=== PATIENT | female | born 2000 | race Caucasian/White ===

== ENCOUNTER 2024-03-07 13:37 | Emergency (ER) | payer OTHER, SELFPAY ==
[2024-03-07 13:39] VITALS: BP 152/86
--- NOTE | 2024-03-07 14:16 | ED.GENMED ---
History of Present Illness
General
Chief Complaint: Abdominal Pain
Source: patient
Exam Limitations: none
Time Seen by Provider: 03/07/24 14:03
Nursing documentation reviewed up to this point in time: agreed with
History of Present Illness
History of Present Illness:
23 yo female here for nausea that came on suddenly 1 a.m., then vomited and diarrhea that has been persistent since then.
Abdominal pain is upper, crampy, comes in waves.
Denies f/c/d/c. She had a normal BM this morning
Pt has not smoked pot in 2-3 weeks due to losing her medical card and not being able to afford it.
Past History
Past History
ED Past Medical History: Psychiatric (anxiety )
ED Past Surgical History: Other (wisdom teeth)
Social History
Tobacco: Non-smoker
Alcohol: Occasional
Personal: Single
Living: with family
Employment: Student
Review of Systems
Review of Systems
Allergies reviewed?: Yes
All Other Systems: ROS reviewed and negative except as documented in HPI and ROS
Constitutional: Denies fever
Respiratory: Denies trouble breathing
Cardiac: Denies chest pain
ABD/GI: Reports abdominal pain and vomiting; Denies diarrhea or constipated
: Denies dysuria, frequency, difficulty voiding or urgency
Musculoskeletal: Reports no symptoms
Skin: Reports no symptoms
Neurological: Reports no symptoms
Phy Exam
Physical Exam
Physical Exam:
GENERAL: No acute distress. A&Ox3.
CONSTITUTIONAL: Afebrile.
EYES: clear, conjunctivae normal
ENMT: moist mucus membranes, Pharynx nl
RESPIRATORY: Regular respirations, nonlabored, lungs clear.
CARDIOVASCULAR: Regular rate and rhythm, no murmurs, no rubs.
GI: Soft, tender generally about the abdomen, frequent episodes abd spasms, normal BS
MUSCULOSKELETAL: Moves with ease. Well perfused.
SKIN: Warm, dry, pink
PSYCH: Normal mood and affect. Well kept, interactive and appropriate
NEUROLOGIC: Awake, alert and oriented. No focal neurological deficits
Course
Orders/Labs/Results
Orders:
Orders
03/07/24 14:13
Dicyclomine HCl [Bentyl] 20 mg IM NOW STA
Ketorolac [Toradol] 15 mg IV NOW STA
03/07/24 14:14
Ondansetron Injectable [Zofran] 4 mg IV NOW STA
Test Result ONCE
03/07/24 14:15
0.9% Sodium Chloride 1000 ml [Nss] 1,000 ml IV BOLUS
03/07/24 14:18
Complete Blood Count/With Diff Urgent
03/07/24 14:53
HYDROmorphone [Dilaudid] 1 mg IV NOW STA
03/07/24 14:56
Comprehensive Metabolic Panel Urgent
HCG, Serum Qualitative Screen Urgent
Lipase Urgent
Abnormal Lab Results
03/07/24 03/07/24
14:18 14:56
WBC 16.1 H 10^3/uL
(4.8-10.8)
Abs Immat Gran (auto) 0.1 H 10^3/uL
(0-0.05)
Absolute Neuts (auto) 15.1 H 10^3/uL
(1.4-6.5)
Absolute Lymphs (auto) 0.7 L 10^3/uL
(1.2-3.4)
Neutrophils % 94.0 H %
(42.2-75.2)
Lymphocytes % 4.0 L %
(20.5-51.1)
Monocytes % 1.4 L %
(1.7-9.3)
Carbon Dioxide 20 L mmol/L
(22-30)
Creatinine 0.5 L mg/dL
(0.6-1.0)
Glucose 115 H mg/dl
(70-99)
AST 42 H U/L
(14-36)
Total Protein 8.7 H g/dl
(6.3-8.2)
Albumin 5.3 H g/dl
(3.5-5.0)
03/07/24 14:18
03/07/24 14:56
Vital Signs
Initial and Last Documented VS:
Initial Vital Signs
Temp Pulse Resp BP Pulse Ox
98.3 F 59 16 152/86 98
03/07/24 13:39 03/07/24 13:39 03/07/24 13:39 03/07/24 13:39 03/07/24 13:39
Last Documented Vital Signs
Temp Pulse Resp BP Pulse Ox
98.3 F 59 22 121/62 100
03/07/24 13:39 03/07/24 13:39 03/07/24 14:00 03/07/24 16:00 03/07/24 16:49
MDM/Problems Addressed
Differential Diagnosis Includes:
gastroenteritis, colitis, diverticulitis
MDM/Problems Addressed:
23 yo female here for nausea that came on suddenly 1 a.m., then vomited and diarrhea that has been persistent since then.
Abdominal pain is upper, crampy, comes in waves.
Denies f/c/d/c. She had a normal BM this morning
Pt has not smoked pot in 2-3 weeks due to losing her medical card and not being able to afford it.
Afebrile, intermittent crampy pains w nausea during exam.
2:55 PM:
After medications and IV fluids patient is extremely anxious writhing around on the stretcher saying nothing has helped her pain. Dilaudid ordered
3:40 p.m.
CBC: WBC 16 (most likely reactive to vomiting)
CMP: No clinically significant abnormality
After IV Dilaudid pt sleeping
Tender, no guarding or wincing, whispers 'yeah' when asked, with every area of he abdomen palpated
Will obtain CT scan
4:40 p.m.
In to re evaluate pt
Pt is 100% pain free, smiling
Abdomen benign. Pt and mom are comfortable foregoing the abd CT as she is asymptomatic, states they live 5 minutes away, return instructions reviewed.
Rx for Bentyl, Zofran sent to her pharmacy
*Critical Care Note
Total Time (30-74mins, 75-104mins- exclusive of procedures): Not Applicable
ED Attending Note
-
Portions of this chart may have been created with voice recognition software.� Occasional wrong word or��sound alike� substitutions may have occurred due to the inherent limitations of voice recognition software.
Discharge Plan
Departure
Patient Disposition: Home (Routine Discharge)
Date of Disposition: 03/07/24
Time of Disposition: 16:43
Patient with high blood pressure during this ER visit?: No
Condition: Good
Discharge Problem:
Gastritis, Abdominal pain
Instructions: Gastritis (DC), Abdominal Pain
Prescriptions:
New
dicyclomine 10 mg capsule
10 mg PO QID PRN (Reason: abd cramps/pain) Qty: 20 0RF
ondansetron 4 mg tablet,disintegrating
4 mg PO Q8H PRN (Reason: nausea and vomiting) 4 Days Qty: 12 0RF
Referrals:
Christina Marinelli MD [Family Provider] - As needed
Activity Restrictions/Additional Instructions:
As we discussed, I sent a prescription to your pharmacy for Bentyl (dicyclomine) for abdominal cramps and also for Zofran to use as needed for nausea
See your doctor in 3-5 days if not 100% better
Return here for fever, repeated vomiting despite the Zofran, worsening pain despite the Bentyl, or feeling sicker in any way.
Interventions
Interventions:
*Risk Screen - Suicide Last Done: 03/07/24 13:39
*General Assessment Last Done: 03/07/24 13:47
*Neglect/Abuse Screening Last Done: 03/07/24 13:39
*ED COVID-19 Vaccine History Last Done: 03/07/24 13:47
*Nursing Disposition Last Done: 03/07/24 17:06
UP-Gzbzvg-Gjteqcnuwu Assessment Last Done: 03/07/24 13:47
Discharge Date and Time
Discharge Date/Time: 03/07/24 17:06
Print Language: GEORGIAN
[2024-03-07] MEDS: NSS 1000 IV (14:18)
[2024-03-07] MEDS: ZOFRAN 4 MG IV (14:19)
[2024-03-07] MEDS: BENTYL 20 MG IM (14:19)
[2024-03-07] MEDS: TORADOL 15 MG IV (14:19)
[2024-03-07 14:38] LABS: % Basophils 0.2 % (0-2); % Immature Granulocytes 0.4 % (0-0.5); % Monocytes 1.4 % (1.7-9.3); Absolute Immature Granulocytes 0.1 10^3/uL (0-0.05); Absolute Lymphocytes 0.7 10^3/uL (1.2-3.4); Absolute Monocytes 0.2 10^3/uL (0.1-0.6); Absolute Neutrophils 15.1 10^3/uL (1.4-6.5); Hematocrit 43.6 % (37.0-47.0); Hemoglobin 14.9 g/dL (12.0-16.0); Mean Corp Hgb Conc. 34.2 g/dL (33.0-37.0); Mean Corpuscular Hgb 29.8 pg (27.0-31.0); Mean Corpuscular Volume 87.2 fL (81.0-99.0); Mean Platelet Volume 9.6 fL (7.4-10.4); Nucleated Red Blood Cells % 0 %; Platelet Count 307 10^3/uL (130-400); Red Cell Dist. Width 12.8 % (11.5-14.5); White Blood Cell Count 16.1 10^3/uL (4.8-10.8)
[2024-03-07] MEDS: DILAUDID 1 MG IV (15:03)
[2024-03-07 15:13] VITALS: BP 140/80
[2024-03-07 15:16] LABS: HCG, Serum Qualitative Screen Negative
[2024-03-07 15:19] LABS: ALT (SGPT) 28 U/L (0-35); AST (SGOT) 42 U/L (14-36); Albumin 5.3 g/dl (3.5-5.0); Alkaline Phosphatase 80 U/L (38-126); Blood Urea Nitrogen 10 mg/dl (7-17); Calcium 9.7 mg/dl (8.4-10.2); Carbon Dioxide 20 mmol/L (22-30); Chloride 104 mmol/L (98-107); Glucose 115 mg/dl (70-99); Lipase 57 U/L (23-300); Sodium 143 mmol/L (135-145); Total Bilirubin 0.6 mg/dl (0.2-1.3); Total Protein 8.7 g/dl (6.3-8.2); eGFR > 60.00
[2024-03-07 16:00] VITALS: BP 121/62
== END 2024-03-07 17:06 | disposition home or self-care (01) ==
LOC: EMR 13:37
PROVIDERS: Student in an Organized Health Care Education/Training Program; EMERGENCY PHYSICIAN Registered Nurse; FAMILY PHYSICIAN Family Medicine
DX: R10.10 Upper abdominal pain, unspecified (principal); K29.70 Gastritis, unspecified, without bleeding
CPT/HCPCS: 99284; 96374; 96375 ×2; 96361; 96372; 80053; 83690; 84703; 85025

== ENCOUNTER 2024-03-09 07:23 | Emergency (ER) | payer OTHER, SELFPAY ==
--- NOTE | 2024-03-09 07:35 | ED.GENMED ---
History of Present Illness
General
Chief Complaint: Abdominal Symptoms
Time Seen by Provider: 03/09/24 07:35
History of Present Illness
History of Present Illness:
TIME OF INITIAL ENCOUNTER: 7:40 AM
HPI: Patient presents due to intermittent abdominal pain over the last couple of days. Upon arrival, she was a rather limited historian as she was intermittently writhing in discomfort and could not give appropriate responses to questioning. The
patient came in due to abdominal pain. She was seen here 2 days ago with vomiting and diarrhea.
EXAM:
GENERAL: The patient appeared in severe distress upon arrival rocking back and forth on the stretcher
HEENT: Moist oral mucosa
CARDIOVASCULAR: No murmurs, normal heart rate, regular rhythm, No chest wall tenderness
PULMONARY: No respiratory distress, breath sounds are clear and equal
ABDOMEN: Soft with no peritoneal signs but exam limited, no definite tenderness
NEUROLOGIC: Excellent strength all extremities, no coordination deficits
PSYCHIATRIC: Somewhat of a bizarre affect at times
EXTREMITIES: Nontender, no edema, moves all extremities equally
SKIN: No rash, no lesions
NUMBER AND COMPLEXITY OF PROBLEMS ADDRESSED AT THE ENCOUNTER
� Chronic conditions affecting care: No significant past medical history but does have a history of anxiety
� Acute Exacerbation and/or Progression of Chronic Illness: This is an acute problem
� Differential Diagnosis includes: Inflammatory bowel disease, irritable bowel syndrome, anxiety
AMOUNT AND/OR COMPLEXITY OF DATA TO BE REVIEWED AND ANALYZED
� I performed an independent evaluation of and my interpretation is:
EKG:
CT: CT imaging personally reviewed and agree with radiologist interpretation that there is a small amount of free fluid and suggestion for a recently ruptured right ovarian cyst
X-rays:
Laboratory Studies: White count 15.6, hemoglobin 14.3, hCG negative, bicarb 21
Other:
� Review of other/old records: I reviewed records, the patient had a white count of 16.1 2 days ago and hCG was negative at that time. No imaging was obtained at that time.
� Clinical information was obtained by an independent historian: I spoke to family at bedside
� Prescriptions/Medications Considered but not given: Lives at home
� Further testing considered but not performed: Considered ultrasound however the size of the ovarian cyst is relatively small and symptoms are more related to nausea/vomiting as opposed to pelvic pain.
RISK OF COMPLICATIONS AND/OR MORBIDITY OR MORTALITY OF PATIENT MANAGEMENT
� Social determinants of health affecting care: Lives at home, has intermittently been using marijuana
� Discussion with other providers:
� Escalation of care including admission/observation vs risk of discharge considered:
ANY OTHER UPDATES:
8:15 AM: Patient now admits to using marijuana last night however had not been using it regularly as she had in the past. Arrives with rather significant discomfort and leukocytosis persist�will obtain CT imaging.
9:30 AM: Patient went over to CT, she could not lay flat and refused to try further for CT imaging
10 AM: On reassessment, the patient appears more comfortable and was resting comfortably however when I awaken her, she says that she wants to feel better immediately�will try Reglan with Benadryl.
1 PM: Added Dilaudid for additional pain control.
2:10 PM: Appears comfortable on reassessment. Based on CT, I did inform patient regarding ovarian cyst with possible rupture.
Past History
Past History
ED Past Medical History: Psychiatric (anxiety )
ED Past Surgical History: Other (wisdom teeth)
Social History
Tobacco: Non-smoker
Alcohol: Occasional
Personal: Single
Living: with family
Employment: Student
Phy Exam
Physical Exam
Physical Exam:
See HPI
Course
Orders/Labs/Results
Orders:
Orders
03/09/24 07:42
0.9% Sodium Chloride 1000 ml [Nss] 1,000 ml IV BOLUS
Lorazepam [Ativan] 1 mg IV NOW STA
03/09/24 07:43
Ondansetron Injectable [Zofran] 4 mg IV NOW STA
03/09/24 07:44
CT Abd/pelvis W Iv Cont Urgent
Comment:
Reason For Exam: periumbilical pain
Test Result ONCE
03/09/24 07:45
Ketorolac [Toradol] 15 mg IV NOW STA
03/09/24 08:01
Complete Blood Count/With Diff Urgent
Comprehensive Metabolic Panel Urgent
HCG, Serum Qualitative Screen Urgent
Lipase Urgent
03/09/24 10:00
Diphenhydramine [Benadryl] 25 mg IV NOW STA
Metoclopramide [Reglan] 10 mg IV NOW STA
03/09/24 12:36
HYDROmorphone [Dilaudid] 1 mg IV NOW STA
Abnormal Lab Results
03/09/24
08:01
WBC 15.6 H 10^3/uL
(4.8-10.8)
Abs Immat Gran (auto) 0.1 H 10^3/uL
(0-0.05)
Absolute Neuts (auto) 13.6 H 10^3/uL
(1.4-6.5)
Neutrophils % 87.6 H %
(42.2-75.2)
Lymphocytes % 8.0 L %
(20.5-51.1)
Potassium 3.4 L mmol/L
(3.5-5.1)
Carbon Dioxide 21 L mmol/L
(22-30)
BUN 20 H mg/dl
(7-17)
Glucose 113 H mg/dl
(70-99)
AST 54 H U/L
(14-36)
03/09/24 08:01
03/09/24 08:01
Vital Signs
Initial and Last Documented VS:
Initial Vital Signs
Temp
36.7 C
03/09/24 07:25
Last Documented Vital Signs
Temp Pulse Resp BP Pulse Ox
36.7 C 84 18 167/75 100
03/09/24 07:25 03/09/24 12:50 03/09/24 12:50 03/09/24 12:50 03/09/24 12:50
*Critical Care Note
Total Time (30-74mins, 75-104mins- exclusive of procedures): Not Applicable
ED Attending Note
-
Portions of this chart may have been created with voice recognition software.� Occasional wrong word or��sound alike� substitutions may have occurred due to the inherent limitations of voice recognition software.
Discharge Plan
Departure
Patient Disposition: Home (Routine Discharge)
Date of Disposition: 03/09/24
Time of Disposition: 14:16
Patient with high blood pressure during this ER visit?: Yes
Discharge Problem:
Abdominal pain
Instructions: Diarrhea in teens and adults, Nausea and Vomiting, Adult (DC), Ovarian Cyst ED, Abdominal Pain, BLOOD PRESSURE
Prescriptions:
No Action
dicyclomine 10 mg capsule
10 mg PO QID PRN (Reason: abd cramps/pain) Qty: 20 0RF
ondansetron 4 mg tablet,disintegrating
4 mg PO Q8H PRN (Reason: nausea and vomiting) 4 Days Qty: 12 0RF
Referrals:
Mukund Phipps MD [Family Provider] -
Maryellen Burgos MD [Active] - Follow up in 2-3 days
Activity Restrictions/Additional Instructions:
White count remains elevated however lower today than it was the other day. Other basic blood work is unremarkable. We gave a liter of fluid. We also gave Toradol along with fluids, Zofran, Reglan with Benadryl and then a dose of Dilaudid.
CAT scan shows '1. Limited evaluation of the bowel given paucity of intra-abdominal fat and absence of oral contrast. The appendix is not visualized, though likely located somewhere within the pelvis. No abscess or organized fluid collection
identified. 2. Small amount of complex/hemorrhagic free fluid within the pelvis with prominent right adnexal cyst measuring up to 2.4 cm. Findings and patient pain may be related to ruptured cyst. 3. 2.8 mm nodule within the left lower lobe,
of doubtful clinical significance in a patient of this age.'
Regarding the note of ovarian cyst, I have given you the contact information of a local receptionist telephone operator. Please follow-up with your primary care doctor. I recommend 3-4 tcil-tku-uwgvzin ibuprofen (Motrin) every 8 hours with food for a few days.
Return here if worse or other concerns.
I strongly recommend stopping marijuana use completely given the possibly of cannabinoid hyperemesis syndrome.
Interventions
Interventions:
*Risk Screen - Suicide Last Done: 03/09/24 07:25
*General Assessment Last Done: 03/09/24 07:57
*Neglect/Abuse Screening Last Done: 03/09/24 07:25
ED- Fall Risk Assessment Last Done: 03/09/24 07:57
*ED COVID-19 Vaccine History Last Done: 03/09/24 07:57
QJ-Rtsgdr-Qavaesieow Assessment Last Done: 03/09/24 08:21
Discharge Date and Time
Print Language: BOTSWANAN
[2024-03-09] MEDS: ATIVAN 1 MG IV (08:05)
[2024-03-09] MEDS: NSS 1000 IV (08:07)
[2024-03-09] MEDS: ZOFRAN 4 MG IV (08:08)
[2024-03-09] MEDS: TORADOL 15 MG IV (08:19)
[2024-03-09 08:22] LABS: % Basophils 0.3 % (0-2); % Eosinophils 0.1 % (0-6); % Immature Granulocytes 0.3 % (0-0.5); % Monocytes 3.7 % (1.7-9.3); % Neutrophils 87.6 % (42.2-75.2); Absolute Immature Granulocytes 0.1 10^3/uL (0-0.05); Absolute Lymphocytes 1.2 10^3/uL (1.2-3.4); Absolute Monocytes 0.6 10^3/uL (0.1-0.6); Absolute Neutrophils 13.6 10^3/uL (1.4-6.5); Hematocrit 39.6 % (37.0-47.0); Hemoglobin 14.3 g/dL (12.0-16.0); Mean Corp Hgb Conc. 36.1 g/dL (33.0-37.0); Mean Corpuscular Volume 85.9 fL (81.0-99.0); Mean Platelet Volume 9.8 fL (7.4-10.4); Nucleated Red Blood Cells % 0 %; Platelet Count 299 10^3/uL (130-400); Red Blood Cell Count 4.61 10^6/uL (4.20-5.40); Red Cell Dist. Width 12.5 % (11.5-14.5); White Blood Cell Count 15.6 10^3/uL (4.8-10.8)
[2024-03-09 08:32] LABS: HCG, Serum Qualitative Screen Negative
[2024-03-09 08:39] LABS: ALT (SGPT) 32 U/L (0-35); AST (SGOT) 54 U/L (14-36); Albumin 4.6 g/dl (3.5-5.0); Alkaline Phosphatase 69 U/L (38-126); Blood Urea Nitrogen 20 mg/dl (7-17); Calcium 8.8 mg/dl (8.4-10.2); Carbon Dioxide 21 mmol/L (22-30); Chloride 105 mmol/L (98-107); Estimated Creatinine Clearance > 125 ml/min; Glucose 113 mg/dl (70-99); Lipase 121 U/L (23-300); Potassium 3.4 mmol/L (3.5-5.1); Sodium 141 mmol/L (135-145); Total Bilirubin 0.4 mg/dl (0.2-1.3); Total Protein 7.4 g/dl (6.3-8.2); eGFR > 60.00
[2024-03-09] MEDS: BENADRYL 25 MG IV (10:55)
[2024-03-09] MEDS: REGLAN 10 MG IV (10:55)
[2024-03-09] MEDS: DILAUDID 1 MG IV (12:41)
[2024-03-09 12:50] VITALS: BP 167/75
[2024-03-09 14:28] VITALS: BP 123/79
== END 2024-03-09 14:30 | disposition home or self-care (01) ==
LOC: EMR 07:23
PROVIDERS: EMERGENCY PHYSICIAN Emergency Medicine; FAMILY PHYSICIAN Internal Medicine
DX: R10.9 Unspecified abdominal pain (principal); F12.90 Cannabis use, unspecified, uncomplicated; N83.201 Unspecified ovarian cyst, right side
CPT/HCPCS: 96374; 96375; 96361; 99284; 74177; 80053; 83690; 84703; 85025; Q9967

== ENCOUNTER 2024-03-12 11:42 | Inpatient (IN) | payer OTHER, SELFPAY ==
--- NOTE | 2024-03-12 08:31 | ED.GENMED ---
History of Present Illness
General
Chief Complaint: Abdominal Symptoms
Source: patient and records
Exam Limitations: none
Time Seen by Provider: 03/12/24 08:20
Nursing documentation reviewed up to this point in time: agreed with
History of Present Illness
History of Present Illness:
23-year-old female presents emergency department complaining of abdominal pain, nausea and vomiting. She was seen in the ED 5 days ago and 3 days ago for similar. Mother picked her up from college last week. She last used marijuana prior to her
last hospital visit. Unclear if she has used recently.
Past History
Past History
ED Past Medical History: Psychiatric (anxiety )
ED Past Surgical History: Other (wisdom teeth)
Social History
Tobacco: Non-smoker
Alcohol: Occasional
Drug: Marijuana
Personal: Single
Living: with family
Employment: Student
Review of Systems
Review of Systems
Allergies reviewed?: Yes
All Other Systems: Not applicable
Constitutional: Reports no symptoms
EENT: Reports no symptoms
Respiratory: Reports no symptoms
Cardiac: Reports no symptoms
ABD/GI: Reports abdominal pain, nausea and vomiting
: Reports no symptoms
Musculoskeletal: Reports no symptoms
Skin: Reports no symptoms
Neurological: Reports no symptoms
Endocrine: Reports no symptoms
Hematologic/Lymphatic: Reports no symptoms
Psychiatric: Reports no symptoms
Phy Exam
Physical Exam
Physical Exam:
Physical Exam
General: Writhing, crying, afebrile
Neck: supple. no meningeal signs. normal posterior pharynx
Heart: s1/s2 regular rate and rhythm, no murmur. equal radial
pulses.
HEENT: Pupils equal round reactive to light, EOMI
Lungs: no acute respiratory distress. clear bilaterally
Abdomen: normal bowel sounds. Soft, not tender. no CVAT
Neuro: alert and oriented. no focal neurological deficits cranial nerves II through XII intact
Skin: no rash
Psychiatric: well kept. interactive and cooperative
Extremities: no edema. no calf tenderness. negative homans. good distal pulses
Course
Orders/Labs/Results
Orders:
Orders
03/12/24 Breakfast
NPO
Allow oral meds: Yes
Allow clear liquids: No
NPO with Ice Chips: Yes
03/12/24 08:22
Electrocardiogram (*1) Urgent
Reason for Study: QTc Monitoring
EKG- Treatment ONCE
03/12/24 08:29
IV Insert/Care/Rem.- Treatment PRN
Haloperidol Lactate [Haldol] 1 mg IV NOW STA
Lactated Ringers [Lr] 1,000 ml IV BOLUS
03/12/24 08:30
Test Result ONCE
03/12/24 08:39
Capsaicin [Zostrix-Hp 0.075% Cream] See Dose Instructions TOPICAL STAT STA
03/12/24 08:48
Cardiovascular Evaluation Urgent
Comment: ADD ON
Complete Blood Count/With Diff Urgent
Comprehensive Metabolic Panel Urgent
Glycohemoglobin (HgbA1c) Urgent
HCG, Serum Qualitative Screen Urgent
Hepatitis B Core Ab, Total Urgent
Comment: ADD ON
Hepatitis B Surface Antibody Urgent
Comment: ADD ON
Hepatitis B Surface Antigen Urgent
Comment: ADD ON
Hepatitis C Antibody Urgent
Comment: ADD ON
Lipase Urgent
TSH Urgent
Comment: ADD ON
03/12/24 09:59
Haloperidol Lactate [Haldol] 1 mg IV NOW STA
03/12/24 10:45
0.9% Sodium Chloride 1000 ml [Nss] 1,000 ml IV BOLUS
Pantoprazole [Protonix IV] 40 mg IV NOW STA
03/12/24 11:07
HYDROmorphone [Dilaudid] 1 mg IV Q4HPRN PRN
03/12/24 11:17
Consult SENIOR ENERGY TRADER [SENIOR ENERGY TRADER CONSULT] Routine
Consulting Provider: Mariah Judge
Was physician already notified: Yes
Reason for consult: abd pain with ruptured cyst and pelvic congestion
03/12/24 11:18
SURGICAL CONSULT Routine
Consulting Provider: Eduin Jin
Was physician already notified: Yes
Reason for consult: abdominal pain
Pelvis & Transvaginal US [US Pelvis W Transvag Combined] Urgent
Comment:
Reason For Exam: pelvic pain
03/12/24 11:20
Admit/Transfer Patient As Directed
Co-Sign Provider:
Level of Care: Inpatient admission
Assign to:: Medical/Surgical
Physician / Group: Hospitalist
Diagnosis: abdominal pain
Reason for Hospitalization: abdominal pain
Expected length of stay greater than two midnights?: Yes
ELOS- Estimated Length of Stay in days: 3
I certify the patient meets the requirements for IP care: Yes
Lactated Ringers [Lr] 1,000 ml IV BOLUS
PRN Pain Medication Management As Directed
May give lesser potent ordered pain med per pt: Yes
preference::
Protocol:: Medication orders for pain may be administered in a
manner that supports deferring to patient preference
when the pt is:
- Requesting an ordered lesser potent pain medication.
Least to most potent pain medications are defined
as: acetaminophen < NSAID < tramadol < opioids
(morphine, oxycodone, hydromorphone).
- Requesting a lesser dose of the same medication IF
ORDERED.
- Requesting a less intrusive route of administration
if both routes are prescribed by the provider (PO <
IV).
03/12/24 11:21
Code Status As Directed
Resuscitation Status: Full Code
Chlamydia/GC by PCR Urgent
AIDAN Source: Urine
Specimen Description:
Source:: URINE
03/12/24 11:24
UA Reflex to Culture [Urinalysis Reflex To Culture] Urgent
03/12/24 11:32
CT Abd/pel W Iv And Oral Contr Urgent
Comment:
Reason For Exam: abdominal pain
Iohexol [Omnipaque] See Protocol PO NOW STA
Metoclopramide [Reglan] 10 mg IV NOW STA
03/12/24 11:37
Add On- LAB Routine
Tests Added?: HepC ab, HepB surf Ab and Ag, HepB total core Ab
Add On- LAB Routine
Tests Added?: TSH, HgbA1c, Lipids
03/12/24 11:41
Drug Screen, Urine [Urine Drug Abuse Screen] Routine
03/12/24 12:00
Piperacillin/Tazo 3.375 Gram [Zosyn] 3.375 gram in 50 ml IV Q6H
03/12/24 13:05
0.9% Sodium Chloride 1000 ml [Nss] 1,000 ml IV 125 mls/hr
Acetaminophen [Tylenol] 650 mg PO Q4HPRN PRN
Bisacodyl [Dulcolax] 10 mg RECTAL [id number] PRN
Docusate W/Senna [Senokot-S] 1 tablet PO BIDPRN PRN
Ketorolac [Toradol] 10 mg IV Q6HPRN PRN
Ondansetron Injectable [Zofran] 4 mg IV Q8HPRN PRN
Polyethylene Glycol Powder [Miralax] 17 grams PO DAILYPRN PRN
03/12/24 13:05
Activity As Directed
Activity Level: Out of Bed-Early Mobility
Pneumatic Compression Sleeves As Directed
Type: Knee high
Vital Signs As Directed
Frequency: Per unit guidelines
DX Deep Vein Thrombosis Video Routine
03/13/24 06:00
Complete Blood Count/With Diff IN AM
Comprehensive Metabolic Panel IN AM
Abnormal Lab Results
03/12/24
08:48
WBC 16.8 H 10^3/uL
(4.8-10.8)
RBC 5.67 H 10^6/uL
(4.20-5.40)
Hgb 16.9 H g/dL
(12.0-16.0)
Hct 47.2 H %
(37.0-47.0)
Abs Immat Gran (auto) 0.1 H 10^3/uL
(0-0.05)
Absolute Neuts (auto) 13.8 H 10^3/uL
(1.4-6.5)
Absolute Monos (auto) 1.0 H 10^3/uL
(0.1-0.6)
Neutrophils % 82.1 H %
(42.2-75.2)
Lymphocytes % 11.1 L %
(20.5-51.1)
BUN 18 H mg/dl
(7-17)
Glucose 128 H mg/dl
(70-99)
AST 37 H U/L
(14-36)
Total Protein 8.5 H g/dl
(6.3-8.2)
Albumin 5.1 H g/dl
(3.5-5.0)
03/12/24 08:48
03/12/24 08:48
Vital Signs
Initial and Last Documented VS:
Initial Vital Signs
Temp Pulse Resp Pulse Ox
97.9 F 92 16 95
03/12/24 08:14 03/12/24 08:14 03/12/24 08:14 03/12/24 08:14
Last Documented Vital Signs
Temp Pulse Resp BP Pulse Ox
97.8 F 77 18 148/112 99
03/12/24 13:12 03/12/24 13:12 03/12/24 13:12 03/12/24 13:12 03/12/24 13:12
MDM/Problems Addressed
Differential Diagnosis Includes:
Bowel obstruction, viral syndrome, cannabis hyperemesis
MDM/Problems Addressed:
23-year-old female with nausea and vomiting, intractable pain and vomiting. Suspect due to cannabis. Negative CT in the past.
*Radiology
Radiology exam reviewed: radiology read reviewed (CT abdomen pelvis no acute, except likely ruptured cyst on CT on 03/09/2024)
*Pulse Oximetry
Patient hypoxic: no
*EKG
Interpreted by ED Provider?: Yes
EKG Intrepretation Date: 03/12/24
EKG Intrepretation Time: 08:24
Interpretation: normal
Comparison EKG: no comparison EKG present
Heart Rate: 74
Rate: normal
Rhythm: sinus
[place]: normal axis
Interval: normal interval
QRS Pattern: normal QRS
Ischemia: no ischemia
*Auto Body Builder Apprentice Interpretation
Rate: normal
Interpretation: normal
Heart Rate: 75
Rhythm: sinus
*Critical Care Note
Total Time (30-74mins, 75-104mins- exclusive of procedures): Not Applicable
Patient Management
Social determinants of health affecting care: Living situation, Substance abuse (marijuana) and Strong social support
Discussion with other providers: Hospitalist
Escalation/DeEscalation of care consider admission/obs:
Admit indicated
ED Attending Note
-
Portions of this chart may have been created with voice recognition software.� Occasional wrong word or��sound alike� substitutions may have occurred due to the inherent limitations of voice recognition software.
Discharge Plan
Departure
Patient Disposition: Admit
Date of Disposition: 03/12/24
Time of Disposition: 10:33
Admit to: Med/Surg
Presentation/result/management discussed w/ accepting MD/DO: Hospitalist
Patient with high blood pressure during this ER visit?: Yes
Condition: Fair
Discharge Problem:
Intractable cyclical vomiting
Interventions
Interventions:
*Risk Screen - Suicide Last Done: 03/12/24 08:14
*General Assessment Last Done: 03/12/24 13:00
*Neglect/Abuse Screening Last Done: 03/12/24 08:14
ED- Fall Risk Assessment Last Done: 03/12/24 10:20
*ED COVID-19 Vaccine History Last Done: 03/12/24 10:18
*Nursing Disposition Last Done: 03/12/24 13:00
FI-Tzpjmg-Ekasqeucos Assessment Last Done: 03/12/24 10:20
Discharge Date and Time
Discharge Date/Time: 03/12/24 13:01
[2024-03-12] MEDS: LR 1000 IV ×2 (08:43→15:32)
[2024-03-12] MEDS: HALDOL 1 MG IV ×2 (08:44→10:06)
[2024-03-12 09:00] LABS: % Basophils 0.3 % (0-2); % Eosinophils 0.2 % (0-6); % Immature Granulocytes 0.5 % (0-0.5); % Lymphocytes 11.1 % (20.5-51.1); % Monocytes 5.8 % (1.7-9.3); % Neutrophils 82.1 % (42.2-75.2); Absolute Basophils 0.1 10^3/uL (0-0.2); Absolute Immature Granulocytes 0.1 10^3/uL (0-0.05); Absolute Lymphocytes 1.9 10^3/uL (1.2-3.4); Absolute Neutrophils 13.8 10^3/uL (1.4-6.5); Hematocrit 47.2 % (37.0-47.0); Hemoglobin 16.9 g/dL (12.0-16.0); Mean Corp Hgb Conc. 35.8 g/dL (33.0-37.0); Mean Corpuscular Hgb 29.8 pg (27.0-31.0); Mean Corpuscular Volume 83.2 fL (81.0-99.0); Mean Platelet Volume 9.2 fL (7.4-10.4); Nucleated Red Blood Cells % 0 %; Platelet Count 398 10^3/uL (130-400); Red Blood Cell Count 5.67 10^6/uL (4.20-5.40); Red Cell Dist. Width 12.3 % (11.5-14.5); White Blood Cell Count 16.8 10^3/uL (4.8-10.8)
[2024-03-12 09:16] LABS: ALT (SGPT) 29 U/L (0-35); AST (SGOT) 37 U/L (14-36); Albumin 5.1 g/dl (3.5-5.0); Alkaline Phosphatase 76 U/L (38-126); Blood Urea Nitrogen 18 mg/dl (7-17); Carbon Dioxide 23 mmol/L (22-30); Chloride 100 mmol/L (98-107); Glucose 128 mg/dl (70-99); Lipase 160 U/L (23-300); Potassium 3.6 mmol/L (3.5-5.1); Sodium 141 mmol/L (135-145); Total Bilirubin 1.2 mg/dl (0.2-1.3); Total Protein 8.5 g/dl (6.3-8.2); eGFR > 60.00
[2024-03-12] MEDS: ZOSTRIX-HP 0.075% CREAM 1 APPLIC TOPICAL (09:25)
[2024-03-12 09:41] LABS: HCG, Serum Qualitative Screen Negative
[2024-03-12 10:16] VITALS: BP 136/89
[2024-03-12] MEDS: PROTONIX IV 40 MG IV (11:16)
[2024-03-12] MEDS: DILAUDID 1 MG IV ×3 (11:16→19:57)
[2024-03-12] MEDS: NSS 1000 IV ×3 (11:16→23:04)
--- NOTE | 2024-03-12 11:40 | HPS.HSE ---
Addendum entered and electronically signed by Segundo Cooper MD 03/12/24 11:55:
#2.8 mm nodule in the left lower lobe
Advised dedicated chest CT as outpatient - patient and family verbalized understanding
Original Note:
Family Physician
-
Family Physician: Mukund Phipps
Chief Complaint
-
abdominal pain
History of Present Illness
23yo F with PMHx of abdominal pain last summer with admission to [facility] came with same episode of abd pain with vomiting started 5 days ago. She was in ED 3 days prior to this admisison and CT abd was done. At that time it showed 2.8mm pulmonary
nodule, small amount of peritoneal free fluid with possible ruptured adnexal cyst and prominent periuterine varicosities. Mild persistent leukocytosis since 03/07/24 but withouit fevers. Appendix was not visualized.
Patient is sexually active with 1 partner and not consistent with barrier protection. No Hx of . Currently has her periods started on the day of admisison 03/12/24
Last marijuana use 1 moth ago. test neg
Medical History
Past Medical History
Past Medical History: Reports None
Past Surgical History: Reports None
Social History
Tobacco: Non-smoker
Alcohol: Occasional
Drug: Marijuana
Family History
Family History: Adopted
Allergies / Home Medications
Allergies reflects when Allergies were last updated in [employer].
Home Medications with original date entered in [employer]
Allergy/Medication List:
Allergies
Allergy/AdvReac Type Severity Reaction Status Date / Time
No Known Allergies Allergy Verified 03/12/24 08:19
Home Medications
dicyclomine 10 mg capsule 10 mg PO QID PRN abd cramps/pain #20 caps 03/07/24
ondansetron 4 mg disintegrating tablet 4 mg PO Q8H PRN nausea and vomiting 4 days #12 tabs 03/07/24
Review of Systems
-
History Source: Patient
A 12 point ROS was completed and negative except as noted: Yes
Abdomen/GI: Reports See HPI
Physical Exam
Vital Signs
Vital Signs
Temp Pulse Resp BP Pulse Ox
97.9 F 89 16 136/89 98
03/12/24 08:14 03/12/24 10:16 03/12/24 10:16 03/12/24 10:16 03/12/24 10:16
Physical Exam
General: Appears in Distress and Pain; No Fever or Chills
HEENT: Anicteric; No Moist mucous membranes or Thrush
Respiratory: Clear; No Wheezes, Rales or Rhonchi
GI: Non Distended and Tender (periumbilical)
Musculoskeletal: No Clubbing, No Cyanosis and No Edema
Skin: Warm and Dry; No Jaundice
Neuro: Awake, Alert, Oriented and AO x 3
Psych: Calm
Laboratory Results
-
03/12/24 08:48
03/12/24 08:48
Laboratory Results
Total Bilirubin 1.2 mg/dl (0.2-1.3) 03/12/24 08:48
AST 37 U/L (14-36) H 03/12/24 08:48
ALT 29 U/L (0-35) 03/12/24 08:48
Alkaline Phosphatase 76 U/L (38-126) 03/12/24 08:48
Lipase 160 U/L (23-300) 03/12/24 08:48
Data Reviewed
-
CT Scan: Report Reviewed by me
Lab Data: Labs Reviewed by me
Impression/Plan
-
A/P:
#Abdominal pain with leukocytosis
multiple differential: ruptured ovarian cyst, PID, pelvic congestion, with non-visualized appendix - still cannot exclude appendicitis
Repeat CT abd/pelvis with IV and oral contrast
Zosyn while awaiting for results of the test
UA and urine for GC and Chlamydia
US pelvic
STATE AUDITOR consult
Gen Sx consult
NPO
Zofran/Regaln PRN
Pain mgmt
#marijuana use
unlikely cannabis induced vomiting
Check Urine drug screen
#Dehydration
IVF
#Mild AST elevation
hepatitis panel and follow LFT
DVT ppx on SCDs until further results
Full code
I have spent at least 79min reviewing the chart, test results, communication with consultants and direct patient care
--- NOTE | 2024-03-12 12:02 | W.PN.UPDATE ---
Update Note
Progress Note Update
Pt verbalized agreement to have HIV test
Will request records from [facility] about previous hospitalization
[2024-03-12 12:08] VITALS: BMI 20.2
[2024-03-12 12:09] VITALS: BP 128/74
[2024-03-12 12:59] LABS: HDL Cholesterol 42 mg/dl; LDL Cholesterol, Calculated 121 mg/dl; Total Cholesterol 190 mg/dl (50-199); Triglyceride 136 mg/dl (10-149); Very Low Density Lipoprotein 27 mg/dl (0-30)
[2024-03-12 13:12] VITALS: BP 148/112
--- NOTE | 2024-03-12 13:25 | CON.GS ---
Consultation
-
Reason for Consultation: Abdominal pain
Medical History
-
Chief Complaint: Abdominal pain
History of Present Illness:
Patient is a 23-year-old female admitted by the hospitalist through emergency department evaluation today for persistent abdominal pain and nausea/vomiting.
Patient's boyfriend's parents at bedside. Obtaining detailed history is difficult. Patient and boyfriend's family at bedside report 5-day history of persistent abdominal pain. Generalized and not localizing to pelvis or right lower quadrant.
Intermittent nausea and vomiting. Anorexia and minimal p.o. intake. She has been seen and discharged after evaluation in the emergency department on 03/07/2024 as well as 03/09/2024.
In further discussions with boyfriend's mother she states that Nora had a similar evaluation at [facility] in September for acute onset of abdominal pain. She provided a copy of CT imaging report which was unremarkable from a GI and visceral
standpoint. General surgery consultation was requested due to abdominal pain and inability to see appendix on CT imaging.
Past Medical History
Past Medical History: Other ( Anxiety, history of marijuana use reported in medical records, prior history of abdominal pain)
Past Surgical History: Other ([place] teeth)
Social History
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
Family History
Family History: Unable to Obtain ( patient providing little history)
Allergies / Home Medications
Allergy/AdvReac Type Severity Reaction Status Date / Time
No Known Allergies Allergy Verified 03/12/24 08:19
�Medication �Instructions �Recorded �Confirmed �Type
dicyclomine 10 mg capsule 10 mg PO QID PRN abd cramps/pain 03/07/24 Rx
#20 caps
ondansetron 4 mg disintegrating 4 mg PO Q8H PRN nausea and 03/07/24 Rx
tablet vomiting 4 days #12 tabs
Review of Systems
-
Unable to obtain full review of systems at this time due to: Acuity
History Source: Patient and Family
All other systems: Negative unless noted
A 10 point review of systems was completed, and was negative except as per HPI.
Physical Exam
Vital Signs
Temp Pulse Resp BP Pulse Ox
97.8 F 77 18 148/112 99
03/12/24 13:12 03/12/24 13:12 03/12/24 13:12 03/12/24 13:12 03/12/24 13:12
03/11/24 03/12/24 03/13/24
06:59 06:59 06:59
Actual Weight 55 kg
Body Mass Index (BMI) 20.2
Lab Results
03/12/24 08:48
03/12/24 08:48
WBC 16.8 10^3/uL (4.8-10.8) H 03/12/24 08:48
Hgb 16.9 g/dL (12.0-16.0) H 03/12/24 08:48
Hct 47.2 % (37.0-47.0) H 03/12/24 08:48
Plt Count 398 10^3/uL (130-400) D 03/12/24 08:48
Abs Immat Gran (auto) 0.1 10^3/uL (0-0.05) H 03/12/24 08:48
Neutrophils % 82.1 % (42.2-75.2) H 03/12/24 08:48
Physical Exam
General: Well Developed, Well Nourished and Other (Crying at times and limited in providing detailed history)
HEENT: Normocephalic, Anicteric and Moist Mucous Membranes
Respiratory: Non Labored Respirations
GI: Soft, Non Distended and Tender ( mild tenderness palpation, greatest in the epigastrium. Some suprapubic tenderness. No rebound, rigidity or guarding.)
Skin: Warm
Neuro: AO x 3
Data Reviewed
-
CT Scan: Image Personally Visualized and interpreted, Report Reviewed by me, Discussed with Physician, Discussed with Patient and Discussed with Family
Assessment / Plan
-
Assessment: 23-year-old female with acute abdominal pain, nausea/vomiting/anorexia and leukocytosis
Recent CT imaging with prominent right adnexal cyst measuring up to 2.5 cm and small amount of complex/hemorrhagic free fluid in the pelvis suggestive of cyst rupture. Follow-up pelvic ultrasound today with likely small involuting right ovarian
cyst. No free fluid within the cul-de-sac. Bilateral ovarian blood flow normal.
Recent CT imaging unable to visualize appendix. No obvious GI visceral pathology within limits of nonoral contrast CT imaging.
Plan: Given persistent symptoms, leukocytosis and limits of initial noncontrast CT imaging would recommend repeat CT abdomen/pelvis with oral/IV contrast imaging for more thorough GI evaluation although clinical index of suspicion for acute
appendicitis is lower given nonlocalizing pain without rebound or guarding as well as no fever nor tachycardia despite 5 days of symptoms.
Will follow awaiting results of CT imaging study
Reviewed with admitting hospitalist and DEVELOPMENT TECHNOLOGIST service. Discussed with patient and boyfriend's parents at bedside.
[2024-03-12 13:53] LABS: TSH 2.32 uIU/ml (0.47-4.68)
[2024-03-12] MEDS: TORADOL 10 MG IV (14:37)
[2024-03-12] MEDS: ZOFRAN 4 MG IV (14:44)
--- NOTE | 2024-03-12 14:45 | CON.MD ---
Addendum entered and electronically signed by Mariah Judge DO 03/13/24 12:24:
Time spent in total face to face, independent review/interpretation of pelvic US, review other specialists notes/ reports, documentation 45 min
Original Note:
Consultation - Medical
-
23 yo G0 female with LMP now was admitted with acute abdominal pain over last few days. Pain started 03/09 and was seen in ED. CT showed a 2.4 cm right adnexal cyst and there was suspicion for ruptured cyst. She was sent home but has not improved.
Describes pain as localized central abdomen, nonradiating with some associated nausea/vomiting. No nausea/vomiting. She is sexually active with total of 2 lifetime partners. Currently has boyfriend. Denies abnormal vaginal discharge. Was seen in
September at [place] [facility] for similar pains. Says was sent home with dx of abdominal pain but no definitive source was found. Showed me portal and negative hepatitis panel and negative GC/CT cultures at that time.
PMH: negative; hx of cutting/self mutiliation 'years ago' (scars on abd).
PSH: negative
Gynhx: does not routinely see Radiology Technologist; denies prior hx GC/CT or STI, +hx menstrual cramps/dysmenorrhea
NKDA
Meds: none
Sochx: +tobacco (last 1 month ago); + marijuana (last approx 1 month ago), occasional etoh-infrequent
Famhx: unknown -she is adopted.
ROS: denies fever but reports episodes of feeling hot, denies chills, +abd pain, +nausea +vomiting earlier..
Negative vaginal discharge
PE: VSS afeb T97.8
appearance: general malaise, appears unwell/uncomfortable
Heart: regular rate
Lungs: reg resp rate, breathes comfortably
Abd: soft, + tenderness with palpation below umbilicus diffusely, no guarding, rebound or rigidity
Spec exam: + menstrual blood, no cervical motion tenderness, uterus normal size nontender
no adnexal fullness or tenderness
Imaging: pelvic US: reviewed images myself plus report: uterus 8.4 x 2.79 x 4.36cm with endometrium .35cm, normal adnexal,, no cysts or masses.
CT 03/09 showed 2.4cm right ovarian cyst otherwise unremarkable pelvic organs.
WBC 16.8 hgb 16.9 plt 398
Impression:
Abdominal pain with leukocytosis, nausea, vomiting.
-Does not examine to have cervical motion tenderness or impressive uterine tenderness for PID.
-GC/CT sent from urine
-UA C&S ordered
-pelvic US today normal. Ruptured cyst would have associated improvement in pain once rupture occurs which is not this clinical picture.
-Agree with general surg recommendation for CT. If appendix normal, would consider treating empirically with broad spectrum abx x24-48 hrs afeb and improving WBC.
D/W Segundo Ismalov.
[2024-03-12] MEDS: OMNIPAQUE 50 ML PO (14:47)
[2024-03-12 15:10] VITALS: BP 139/105
[2024-03-12] MEDS: ZOSYN 50 IV ×3 (15:16→23:04)
[2024-03-12] MEDS: REGLAN 10 MG IV (15:17)
[2024-03-12 15:51] LABS: Urine Albumin Negative (Neg - Trace); Urine Bilirubin Negative (Negative); Urine Character Clear (Clear); Urine Color Yellow; Urine Glucose Negative (Negative); Urine Ketone 2+ (Negative); Urine Leukocyte Negative (Negative); Urine Nitrite Negative (Negative); Urine Occult Blood 4+ (Negative); Urine Urobilinogen Negative (Neg - 1+)
[2024-03-12 15:59] LABS: Urine Mucus Few
[2024-03-12 16:00] LABS: Urine Squamous Cell >30 /LPF (Few)
[2024-03-12 16:01] LABS: Amphetamines Negative (Negative); Barbiturates Negative (Negative); Benzodiazepines Negative (Negative); Buprenorphine Negative (Negative); Cocaine Negative (Negative); Marijuana Positive (Negative); Methadone Negative (Negative); Methamphetamines Negative (Negative); Opiates Positive (Negative); Phencyclidine Negative (Negative); Tricyclic Antidepressants Negative (Negative)
[2024-03-12 16:02] LABS: Urine Amorphous Seen; Urine Bacteria Few (Negative)
[2024-03-12 16:17] LABS: Fentanyl, Urine Negative (Negative)
[2024-03-12 23:15] VITALS: BP 154/90
[2024-03-13] MEDS: DILAUDID 1 MG IV ×3 (00:16→08:15)
[2024-03-13] MEDS: ZOSYN 50 IV (05:12)
[2024-03-13] MEDS: ZOFRAN 4 MG IV ×2 (07:02→15:25)
[2024-03-13 07:55] VITALS: BP 140/86
[2024-03-13] MEDS: VIBRAMYCIN 260 MG IV ×2 (07:55→21:12)
[2024-03-13] MEDS: ROCEPHIN 1000 MG IV (07:56)
[2024-03-13] MEDS: STERILE WATER FOR INJECTION 10 ML IV (07:56)
--- NOTE | 2024-03-13 09:00 | W.PN.HOSP.TC ---
Today's Communication/Plan
-
se PN
Assessment / Plan
Assessment / Plan
23yo F with PMHx of abdominal pain last summer with admission to [facility] came with same episode of abd pain with vomiting started 5 days ago. She was in ED 3 days prior to this admisison and CT abd was done. At that time it showed 2.8mm pulmonary
nodule, small amount of peritoneal free fluid with possible ruptured adnexal cyst and prominent periuterine varicosities. Mild persistent leukocytosis since 03/07/24 but withouit fevers. Appendix was not visualized.
Patient is sexually active with 1 partner and not consistent with barrier protection. No Hx of . Currently has her periods started on the day of admisison 03/12/24
Last marijuana use 1 moth ago. test neg
Marijuana urine drug screen positive, questioning recent use - patient confirmed use during past 5 days before admission
A/P:
#Abdominal pain with leukocytosis
multiple differential: ruptured ovarian cyst, PID, pelvic congestion syndrome, with non-visualized appendix - still cannot exclude appendicitis
Repeat CT abd/pelvis with IV and oral contrast
UA neg
urine for GC and Chlamydia pending
US pelvic
ROUNDING AND BACKING MACHINE OPERATOR consult: treat for PID empirically: cefriaxone/flagyl/doxy
Gen Sx consult: unlikely appendicitis, monotor clinically
Zofran/Regaln PRN
Pain mgmt
#marijuana use 2/2 anxiety
Possibly cannabis-induced vomiting syndrome
#Dehydration
IVF
#Mild AST elevation
hepatitis panel and follow LFT
#2.8 mm nodule in the left lower lobe
Advised dedicated chest CT as outpatient - patient and family verbalized understanding
DVT ppx on SCDs until further results
Full code
I have spent at least 56 min reviewing the chart, test results, communication with consultants and direct patient care
Anticipated Discharge: 24 - 48 hours
Subjective/Interval History
-
Date of Service: March 13, 2024
Objective Data
-
Labs:
Laboratory Results
03/13/24
06:00
WBC Pending
Hgb Pending
Hct Pending
Plt Count Pending
Sodium Pending
Potassium Pending
Chloride Pending
Carbon Dioxide Pending
BUN Pending
Creatinine Pending
Glucose Pending
Calcium Pending
Total Bilirubin Pending
AST Pending
ALT Pending
Alkaline Phosphatase Pending
Vital Signs:
Vital Signs
Temp Pulse Resp BP Pulse Ox
97.8 F 88 16 140/86 99
03/13/24 07:55 03/13/24 07:55 03/13/24 07:55 03/13/24 07:55 03/13/24 07:55
Review of Systems
-
History Source: Patient
All other systems: Reviewed and negative
Abdomen/GI: Reports Abdominal Pain, Nausea and Vomiting
Physical Exam
-
General: Pain
HEENT: Normocephalic and Atraumatic
Respiratory: Clear to Auscultation
GI: Soft, Nondistended, Normal Bowel Sounds and Tender (diffusely)
Musculoskeletal: No Clubbing, No Cyanosis and No Edema
Neuro: Awake, Alert, Oriented and AO x 3
Psych: Calm
[2024-03-13] MEDS: FLAGYL 500 MG 100 IV ×3 (09:18→23:20)
[2024-03-13 10:59] LABS: Blood Urea Nitrogen 7 mg/dl (7-17); Estimated Creatinine Clearance > 125 ml/min; Glucose 97 mg/dl (70-99); Sodium 138 mmol/L (135-145); eGFR > 60.00
[2024-03-13 11:00] LABS: ALT (SGPT) 22 U/L (0-35); AST (SGOT) 25 U/L (14-36); Alkaline Phosphatase 58 U/L (38-126); Calcium 8.2 mg/dl (8.4-10.2); Carbon Dioxide 22 mmol/L (22-30); Chloride 101 mmol/L (98-107); Potassium 3.4 mmol/L (3.5-5.1); Total Bilirubin 0.7 mg/dl (0.2-1.3); Total Protein 6.6 g/dl (6.3-8.2)
[2024-03-13 11:21] LABS: % Basophils 0.4 % (0-2); % Eosinophils 0.1 % (0-6); % Immature Granulocytes 0.4 % (0-0.5); % Lymphocytes 16.9 % (20.5-51.1); % Neutrophils 75.2 % (42.2-75.2); Absolute Lymphocytes 1.2 10^3/uL (1.2-3.4); Absolute Monocytes 0.5 10^3/uL (0.1-0.6); Absolute Neutrophils 5.3 10^3/uL (1.4-6.5); Hematocrit 37.3 % (37.0-47.0); Hemoglobin 13.2 g/dL (12.0-16.0); Mean Corp Hgb Conc. 35.4 g/dL (33.0-37.0); Mean Corpuscular Volume 84.8 fL (81.0-99.0); Mean Platelet Volume 9.3 fL (7.4-10.4); Nucleated Red Blood Cells % 0 %; Platelet Count 299 10^3/uL (130-400); Red Cell Dist. Width 12.3 % (11.5-14.5); White Blood Cell Count 7.1 10^3/uL (4.8-10.8)
[2024-03-13 11:22] LABS: Hepatitis B Surface Antigen Negative (Negative)
[2024-03-13 11:40] LABS: Hepatitis B Core Ab, Total Negative (Negative); Hepatitis B Surface Antibody Negative; Hepatitis C Antibody Negative (Negative)
--- NOTE | 2024-03-13 12:50 | CM ---
Met with patient at bedside with boyfriend's mother; initial assessment completed
Pharmacy verified: [email or web address] [email or web address] [place] [address]
Gena Grubbs/Primary Contact (boyfriend's mother who she lives with when not at University)
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
PLOF: reported she is independent with ambulation, stairs, and ADLs
NO SNF or Home Health history
Primary Contact will provide transport home
Plan: anticipate that patient will go to home when stable; CM will monitor for DC needs pending hospital course
[2024-03-13] MEDS: NSS 1000 IV ×2 (12:52→13:35)
[2024-03-13] MEDS: KCL 270 MEQ IV (12:52)
[2024-03-13 12:59] LABS: Hepatitis A Antibody, Total Positive (Negative)
--- NOTE | 2024-03-13 13:09 | W.PN.GYN ---
Today's Communication / Plan
-
A/P: 23yo G0 w/ leukocytosis, abdominal pain and nausea/vomiting
- Pelvic exam by Dr. Judge with no uterine tenderness and no cervical motion tenderness. Urine GCCT resulted today and negative. Low suspicion for PID- patient being empirically treated since no other source of infection is identified
- Pelvic US was normal, pain not consistent with ruptured ovarian cyst, as pain would have resolved
- Appendix still not visualized on repeat CT
- Leukocytosis improved, WBC today 7.1
Physician Note
-
S: Patient seen and examined. Reports abdominal pain is improved. She now feels just feels 'queezy.' She had an episode of vomiting this morning, but has not had one since. She gets hot when she has vomiting, but denies fevers or chills. Denies
diarrhea.
O:
VSS BP 140/86, HR 88, RR 16, Temp 97.8
General: resting comfortably in bed
Cardio: regular
Pulm: no increased work of breathing
Abd: soft, nontender to palpation, non distended
A/P: 23yo G0 w/ leukocytosis, abdominal pain and nausea/vomiting
- Pelvic exam by Dr. Judge with no uterine tenderness and no cervical motion tenderness. Urine GCCT resulted today and negative. Low suspicion for PID- patient being empirically treated since no other source of infection is identified
- Pelvic US was normal, pain not consistent with ruptured ovarian cyst, as pain would have resolved
- Appendix still not visualized on repeat CT
- Leukocytosis improved, WBC today 7.1
[2024-03-13 14:03] LABS: HIV Combo Negative (Negative)
[2024-03-13 15:12] VITALS: BP 126/76
[2024-03-13] MEDS: VISBIOME 2 CAP PO (15:24)
[2024-03-13 16:22] LABS: Hepatitis A IgM Antibody Negative (Negative)
--- NOTE | 2024-03-13 16:26 | W.PN.GS2 ---
Addendum entered and electronically signed by Eduin Jin MD 03/13/24 16:47:
Patient seen in follow-up with nurse practitioner earlier this afternoon.
Patient's boyfriend's parents are at bedside as well.
Patient is much more interactive today and appears comfortable
She states she still has abdominal pain but it is much improved, nausea intermittently but tolerating clears without exacerbation of pain
Denies any localizing pain in the lower abdomen or right lower quadrant
AFVSS
NAD, AAOx3
ABD: Soft, nondistended, minimal tenderness. No rebound rigidity or guarding, no localizing tenderness to the suprapubic or right lower quadrant.
WBC improved to 7.1 and without shift or bandemia
Assessment/plan: 23-year-old female with acute abdominal pain, nausea vomiting anorexia and leukocytosis
CT imaging without acute intra-abdominal inflammatory/infectious process identified. Appendix again unable to be visualized but there are no secondary changes suggestive infectious process in the region of where the appendix would typically be
located. No clinical signs suggestive of acute abdomen
Dietary advancement as tolerated
Signing off
Original Note:
Today's Communication / Plan
-
Advance diet as tolerated
No plans for surgery
Assessment / Plan
-
Assessment: 23-year-old female with acute abdominal pain, nausea/vomiting/anorexia and leukocytosis
Recent CT imaging with prominent right adnexal cyst measuring up to 2.5 cm and small amount of complex/hemorrhagic free fluid in the pelvis suggestive of cyst rupture. Follow-up pelvic ultrasound with likely small involuting right ovarian cyst. No
free fluid within the cul-de-sac. Bilateral ovarian blood flow normal.
Unable to visualize appendix on initial CT. No obvious GI visceral pathology within limits. Repeat CT imaging again unable to visualize the appendix but no identified inflammatory changes. No obstruction.
Improving clinically. No focal abdominal tenderness. Tolerating clears now.
AFVSS
No further leukocytosis
Plan:
Advance diet as tolerated
No operative intervention warranted at this time, continue medical management
Discussed with patient and boyfriend's parents at bedside
Surgery to follow peripherally, please call with questions or concerns
Subjective Data
-
Date of Service: March 13, 2024
Patient seen and examined at bedside with Dr. Jin. Still feels a bit 'sick' but much improved from previous. Tolerating clears. Less nausea today. No abdominal pain but feels a little uncomfortable.
Objective Data
-
Intake and Output
03/12/24 03/13/24 03/14/24
06:59 06:59 06:59
Other:
Number of approximated MODERATE 2
amounts of urine
How many times incontinent 1
MODERATE amount urine
Vital Signs
Temp Pulse Resp BP Pulse Ox
98.1 F 81 16 126/76 99
03/13/24 15:12 03/13/24 15:12 03/13/24 15:12 03/13/24 15:12 03/13/24 15:12
Lab Results
03/13/24 09:54
03/13/24 09:53
Calcium 8.2 mg/dl (8.4-10.2) L D 03/13/24 09:53
Total Bilirubin 0.7 mg/dl (0.2-1.3) 03/13/24 09:53
AST 25 U/L (14-36) 03/13/24 09:53
ALT 22 U/L (0-35) 03/13/24 09:53
Alkaline Phosphatase 58 U/L (38-126) 03/13/24 09:53
Total Protein 6.6 g/dl (6.3-8.2) D 03/13/24 09:53
Albumin 4.0 g/dl (3.5-5.0) 03/13/24 09:53
Physical Exam
-
NAD
ABD soft, nt, nd
[2024-03-13 23:00] VITALS: BP 129/73
[2024-03-14 07:00] VITALS: BP 117/75
[2024-03-14 07:51] LABS: % Basophils 0.7 % (0-2); % Eosinophils 0.5 % (0-6); % Immature Granulocytes 0.2 % (0-0.5); % Lymphocytes 28.6 % (20.5-51.1); % Monocytes 7.5 % (1.7-9.3); % Neutrophils 62.5 % (42.2-75.2); Absolute Lymphocytes 1.7 10^3/uL (1.2-3.4); Absolute Monocytes 0.4 10^3/uL (0.1-0.6); Absolute Neutrophils 3.7 10^3/uL (1.4-6.5); Hematocrit 36.6 % (37.0-47.0); Hemoglobin 13.6 g/dL (12.0-16.0); Mean Corp Hgb Conc. 37.2 g/dL (33.0-37.0); Mean Corpuscular Hgb 30.6 pg (27.0-31.0); Mean Corpuscular Volume 82.4 fL (81.0-99.0); Mean Platelet Volume 9.4 fL (7.4-10.4); Nucleated Red Blood Cells % 0 %; Platelet Count 302 10^3/uL (130-400); Red Blood Cell Count 4.44 10^6/uL (4.20-5.40); Red Cell Dist. Width 12.2 % (11.5-14.5); White Blood Cell Count 5.9 10^3/uL (4.8-10.8)
[2024-03-14 08:20] LABS: ALT (SGPT) 20 U/L (0-35); AST (SGOT) 24 U/L (14-36); Albumin 3.9 g/dl (3.5-5.0); Alkaline Phosphatase 52 U/L (38-126); Blood Urea Nitrogen 6 mg/dl (7-17); Calcium 8.8 mg/dl (8.4-10.2); Carbon Dioxide 22 mmol/L (22-30); Chloride 105 mmol/L (98-107); Estimated Creatinine Clearance > 125 ml/min; Glucose 74 mg/dl (70-99); Magnesium 1.9 mg/dl (1.6-2.3); Potassium 4.2 mmol/L (3.5-5.1); Sodium 138 mmol/L (135-145); Total Bilirubin 0.8 mg/dl (0.2-1.3); Total Protein 6.4 g/dl (6.3-8.2); eGFR > 60.00
[2024-03-14] MEDS: FLAGYL 500 MG 100 IV (09:12)
[2024-03-14] MEDS: ROCEPHIN 1000 MG IV (09:14)
[2024-03-14] MEDS: STERILE WATER FOR INJECTION 10 ML IV (09:15)
[2024-03-14] MEDS: VISBIOME 2 CAP PO (09:15)
[2024-03-14] MEDS: VIBRAMYCIN 260 MG IV (09:18)
--- NOTE | 2024-03-14 11:46 | W.PN.HOSP.TC ---
Today's Communication/Plan
-
advance diet, if tolerated - DC
Assessment / Plan
Assessment / Plan
23yo F with PMHx of self-mutilation, abdominal pain last summer with admission to [facility] came with same episode of abd pain with vomiting started 5 days ago. She was in ED 3 days prior to this admisison and CT abd was done. At that time it showed
2.8mm pulmonary nodule, small amount of peritoneal free fluid with possible ruptured adnexal cyst and prominent periuterine varicosities. Mild persistent leukocytosis since 03/07/24 but withouit fevers. Appendix was not visualized, but no clinical
signs of appendicitis as per GenSx. MODEL DRESSER recommended to complete empiric treatment for PID
Patient is sexually active with 1 partner and not consistent with barrier protection. No Hx of . Currently has her periods started on the day of admission 03/12/24
Last marijuana use 1 moth ago. test neg
Marijuana urine drug screen positive, questioning recent use - patient confirmed use during past 5 days before admission
A/P:
#Abdominal pain with leukocytosis
multiple differential: ruptured ovarian cyst, PID, pelvic congestion syndrome, with non-visualized appendix - still cannot exclude appendicitis
Repeat CT abd/pelvis with IV and oral contrast
UA neg
urine for GC and Chlamydia neg
US pelvic: without acute findings
MODEL DRESSER consult: treat for PID empirically: ceftriaxone/flagyl/doxy
Gen Sx consult: unlikely appendicitis, monitor clinically signed off
Zofran/Regaln PRN
Pain mgmt
#marijuana use 2/2 anxiety
Possibly cannabis-induced vomiting syndrome
#Dehydration
IVF
#Mild AST elevation
With PMHx of HepA
hepatitis panel neg
#2.8 mm nodule in the left lower lobe
Advised dedicated chest CT as outpatient with PCP - patient and family verbalized understanding
DVT ppx on SCDs until further results
Full code
I have spent at least 36 min reviewing the chart, test results, communication with consultants and direct patient care
Anticipated Discharge: Within 24 hours
Subjective/Interval History
-
Date of Service: March 14, 2024
Objective Data
-
Labs:
Laboratory Results
03/14/24
07:06
WBC 5.9
Hgb 13.6
Hct 36.6 L
Plt Count 302
Sodium 138
Potassium 4.2
Chloride 105
Carbon Dioxide 22
BUN 6 L
Creatinine 0.5 L
Glucose 74
Calcium 8.8
Total Bilirubin 0.8
AST 24
ALT 20
Alkaline Phosphatase 52
Vital Signs:
Vital Signs
Temp Pulse Resp BP Pulse Ox
98.0 F 87 16 117/75 100
03/14/24 07:00 03/14/24 07:00 03/14/24 07:00 03/14/24 07:00 03/14/24 07:00
I&O
03/13/24 03/14/24 03/15/24
06:59 06:59 06:59
Intake Total 590 / 590
Balance 590 / 590
Review of Systems
-
History Source: Patient
All other systems: Reviewed and negative
Physical Exam
-
General: Comfortable
HEENT: Normocephalic
GI: Soft, Nontender and Nondistended
Neuro: Awake, Alert, Oriented and AO x 3
Psych: Calm
--- NOTE | 2024-03-14 12:54 | W.DCSUMMARY ---
Discharge Summary
Discharge Data
Date of Admission: 03/12/24
Date of Discharge: 03/14/24
-
Pending Results: No
Hospital Course
23yo F with PMHx of self-mutilation, abdominal pain last summer with admission to [facility] came with same episode of abd pain with vomiting started 5 days ago. She was in ED 3 days prior to this admisison and CT abd was done. At that time it showed
2.8mm pulmonary nodule, small amount of peritoneal free fluid with possible ruptured adnexal cyst and prominent periuterine varicosities. Mild persistent leukocytosis since 03/07/24 but withouit fevers. Appendix was not visualized, but no clinical
signs of appendicitis as per [facility]. [facility] [employer] recommended to complete empiric treatment for PID
Patient is sexually active with 1 partner and not consistent with barrier protection. No Hx of . Currently has her periods started on the day of admission 03/12/24
Last marijuana use 1 moth ago. test neg
Marijuana urine drug screen positive, questioning recent use - patient confirmed use during past 5 days before admission
Pain resolved, no nausea and vomiting and tolerated diet on the day of d/c
Medically stable for d/c
I have spent at least 36 min reviewing the chart, test results, communication with consultants and direct patient care
Patient was managed for:
#Abdominal pain with leukocytosis
#marijuana use 2/2 anxiety
#Dehydration
#Mild AST elevation
#2.8 mm nodule in the left lower lobe
Discharge Plan
-
Patient Disposition: Home (Routine Discharge)
Discharge Diagnosis/Procedures: Abdominal pain
Diet: Regular
Activity: No restrictions
Activity Restrictions/Additional Instructions:
Please follow up with your BACON STRINGER for possible pelvic congestion syndrome
Stop using marijuana
Follow up with PCP for small pulmonary nodule seen on abdominal CT. Recommend dedicated chest CT
Avoid direct sunlight, calcium supplements and alcohol while on antibiotics
Referrals:
Mukund Phipps MD [Family Provider] - in two to four weeks (Chest CT for pulmonary nodule)
Prescriptions:
New
doxycycline hyclate 100 mg capsule
100 mg PO BID Qty: 26 0RF
metronidazole 500 mg tablet
500 mg PO Q8H Qty: 39 0RF
Discontinued
dicyclomine 10 mg capsule
10 mg PO QID PRN (Reason: abd cramps/pain) Qty: 20 0RF
ondansetron 4 mg tablet,disintegrating
4 mg PO Q8H PRN (Reason: nausea and vomiting) 4 Days Qty: 12 0RF
Discharge Orders:
Discharge Patient (As Directed); Ordered 03/14/24
Ordered By: Segundo Cooper
Discharge Date and Time
Print Language: JAPANESE
--- NOTE | 2024-03-14 14:10 | CM ---
CM following re: discharge planning.
Reviewed pt's chart, met with pt. pt's boyfriend parents at bedside.
Discharge order noted. Pt is aware and she stated she has no after care VN needs. Pt's boyfriend parents to transport.
D/C plan: home no needs.
[2024-03-14 15:30] VITALS: BP 115/81
== END 2024-03-14 15:39 | disposition home or self-care (01) | DRG 392 ==
LOC: 3 WEST ACU 11:42
PROVIDERS: ADMITTING PHYSICIAN Internal Medicine; CONSULT PHYSICIAN Obstetrics & Gynecology; CONSULT PHYSICIAN Surgery; EMERGENCY PHYSICIAN Emergency Medicine; FAMILY PHYSICIAN Internal Medicine
DX: R10.9 Unspecified abdominal pain (principal); F41.9 Anxiety disorder, unspecified; F12.988 Cannabis use, unspecified with other cannabis-induced disorder; E86.0 Dehydration
CPT/HCPCS: 74177; 76830; 76856; 80053; 80061; 80306; 80307; 81003; 81015; 83036; 83690; 83735; 84443; 84703; 85025; 86704; 86706; 86708; 86709; 86803; 87340; 87389; 87491; 87591; 93005; 96361; 96374; 96375; 96376; 99285; Q9967

== ENCOUNTER 2024-03-31 15:19 | Emergency (ER) | payer OTHER, SELFPAY ==
[2024-03-31 15:22] VITALS: BP 145/96
--- NOTE | 2024-03-31 15:25 | ED.GENMED ---
ED Provider Triage
<MAJOR Epperson - Last Filed: 03/31/24 15:33>
-
Patient seen by provider in Triage?: Seen in Triage
Attestation: A medical screening examination has been initiated by a qualified medical provider. Based on the assessment performed at this time, it has been determined that an emergent medical condition may exist and the patient has been informed
that further medical evaluation and possible additional diagnostic testing may be needed.
HPI: 24 yr old female presents to the ED with lower abdominal pain that started this am. Pt has had this several times in the past. Pt c/o of persistent vomiting not able to tolerate water and vomited PO zofran. Pt started with menses yesterday.
Pt was admitted in February for this.
Pt has appt with [employer] this Saturday with Dr Judge's group.
GENERAL: Alert , in no apparent distress
EYE: No visual abnormalities.
NECK: Trachea midline
ENT: No visible abnormalities.
LUNGS: No acute respiratory distress
NEUROLOGICAL: Alert and oriented
SKIN: Skin intact. No visible changes.
MUSCULOSKELETAL: Moving extremities normally
PSYCH: Normal and appropriate interaction.
This is a medical evaluation conducted in person to initiate diagnostic evaluation and provide initial therapeutics. Please see further documentation by the treating clinician.
History of Present Illness
<MAJOR Epperson - Last Filed: 03/31/24 15:33>
General
Chief Complaint: Abdominal Pain
Time Seen by Provider: 03/31/24 18:56
<Amado De Oliveira DO, Resident - Last Filed: 03/31/24 22:48>
History of Present Illness
History of Present Illness:
24-year-old female with recent admission for suspected ruptured ovarian cyst and pelvic inflammatory disease, treated with empiric antibiotics. Presents for acute onset sharp midline abdominal pain. She describes the pain as the same character as
in her previous admission. She also endorses persistent vomiting, unable to tolerate p.o. water or Zofran. She admits that the symptoms started while she was pooping, and she had just started her menstrual cycle yesterday. Patient is visibly
uncomfortable, in excruciating pain and nauseous. In emergency department patient noticed to have leukocytosis 17.0, afebrile and vitals are within normal limits.
Past History
<MAJOR Epperson - Last Filed: 03/31/24 15:33>
Past History
ED Past Medical History: Psychiatric (anxiety )
ED Past Surgical History: Other (wisdom teeth)
Social History
Tobacco: Non-smoker
Alcohol: Occasional
Drug: Marijuana
Personal: Single
Living: with family
Employment: Student
<Amado De Oliveira DO, Resident - Last Filed: 03/31/24 22:48>
Past History
ED Past Medical History: Other (PID, ruptured ovarian cyst)
Review of Systems
<Amado De Oliveira DO, Resident - Last Filed: 03/31/24 22:48>
Review of Systems
Constitutional: Reports other (Extreme intolerable pain)
Respiratory: Reports no symptoms
Cardiac: Reports no symptoms
ABD/GI: Reports abdominal pain (Diffuse abdominal pain, worse to palpation midline inferior to umbilicus), nausea, vomiting and pain
: Reports no symptoms
Phy Exam
<Amado De Oliveira DO, Resident - Last Filed: 03/31/24 22:48>
General Physical Exam
General Presentation: severe distress
General Mental: tearful
Cardiovascular Exam
Cardiovascular Exam: regular rate/rhythm, no edema and no murmur
Pulmonary Exam
Pulmonary Exam: lungs clear and no respiratory distress
Gastrointestinal Exam
Gastrointestinal Exam: soft and tender
Course
<MAJOR Epperson - Last Filed: 03/31/24 15:33>
Orders/Labs/Results
Orders:
Orders
03/31/24 15:37
Complete Blood Count/With Diff Urgent
Comprehensive Metabolic Panel Urgent
HCG, Serum Qualitative Screen Urgent
Comment: ADD ON
Lipase Urgent
03/31/24 19:09
Add On- LAB Urgent
Tests Added?: hcg qualitative
03/31/24 19:10
0.9% Sodium Chloride 1000 ml [Nss] 1,000 ml IV BOLUS
Ketorolac [Toradol] 30 mg IV NOW STA
Ondansetron Injectable [Zofran] 4 mg IV NOW STA
03/31/24 19:11
US Pelvis Only (non-obstetric) Urgent
Comment:
Reason For Exam: pain
03/31/24 19:36
Urinalysis Reflex To Culture Urgent
Date Specimen was Collected: 03/31/24
Time Specimen was Collected: 15:33
03/31/24 19:39
HYDROmorphone [Dilaudid] 0.5 mg IV NOW STA
03/31/24 20:42
HYDROmorphone [Dilaudid] 0.5 mg IV NOW STA
03/31/24 20:44
HYDROmorphone [Dilaudid] 0.5 mg .ROUTE .STK-MED ONE
03/31/24 22:30
Ketorolac [Toradol] 30 mg IV NOW STA
03/31/24 22:31
HYDROmorphone [Dilaudid] 0.25 mg IV NOW STA
Abnormal Lab Results
03/31/24 03/31/24
15:37 19:36
WBC 17.0 H 10^3/uL
(4.8-10.8)
Abs Immat Gran (auto) 0.1 H 10^3/uL
(0-0.05)
Absolute Neuts (auto) 14.7 H 10^3/uL
(1.4-6.5)
Absolute Monos (auto) 0.7 H 10^3/uL
(0.1-0.6)
Neutrophils % 86.8 H %
(42.2-75.2)
Lymphocytes % 8.4 L %
(20.5-51.1)
Glucose 152 H mg/dl
(70-99)
Albumin 5.2 H g/dl
(3.5-5.0)
Urine Ketones 3+ A
(Negative)
03/31/24 15:37
03/31/24 15:37
Vital Signs
Initial and Last Documented VS:
Initial Vital Signs
Pulse Resp BP Pulse Ox
86 18 145/96 100
03/31/24 15:22 03/31/24 15:22 03/31/24 15:22 03/31/24 15:22
Last Documented Vital Signs
Temp Pulse Resp BP Pulse Ox
97.4 F 86 15 118/72 98
03/31/24 15:25 03/31/24 21:45 03/31/24 21:45 03/31/24 21:19 03/31/24 21:45
<Amado De Oliveira DO, Resident - Last Filed: 03/31/24 22:48>
Orders/Labs/Results
Orders:
Orders
03/31/24 15:37
Complete Blood Count/With Diff Urgent
Comprehensive Metabolic Panel Urgent
HCG, Serum Qualitative Screen Urgent
Comment: ADD ON
Lipase Urgent
03/31/24 19:09
Add On- LAB Urgent
Tests Added?: hcg qualitative
03/31/24 19:10
0.9% Sodium Chloride 1000 ml [Nss] 1,000 ml IV BOLUS
Ketorolac [Toradol] 30 mg IV NOW STA
Ondansetron Injectable [Zofran] 4 mg IV NOW STA
03/31/24 19:11
US Pelvis Only (non-obstetric) Urgent
Comment:
Reason For Exam: pain
03/31/24 19:36
Urinalysis Reflex To Culture Urgent
Date Specimen was Collected: 03/31/24
Time Specimen was Collected: 15:33
03/31/24 19:39
HYDROmorphone [Dilaudid] 0.5 mg IV NOW STA
03/31/24 20:42
HYDROmorphone [Dilaudid] 0.5 mg IV NOW STA
03/31/24 20:44
HYDROmorphone [Dilaudid] 0.5 mg .ROUTE .STK-MED ONE
03/31/24 22:30
Ketorolac [Toradol] 30 mg IV NOW STA
03/31/24 22:31
HYDROmorphone [Dilaudid] 0.25 mg IV NOW STA
Abnormal Lab Results
03/31/24 03/31/24
15:37 19:36
WBC 17.0 H 10^3/uL
(4.8-10.8)
Abs Immat Gran (auto) 0.1 H 10^3/uL
(0-0.05)
Absolute Neuts (auto) 14.7 H 10^3/uL
(1.4-6.5)
Absolute Monos (auto) 0.7 H 10^3/uL
(0.1-0.6)
Neutrophils % 86.8 H %
(42.2-75.2)
Lymphocytes % 8.4 L %
(20.5-51.1)
Glucose 152 H mg/dl
(70-99)
Albumin 5.2 H g/dl
(3.5-5.0)
Urine Ketones 3+ A
(Negative)
03/31/24 15:37
03/31/24 15:37
Vital Signs
Initial and Last Documented VS:
Initial Vital Signs
Pulse Resp BP Pulse Ox
86 18 145/96 100
03/31/24 15:22 03/31/24 15:22 03/31/24 15:22 03/31/24 15:22
Last Documented Vital Signs
Temp Pulse Resp BP Pulse Ox
97.4 F 86 15 118/72 98
03/31/24 15:25 03/31/24 21:45 03/31/24 21:45 03/31/24 21:19 03/31/24 21:45
<Tawanda Robison, DO - Last Filed: 03/31/24 22:40>
Orders/Labs/Results
Orders:
Orders
03/31/24 15:37
Complete Blood Count/With Diff Urgent
Comprehensive Metabolic Panel Urgent
HCG, Serum Qualitative Screen Urgent
Comment: ADD ON
Lipase Urgent
03/31/24 19:09
Add On- LAB Urgent
Tests Added?: hcg qualitative
03/31/24 19:10
0.9% Sodium Chloride 1000 ml [Nss] 1,000 ml IV BOLUS
Ketorolac [Toradol] 30 mg IV NOW STA
Ondansetron Injectable [Zofran] 4 mg IV NOW STA
03/31/24 19:11
US Pelvis Only (non-obstetric) Urgent
Comment:
Reason For Exam: pain
03/31/24 19:36
Urinalysis Reflex To Culture Urgent
Date Specimen was Collected: 03/31/24
Time Specimen was Collected: 15:33
03/31/24 19:39
HYDROmorphone [Dilaudid] 0.5 mg IV NOW STA
03/31/24 20:42
HYDROmorphone [Dilaudid] 0.5 mg IV NOW STA
03/31/24 20:44
HYDROmorphone [Dilaudid] 0.5 mg .ROUTE .STK-MED ONE
03/31/24 22:30
Ketorolac [Toradol] 30 mg IV NOW STA
03/31/24 22:31
HYDROmorphone [Dilaudid] 0.25 mg IV NOW STA
Abnormal Lab Results
03/31/24 03/31/24
15:37 19:36
WBC 17.0 H 10^3/uL
(4.8-10.8)
Abs Immat Gran (auto) 0.1 H 10^3/uL
(0-0.05)
Absolute Neuts (auto) 14.7 H 10^3/uL
(1.4-6.5)
Absolute Monos (auto) 0.7 H 10^3/uL
(0.1-0.6)
Neutrophils % 86.8 H %
(42.2-75.2)
Lymphocytes % 8.4 L %
(20.5-51.1)
Glucose 152 H mg/dl
(70-99)
Albumin 5.2 H g/dl
(3.5-5.0)
Urine Ketones 3+ A
(Negative)
03/31/24 15:37
03/31/24 15:37
Vital Signs
Initial and Last Documented VS:
Initial Vital Signs
Pulse Resp BP Pulse Ox
86 18 145/96 100
03/31/24 15:22 03/31/24 15:22 03/31/24 15:22 03/31/24 15:22
Last Documented Vital Signs
Temp Pulse Resp BP Pulse Ox
97.4 F 86 15 118/72 98
03/31/24 15:25 03/31/24 21:45 03/31/24 21:45 03/31/24 21:19 03/31/24 21:45
<Amado De Oliveira DO, Resident - Last Filed: 03/31/24 22:48>
MDM/Problems Addressed
Differential Diagnosis Includes:
Ruptured tubo-ovarian cyst versus ovarian torsion versus appendicitis versus endometriosis versus painful menses
MDM/Problems Addressed:
#Ruptured tubo-ovarian cyst versus ovarian torsion versus endometriosis/painful menses
Recent admission for multiple ruptured ovarian cysts, treated empirically for PID has completed her course of antibiotics
Severe intractable vomiting and 10 out of 10 sharp acute onset abdominal pain
Suspicious for ruptured tubo-ovarian cyst or ovarian torsion
Recent CAT scans from previous admission were reviewed
Ordered ultrasound pelvis with Doppler of ovarian arteries
Check urine beta-hCG, urinalysis, CBC and CMP
Symptomatic management with fluids, IV Zofran and IV pain meds
Ultrasound pelvis was unremarkable
Will discharge patient with oral analgesics and encourage follow-up with gynecology
<Tawanda Robison DO - Last Filed: 03/31/24 22:40>
*Radiology
Radiology exam reviewed: radiology read reviewed
*Pulse Oximetry
Patient hypoxic: no
*Critical Care Note
Total Time (30-74mins, 75-104mins- exclusive of procedures): Not Applicable
ED Attending Note
<MAJOR Epperson - Last Filed: 03/31/24 15:33>
-
Portions of this chart may have been created with voice recognition software.� Occasional wrong word or��sound alike� substitutions may have occurred due to the inherent limitations of voice recognition software.
<Tawanda Robison DO - Last Filed: 03/31/24 22:40>
ED Attending Note
Patient seen and examined by attending physician: Yes
I performed a history and physical exam of patient and discussed management with resident, I reviewed resident's note and agree with documented findings and plan of care.: Yes
ED Attending Note:
Seen with the resident agree with assessment plan prior records noted, onset of midline lower pelvic pain started with her cycle, admitted previously with the same workup negative here I did briefly discuss the case with her outpatient nailing machine operator automatic
who saw her in consult previously currently is thought that she could have endometriosis, not confirmed obviously was not formally reconsulted, she does have an outpatient appointment in 48 to 72 hours which I encouraged him to keep
Discharge Plan
Departure
Patient Disposition: Home (Routine Discharge)
Date of Disposition: 03/31/24
Time of Disposition: 22:39
Patient with high blood pressure during this ER visit?: No
Covid-19: Not Applicable
Discharge Problem:
Pelvic pain
Instructions: Pelvic Pain ED, Endometriosis ED
Prescriptions:
No Action
doxycycline hyclate 100 mg capsule
100 mg PO BID Qty: 26 0RF
metronidazole 500 mg tablet
500 mg PO Q8H Qty: 39 0RF
Referrals:
Catherine Mackay DO [Family Provider] -
Interventions
Interventions:
*Risk Screen - Suicide Last Done: 03/31/24 15:22
*General Assessment Last Done: 03/31/24 15:22
*Neglect/Abuse Screening Last Done: 03/31/24 15:22
ED- Fall Risk Assessment Last Done: 03/31/24 20:30
*ED COVID-19 Vaccine History Last Done: 03/31/24 15:22
QR-Fkykdh-Xezsvzwmia Assessment Last Done: 03/31/24 20:30
Discharge Date and Time
Print Language: PRYDEINIG
[2024-03-31 15:44] LABS: % Basophils 0.2 % (0-2); % Immature Granulocytes 0.5 % (0-0.5); % Lymphocytes 8.4 % (20.5-51.1); % Monocytes 4.1 % (1.7-9.3); % Neutrophils 86.8 % (42.2-75.2); Absolute Immature Granulocytes 0.1 10^3/uL (0-0.05); Absolute Lymphocytes 1.4 10^3/uL (1.2-3.4); Absolute Monocytes 0.7 10^3/uL (0.1-0.6); Absolute Neutrophils 14.7 10^3/uL (1.4-6.5); Hematocrit 42.2 % (37.0-47.0); Hemoglobin 14.7 g/dL (12.0-16.0); Mean Corp Hgb Conc. 34.8 g/dL (33.0-37.0); Mean Corpuscular Volume 86.1 fL (81.0-99.0); Mean Platelet Volume 9.5 fL (7.4-10.4); Nucleated Red Blood Cells % 0 %; Platelet Count 283 10^3/uL (130-400); Red Cell Dist. Width 12.9 % (11.5-14.5)
[2024-03-31 15:58] LABS: ALT (SGPT) 27 U/L (0-35); AST (SGOT) 36 U/L (14-36); Albumin 5.2 g/dl (3.5-5.0); Alkaline Phosphatase 66 U/L (38-126); Blood Urea Nitrogen 15 mg/dl (7-17); Calcium 9.9 mg/dl (8.4-10.2); Carbon Dioxide 23 mmol/L (22-30); Chloride 103 mmol/L (98-107); Glucose 152 mg/dl (70-99); Lipase 95 U/L (23-300); Potassium 3.8 mmol/L (3.5-5.1); Sodium 140 mmol/L (135-145); Total Bilirubin 0.3 mg/dl (0.2-1.3); eGFR > 60.00
[2024-03-31 19:01] VITALS: BP 156/90
[2024-03-31] MEDS: ZOFRAN 4 MG IV (19:30)
[2024-03-31] MEDS: TORADOL 30 MG IV (19:30)
[2024-03-31] MEDS: NSS 1000 IV (19:35)
[2024-03-31 19:43] LABS: Urine Albumin Trace (Neg - Trace); Urine Bilirubin Negative (Negative); Urine Character Clear (Clear); Urine Color Yellow; Urine Glucose Negative (Negative); Urine Ketone 3+ (Negative); Urine Leukocyte Negative (Negative); Urine Nitrite Negative (Negative); Urine Occult Blood Negative (Negative); Urine Specific Gravity 1.025 (<1.030); Urine Urobilinogen Negative (Neg - 1+)
[2024-03-31 19:51] LABS: HCG, Serum Qualitative Screen Negative
[2024-03-31] MEDS: DILAUDID 0.5 MG IV ×2 (19:56→20:46)
[2024-03-31 21:19] VITALS: BP 118/72
[2024-03-31] MEDS: DILAUDID 0.25 MG IV (22:53)
== END 2024-03-31 23:00 | disposition home or self-care (01) ==
LOC: EMR 15:19
PROVIDERS: Nurse Practitioner; EMERGENCY PHYSICIAN Emergency Medicine; FAMILY PHYSICIAN Internal Medicine
DX: R10.2 Pelvic and perineal pain (principal); R11.10 Vomiting, unspecified
CPT/HCPCS: 96374; 96375; 96376; 96361; 99284; 76856; 80053; 81003; 83690; 84703; 85025

== ENCOUNTER 2024-05-19 15:13 | Emergency (ER) | payer OTHER, SELFPAY ==
[2024-05-19 15:17] VITALS: BP 172/125
[2024-05-19] MEDS: ZOFRAN ODT (ORALLY DISINTEGRATING) 4 MG PO (15:27)
[2024-05-19] MEDS: TORADOL 30 MG IM (15:27)
--- NOTE | 2024-05-19 15:31 | ED.GENMED ---
ED Provider Triage
<Phani Johnson PA-C - Last Filed: 05/19/24 15:32>
-
Patient seen by provider in Triage?: Seen in Triage
Attestation: A medical screening examination has been initiated by a qualified medical provider. Based on the assessment performed at this time, it has been determined that an emergent medical condition may exist and the patient has been informed
that further medical evaluation and possible additional diagnostic testing may be needed.
HPI: 24-year-old female presents the emergency department writhing in pain and screaming, complaining of lower abdominal pain. She apparently has a lengthy history with acute on chronic pain complaints. Was seen in [facility] within the
past several days, reportedly underwent a CT and ultrasound that were unremarkable and was treated with Dilaudid with rapid improvement in symptoms. Was doing well for the past 24 hours but returned with pain today. Has been presumptively
diagnosed with endometriosis however has never undergone a laparoscopy. Not currently on her menstrual cycle
GENERAL: Screaming, moaning in pain, unable to sit still
EYE: No visual abnormalities.
NECK: Trachea midline
ENT: No visible abnormalities.
LUNGS: No acute respiratory distress
NEUROLOGICAL: Alert and oriented
SKIN: Skin intact. No visible changes.
MUSCULOSKELETAL: Moving extremities normally
PSYCH: Normal and appropriate interaction.
This is a medical evaluation conducted in person to initiate diagnostic evaluation and provide initial therapeutics. Please see further documentation by the treating clinician.
History of Present Illness
<Phani Johnson PA-C - Last Filed: 05/19/24 15:32>
General
Chief Complaint: Abdominal Symptoms
Time Seen by Provider: 05/19/24 17:14
<Elliot Meraz MD - Last Filed: 05/19/24 22:33>
General
Source: patient
Exam Limitations: none
Nursing documentation reviewed up to this point in time: agreed with
History of Present Illness
History of Present Illness:
Patient recently diagnosed with endometriosis and started on control pills by her ULTRASOUND MANAGER physician, Dr. Judge, presents to ED secondary to continual abdominal pain with vomiting. Denies fever or chills. Denies diarrhea. Denies trauma.
Denies difficulty urination. Patient was recently evaluated at [facility] where she allegedly received multiple imaging studies (Pelvic US and CT abd/pel - normal). Denies recent change in diet. Patient unfortunately has been having
intermittent episodes for some time now, and requiring multiple ED visits and admissions for pain control.
Past History
<Phani Johnson PA-C - Last Filed: 05/19/24 15:32>
Past History
ED Past Medical History: Psychiatric (anxiety ) and Other (PID, ruptured ovarian cyst)
ED Past Surgical History: Other (wisdom teeth)
Social History
Tobacco: Non-smoker
Alcohol: Occasional
Drug: Marijuana
Personal: Single
Living: with family
Employment: Student
Review of Systems
<Elliot Meraz MD - Last Filed: 05/19/24 22:33>
Review of Systems
Allergies reviewed?: Yes
All Other Systems: ROS reviewed and negative except as documented in HPI and ROS
Constitutional: Reports no symptoms; Denies fever or chills
Respiratory: Reports no symptoms
Cardiac: Reports no symptoms
ABD/GI: Reports abdominal pain, nausea and vomiting; Denies diarrhea
Musculoskeletal: Reports no symptoms
Skin: Reports no symptoms
Neurological: Reports no symptoms
Phy Exam
<Elliot Meraz MD - Last Filed: 05/19/24 22:33>
Physical Exam
Physical Exam:
Physical Exam
General: mild painful distress, not acutely ill. afebrile
Head: nc/at. eomi
Neck: supple. normal range of motion.
Heart: s1/s2 regular rate and rhythm, no murmur. equal radial pulses.
Lungs: no acute respiratory distress. clear bilaterally
Abdomen: normal bowel sounds. no distention. mild diffuse tenderness to palpation
Neuro: alert and oriented x 3. no focal neurological deficits
Skin: no rash
Psychiatric: well kept. interactive and cooperative
Extremities: no edema. no calf tenderness.
Sepsis
<Phani Johnson PA-C - Last Filed: 05/19/24 15:32>
Sepsis Screen
Sepsis Screen: Possible Sepsis
Date: 05/19/24
Time: 15:31
<Elliot Meraz MD - Last Filed: 05/19/24 22:33>
Sepsis Screening
Sepsis Assessment: Sepsis Ruled Out
Sepsis Screen
Sepsis Screen: Sepsis Ruled Out
Date: 05/19/24
Time: 22:33
Course
<Phani Johnson PA-C - Last Filed: 05/19/24 15:32>
Orders/Labs/Results
Orders:
Orders
05/19/24 15:23
Ketorolac [Toradol] 30 mg IM NOW STA
Ondansetron Orally Disint [Zofran Odt (Orally Disintegrating)] 4 mg PO NOW STA
Oxycodone [Roxicodone] 5 mg PO NOW STA
Test Result ONCE
05/19/24 15:27
Complete Blood Count/With Diff Urgent
Comprehensive Metabolic Panel Urgent
HCG, Serum Qualitative Screen Urgent
05/19/24 15:57
EKG [Electrocardiogram (*1)] Urgent
Reason for Study: Chest Pain
EKG- Treatment ONCE
05/19/24 17:24
0.9% Sodium Chloride 500 ml [Nss] 500 ml IV BOLUS
Lorazepam [Ativan] 1 mg IV NOW STA
Pantoprazole [Protonix IV] 40 mg IV NOW STA
05/19/24 17:25
Electrocardiogram (*1) Urgent
Reason for Study: QTc Monitoring
EKG- Treatment ONCE
05/19/24 17:29
Prochlorperazine [Compazine] 10 mg IV NOW STA
05/19/24 18:27
Haloperidol Lactate [Haldol] 2 mg IV NOW STA
Ketorolac [Toradol] 15 mg IV NOW STA
05/19/24 19:09
Amitriptyline [Elavil] 10 mg PO NOW STA
05/19/24 19:20
HYDROmorphone [Dilaudid] 0.5 mg IV NOW STA
05/19/24 21:10
HYDROmorphone [Dilaudid] 2 mg PO NOW STA
Abnormal Lab Results
05/19/24
15:27
WBC 12.1 H 10^3/uL
(4.8-10.8)
Absolute Neuts (auto) 8.7 H 10^3/uL
(1.4-6.5)
Carbon Dioxide 21 L mmol/L
(22-30)
Glucose 122 H mg/dl
(70-99)
AST 67 H U/L
(14-36)
ALT 63 H U/L
(0-35)
Total Protein 8.7 H g/dl
(6.3-8.2)
Albumin 5.1 H g/dl
(3.5-5.0)
05/19/24 15:27
05/19/24 15:27
Vital Signs
Initial and Last Documented VS:
Initial Vital Signs
Pulse Resp BP Pulse Ox
75 22 172/125 99
05/19/24 15:17 05/19/24 15:17 05/19/24 15:17 05/19/24 15:17
Last Documented Vital Signs
Temp Pulse Resp BP Pulse Ox
98.7 F 73 18 156/100 99
05/19/24 21:22 05/19/24 18:52 05/19/24 18:52 05/19/24 18:52 05/19/24 15:17
<Elliot Meraz MD - Last Filed: 05/19/24 22:33>
Orders/Labs/Results
Orders:
Orders
05/19/24 15:23
Ketorolac [Toradol] 30 mg IM NOW STA
Ondansetron Orally Disint [Zofran Odt (Orally Disintegrating)] 4 mg PO NOW STA
Oxycodone [Roxicodone] 5 mg PO NOW STA
Test Result ONCE
05/19/24 15:27
Complete Blood Count/With Diff Urgent
Comprehensive Metabolic Panel Urgent
HCG, Serum Qualitative Screen Urgent
05/19/24 15:57
EKG [Electrocardiogram (*1)] Urgent
Reason for Study: Chest Pain
EKG- Treatment ONCE
05/19/24 17:24
0.9% Sodium Chloride 500 ml [Nss] 500 ml IV BOLUS
Lorazepam [Ativan] 1 mg IV NOW STA
Pantoprazole [Protonix IV] 40 mg IV NOW STA
05/19/24 17:25
Electrocardiogram (*1) Urgent
Reason for Study: QTc Monitoring
EKG- Treatment ONCE
05/19/24 17:29
Prochlorperazine [Compazine] 10 mg IV NOW STA
05/19/24 18:27
Haloperidol Lactate [Haldol] 2 mg IV NOW STA
Ketorolac [Toradol] 15 mg IV NOW STA
05/19/24 19:09
Amitriptyline [Elavil] 10 mg PO NOW STA
05/19/24 19:20
HYDROmorphone [Dilaudid] 0.5 mg IV NOW STA
05/19/24 21:10
HYDROmorphone [Dilaudid] 2 mg PO NOW STA
Abnormal Lab Results
05/19/24
15:27
WBC 12.1 H 10^3/uL
(4.8-10.8)
Absolute Neuts (auto) 8.7 H 10^3/uL
(1.4-6.5)
Carbon Dioxide 21 L mmol/L
(22-30)
Glucose 122 H mg/dl
(70-99)
AST 67 H U/L
(14-36)
ALT 63 H U/L
(0-35)
Total Protein 8.7 H g/dl
(6.3-8.2)
Albumin 5.1 H g/dl
(3.5-5.0)
05/19/24 15:27
05/19/24 15:27
Vital Signs
Initial and Last Documented VS:
Initial Vital Signs
Pulse Resp BP Pulse Ox
75 22 172/125 99
05/19/24 15:17 05/19/24 15:17 05/19/24 15:17 05/19/24 15:17
Last Documented Vital Signs
Temp Pulse Resp BP Pulse Ox
98.7 F 73 18 156/100 99
05/19/24 21:22 05/19/24 18:52 05/19/24 18:52 05/19/24 18:52 05/19/24 15:17
<Elliot Meraz MD - Last Filed: 05/19/24 22:33>
MDM/Problems Addressed
MDM/Problems Addressed:
Patient reports improvement in symptoms after treatment. Patient without any further vomiting episodes during observation, and remains hemodynamically stable. Discussed with patient and caregivers at bedside, regarding patient's diagnosis, which
unfortunately remains unclear at this time. As patient was seen in ED yesterday with normal pelvic ultrasound and CT scan, with similar symptoms, do not feel that repeat imaging studies are indicated at this time. As patient is currently without
primary care physician, recommended that patient follow-up with [facility] residency clinic for continual evaluation and treatment. In addition, caregivers state that they are looking into having the patient to be evaluated at another
hospital, i.e. integrative medicine, to receive different perspective regarding her condition. In the meantime, patient will be treated symptomatically pain medication short-term, via tramadol/Toradol.
<Elliot Meraz MD - Last Filed: 05/19/24 22:33>
*Critical Care Note
Total Time (30-74mins, 75-104mins- exclusive of procedures): Not Applicable
ED Attending Note
<Phani Johnson PA-C - Last Filed: 05/19/24 15:32>
-
Portions of this chart may have been created with voice recognition software.� Occasional wrong word or��sound alike� substitutions may have occurred due to the inherent limitations of voice recognition software.
Discharge Plan
Departure
Patient Disposition: Home (Routine Discharge)
Date of Disposition: 05/19/24
Time of Disposition: 20:53
Patient with high blood pressure during this ER visit?: Yes
Condition: Fair
Discharge Problem:
Abdominal pain
Instructions: Abdominal Pain
Prescriptions:
New
tramadol 50 mg tablet
50 mg PO Q8H PRN (Reason: Pain) Qty: 14 0RF
ketorolac 10 mg tablet
10 mg PO Q8H PRN (Reason: Pain) Qty: 14 0RF
Rx Instructions:
maximum total duration of 5 days from all oral, intranasal, or parenteral formulations
No Action
doxycycline hyclate 100 mg capsule
100 mg PO BID Qty: 26 0RF
metronidazole 500 mg tablet
500 mg PO Q8H Qty: 39 0RF
ibuprofen 600 mg tablet
600 mg PO Q8H PRN (Reason: Pain) Qty: 30 0RF
ondansetron 4 mg tablet,disintegrating
4 mg PO Q8H PRN (Reason: nausea and vomiting) Qty: 20 0RF
oxycodone-acetaminophen [Percocet] 5-325 mg tablet
1 tab PO Q6HPRN PRN (Reason: pain) Qty: 10 0RF
Referrals:
[facility] [Outside]
Mariah Judge, DO [Family Provider] -
Activity Restrictions/Additional Instructions:
As discussed, please follow-up with referred medical clinic for continual evaluation and treatment. Your prescriptions have been sent electronically to [facility] pharmacy in [place].
Interventions
Interventions:
*Risk Screen - Suicide Last Done: 05/19/24 18:00
*General Assessment Last Done: 05/19/24 17:59
*Neglect/Abuse Screening Last Done: 05/19/24 17:59
ED- Fall Risk Assessment Last Done: 05/19/24 18:00
*ED COVID-19 Vaccine History Last Done: 05/19/24 17:58
*Nursing Disposition Last Done: 05/19/24 21:23
AQ-Yyjudz-Skzikovwwz Assessment Last Done: 05/19/24 18:01
Discharge Date and Time
Discharge Date/Time: 05/19/24 21:23
Print Language: SYRIAC
[2024-05-19 15:37] LABS: % Basophils 0.2 % (0-2); % Immature Granulocytes 0.2 % (0-0.5); % Lymphocytes 22.5 % (20.5-51.1); % Monocytes 5.3 % (1.7-9.3); % Neutrophils 71.8 % (42.2-75.2); Absolute Lymphocytes 2.7 10^3/uL (1.2-3.4); Absolute Monocytes 0.6 10^3/uL (0.1-0.6); Absolute Neutrophils 8.7 10^3/uL (1.4-6.5); Hematocrit 42.1 % (37.0-47.0); Hemoglobin 15.4 g/dL (12.0-16.0); Mean Corp Hgb Conc. 36.6 g/dL (33.0-37.0); Mean Corpuscular Hgb 30.8 pg (27.0-31.0); Mean Corpuscular Volume 84.2 fL (81.0-99.0); Mean Platelet Volume 9.4 fL (7.4-10.4); Nucleated Red Blood Cells % 0 %; Platelet Count 305 10^3/uL (130-400); Red Cell Dist. Width 11.9 % (11.5-14.5); White Blood Cell Count 12.1 10^3/uL (4.8-10.8)
[2024-05-19 15:50] LABS: HCG, Serum Qualitative Screen Negative
[2024-05-19 15:54] LABS: ALT (SGPT) 63 U/L (0-35); AST (SGOT) 67 U/L (14-36); Albumin 5.1 g/dl (3.5-5.0); Alkaline Phosphatase 74 U/L (38-126); Blood Urea Nitrogen 16 mg/dl (7-17); Calcium 8.9 mg/dl (8.4-10.2); Carbon Dioxide 21 mmol/L (22-30); Chloride 101 mmol/L (98-107); Glucose 122 mg/dl (70-99); Potassium 3.5 mmol/L (3.5-5.1); Sodium 138 mmol/L (135-145); Total Bilirubin 0.8 mg/dl (0.2-1.3); Total Protein 8.7 g/dl (6.3-8.2); eGFR > 60.00
[2024-05-19] MEDS: ROXICODONE 5 MG PO (16:03)
--- NOTE | 2024-05-19 16:05 | EDRN ---
Patient with c/o sudden onset of sharp pain in her chest. EKG done. Octavio Johnson PA-C notified. Patient stated that she would try taking the Oxycodone ordered earlier for the pain. Patient medicated with Oxycodone 5mg PO.
--- NOTE | 2024-05-19 16:15 | EDRN ---
Patient given a warm blanket. Patient stated that she just vomited her Oxycodone.
--- NOTE | 2024-05-19 16:48 | EDRN ---
This RN heard a loud bang. Patient found lying on the floor. Father stated that the patient rolled off the chair. Patient rocking back and forth on the floor. Patient continuing to moan and scream.
[2024-05-19] MEDS: ATIVAN 1 MG IV (17:40)
[2024-05-19] MEDS: PROTONIX IV 40 MG IV (17:41)
[2024-05-19] MEDS: COMPAZINE 10 MG IV (17:41)
[2024-05-19] MEDS: NSS 500 IV (17:41)
[2024-05-19] MEDS: HALDOL 2 MG IV (18:47)
[2024-05-19] MEDS: TORADOL 15 MG IV (18:48)
[2024-05-19 18:52] VITALS: BP 156/100
[2024-05-19] MEDS: DILAUDID 0.5 MG IV (19:23)
[2024-05-19] MEDS: ELAVIL 10 MG PO (19:40)
[2024-05-19] MEDS: DILAUDID 2 MG PO (21:15)
== END 2024-05-19 21:23 | disposition home or self-care (01) ==
LOC: EMR 15:13
PROVIDERS: Physician Assistant; EMERGENCY PHYSICIAN Emergency Medicine; FAMILY PHYSICIAN Obstetrics & Gynecology
DX: R10.30 Lower abdominal pain, unspecified (principal); G89.29 Other chronic pain; F41.9 Anxiety disorder, unspecified
CPT/HCPCS: 96374; 96375; 96372; 99284; 80053; 84703; 85025; 93005

== ENCOUNTER 2024-08-21 15:04 | Emergency (ER) | payer OTHER, SELFPAY ==
[2024-08-21 15:23] VITALS: BP 162/118
== END 2024-08-21 15:47 | disposition left against medical advice (07) ==
LOC: EMR 15:04
PROVIDERS: PRIMARYCARE PHYSICIAN Family Medicine
DX: R10.2 Pelvic and perineal pain (principal); N80.9 Endometriosis, unspecified; Z53.21 Procedure and treatment not carried out due to patient leaving prior to being seen by health care provider
CPT/HCPCS: 99283

== ENCOUNTER 2024-08-22 03:25 | Emergency (ER) | payer OTHER, SELFPAY ==
[2024-08-22] VITALS (8 sets, daily range): BP systolic 130–198; BP diastolic 89–159; BMI 17.3
[2024-08-22] MEDS: TORADOL 30 MG IV (05:19)
[2024-08-22] MEDS: NSS 1000 IV (05:22)
[2024-08-22 05:25] LABS: % Basophils 0.2 % (0-2); % Immature Granulocytes 0.3 % (0-0.5); % Lymphocytes 8.4 % (20.5-51.1); % Monocytes 8.1 % (1.7-9.3); Absolute Lymphocytes 1.2 10^3/uL (1.2-3.4); Absolute Monocytes 1.2 10^3/uL (0.1-0.6); Absolute Neutrophils 11.9 10^3/uL (1.4-6.5); Hematocrit 44.4 % (37.0-47.0); Hemoglobin 16.4 g/dL (12.0-16.0); Mean Corp Hgb Conc. 36.9 g/dL (33.0-37.0); Mean Corpuscular Hgb 30.4 pg (27.0-31.0); Mean Corpuscular Volume 82.2 fL (81.0-99.0); Nucleated Red Blood Cells % 0 %; Platelet Count 362 10^3/uL (130-400); White Blood Cell Count 14.3 10^3/uL (4.8-10.8)
[2024-08-22 05:39] LABS: HCG, Serum Qualitative Screen Negative; Lactic Acid 1.2 mmol/L (0.7-2.0)
[2024-08-22 05:43] LABS: ALT (SGPT) 51 U/L (0-35); AST (SGOT) 47 U/L (14-36); Albumin 5.3 g/dl (3.5-5.0); Alkaline Phosphatase 67 U/L (38-126); Blood Urea Nitrogen 13 mg/dl (7-17); Carbon Dioxide 17 mmol/L (22-30); Chloride 105 mmol/L (98-107); Estimated Creatinine Clearance 78 ml/min; Glucose 116 mg/dl (70-99); Potassium 3.8 mmol/L (3.5-5.1); Sodium 141 mmol/L (135-145); Total Bilirubin 0.9 mg/dl (0.2-1.3); Total Protein 8.5 g/dl (6.3-8.2); eGFR > 60.00
--- NOTE | 2024-08-22 06:31 | ED.GENMED ---
History of Present Illness
General
Chief Complaint: Abdominal Pain
Source: patient and family (Mom)
Time Seen by Provider: 08/22/24 06:02
History of Present Illness
History of Present Illness:
24-year-old female presents to the emergency room complaining of abdominal pain. Patient has been suffering with episodic abdominal pain for a couple years. She has had multiple visits to other emergency room send this emergency room. She has
been admitted here February 2024. Patient has had multiple imaging studies including several CAT scans at outside institutions and 2 CTs of the abdomen and pelvis performed here. Is also had multiple pelvic ultrasounds. Most recently the patient
was at [facility] yesterday. She had ultrasounds as well as CTs of the chest abdomen and pelvis. The results of the studies were obtained through Dr. Rivera's epic everywhere account. Essentially the imaging was negative except for some
questionable gallbladder wall thickening at 3 mm. Patient's labs are consistent with previous measurements here, at [facility] as well. Mom feels the patient's pain episodes may correlate with her menstrual cycle. Patient denies current marijuana
use.
Past History
Past History
ED Past Medical History: Psychiatric (anxiety ) and Other (PID, ruptured ovarian cyst)
ED Past Surgical History: Other (wisdom teeth)
Social History
Tobacco: Non-smoker
Alcohol: Occasional
Drug: Marijuana
Personal: Single
Living: with family
Employment: Student
Phy Exam
Physical Exam
Physical Exam:
General: Awake, Alert, Oriented X3. Patient appears uncomfortable, tearful and rocking
Vitals: unremarkable
Head: Atraumatic
Eyes: Pupils equal, EOMI
Throat: Airway intact, no exudates
Neck: Trachea midline
Lungs: Clear and equal b/l
Heart: Regular rate, no murmurs
Abd: Soft, indicates pain everywhere but fortunately no rebound tenderness is noted, No pulsatile mass
Neuro: Nonfocal
Skin: Warm, dry, no rash
Extremities: pulses equal b/l, no edema
Course
Orders/Labs/Results
Orders:
Orders
08/22/24 05:11
0.9% Sodium Chloride 1000 ml [Nss] 1,000 ml IV BOLUS
Ketorolac [Toradol] 30 mg IV NOW STA
Test Result ONCE
08/22/24 05:17
Complete Blood Count/With Diff Urgent
Comprehensive Metabolic Panel Urgent
HCG, Serum Qualitative Screen Urgent
Lactic Acid Urgent
08/22/24 06:26
Diphenhydramine [Benadryl] 25 mg IV NOW STA
droPERidol [Inapsine] 0.625 mg IV NOW STA
08/22/24 06:30
HYDROmorphone [Dilaudid] 0.5 mg IV NOW STA
08/22/24 06:48
Electrocardiogram (*1) Urgent
Reason for Study: QTc Monitoring
EKG- Treatment ONCE
08/22/24 06:51
Urinalysis Reflex To Culture Urgent
Date Specimen was Collected: 08/22/24
Time Specimen was Collected: 06:35
Urine Drug Abuse Screen Urgent
Date Specimen was Collected: 08/22/24
Time Specimen was Collected: 06:35
Urine Microscopic Reflex Cult Urgent
08/22/24 08:04
droPERidol [Inapsine] 0.625 mg IV NOW STA
Abnormal Lab Results
08/22/24 08/22/24
05:17 06:51
WBC 14.3 H 10^3/uL
(4.8-10.8)
Hgb 16.4 H g/dL
(12.0-16.0)
Absolute Neuts (auto) 11.9 H 10^3/uL
(1.4-6.5)
Absolute Monos (auto) 1.2 H 10^3/uL
(0.1-0.6)
Neutrophils % 83.0 H %
(42.2-75.2)
Lymphocytes % 8.4 L %
(20.5-51.1)
Carbon Dioxide 17 L mmol/L
(22-30)
Glucose 116 H mg/dl
(70-99)
AST 47 H U/L
(14-36)
ALT 51 H U/L
(0-35)
Total Protein 8.5 H g/dl
(6.3-8.2)
Albumin 5.3 H g/dl
(3.5-5.0)
Urine Ketones 3+ A
(Negative)
Ur Occult Blood Reflex 4+ A
(Negative)
Urine RBC 30-40 A /HPF
(0-2)
Urine Bacteria (Reflex) Few A
(Negative)
Urine Albumin (Reflex) 3+ A
(Neg - Trace)
U Marijuana (THC) Screen Positive H
(Negative)
08/22/24 05:17
08/22/24 05:17
Vital Signs
Initial and Last Documented VS:
Initial Vital Signs
Pulse Resp BP Pulse Ox
81 20 171/110 100
08/22/24 03:32 08/22/24 03:32 08/22/24 03:32 08/22/24 03:32
Last Documented Vital Signs
Temp Pulse Resp BP Pulse Ox
98.5 F 74 16 130/89 100
08/22/24 07:24 08/22/24 10:45 08/22/24 10:45 08/22/24 07:24 08/22/24 10:45
MDM/Problems Addressed
Differential Diagnosis Includes:
Cyclic vomiting syndrome, endometriosis, irritable bowel syndrome, cannabis hyperemesis
MDM/Problems Addressed:
Patient presents with nausea vomiting and abdominal pain. Patient has been seen here for the symptoms a couple times and has had an admission where she was seen by EQUIPMENT INSTALLER, GI and general surgery. No clear cause of the abdominal pain was
identified. Patient has continued to have pain and has been seen at other hospitals most recently at [facility] where she had a CT of the chest abdomen pelvis as well as ultrasound. Patient was treated here with droperidol, Zofran, IV
fluid and analgesia. She ultimately felt better. She continued to feel anxious. She was anxious to be discharged because of her level of anxiety. Of note the patient denied use of marijuana however her UDS was positive for marijuana. I
discussed this with her with her father outside of the room. She did endorse using marijuana some. I stressed the need to abstain from marijuana. I certainly cannot say that her symptoms are related to marijuana use but until she eliminates a
completely it will always be part of the differential.
*Pulse Oximetry
Patient hypoxic: no
*EKG
Interpreted by ED Provider?: Yes
Rate: normal
Rhythm: sinus
[place]: normal axis
Interval: normal interval
QRS Pattern: normal QRS
Ischemia: no ischemia
*Auto Customize Painter Interpretation
Rate: normal
Interpretation: normal
Heart Rate: 88
Rhythm: sinus
*Critical Care Note
Total Time (30-74mins, 75-104mins- exclusive of procedures): Not Applicable
ED Attending Note
-
Portions of this chart may have been created with voice recognition software.� Occasional wrong word or��sound alike� substitutions may have occurred due to the inherent limitations of voice recognition software.
Discharge Plan
Departure
Patient Disposition: Home (Routine Discharge)
Date of Disposition: 08/22/24
Time of Disposition: 11:24
Patient with high blood pressure during this ER visit?: No
Condition: Good
Discharge Problem:
Abdominal pain, Vomiting
Instructions: Nausea and Vomiting, Adult (DC), Abdominal Pain
Prescriptions:
New
dicyclomine 20 mg tablet
20 mg PO QID PRN (Reason: abdominal pain) Qty: 30 0RF
pantoprazole [Protonix] 40 mg tablet,delayed release (DR/EC)
40 mg PO DAILY 28 Days Qty: 28 0RF
No Action
ibuprofen 600 mg tablet
600 mg PO Q8H PRN (Reason: Pain) Qty: 30 0RF
Referrals:
Benson Zaidi MD [Active] -
Phani Velázquez [Family Provider] -
Interventions
Interventions:
*Risk Screen - Suicide Last Done: 08/22/24 03:32
*General Assessment Last Done: 08/22/24 03:32
*Neglect/Abuse Screening Last Done: 08/22/24 07:24
*ED- Fall Risk Assessment Last Done: 08/22/24 07:24
*ED COVID-19 Vaccine History Last Done: 08/22/24 03:32
*Nursing Disposition Last Done: 08/22/24 11:43
ZY-Rrexzs-Ypwedqrubn Assessment Last Done: 08/22/24 07:24
Discharge Date and Time
Discharge Date/Time: 08/22/24 11:57
Print Language: AZERI
[2024-08-22] MEDS: INAPSINE 0.625 MG IV ×2 (06:38→08:07)
[2024-08-22] MEDS: DILAUDID 0.5 MG IV (06:40)
[2024-08-22] MEDS: BENADRYL 25 MG IV (06:40)
[2024-08-22 07:23] LABS: Urine Albumin 3+ (Neg - Trace); Urine Bilirubin Negative (Negative); Urine Character Clear (Clear); Urine Color Yellow; Urine Glucose Negative (Negative); Urine Ketone 3+ (Negative); Urine Leukocyte Negative (Negative); Urine Nitrite Negative (Negative); Urine Occult Blood 4+ (Negative); Urine Urobilinogen Negative (Neg - 1+)
[2024-08-22 07:38] LABS: Amphetamines Negative (Negative); Barbiturates Negative (Negative); Benzodiazepines Negative (Negative); Buprenorphine Negative (Negative); Cocaine Negative (Negative); Methadone Negative (Negative); Methamphetamines Negative (Negative); Opiates Negative (Negative)
[2024-08-22 07:39] LABS: Marijuana Positive (Negative); Phencyclidine Negative (Negative); Tricyclic Antidepressants Negative (Negative)
[2024-08-22 07:48] LABS: Urine Bacteria Few (Negative); Urine Red Blood Cell 30-40 /HPF (0-2)
== END 2024-08-22 11:57 | disposition home or self-care (01) ==
LOC: EMR 03:25
PROVIDERS: Emergency Medicine; EMERGENCY PHYSICIAN Emergency Medicine; FAMILY PHYSICIAN Psychologist
DX: R10.9 Unspecified abdominal pain (principal); R11.2 Nausea with vomiting, unspecified; F41.9 Anxiety disorder, unspecified; N73.9 Female pelvic inflammatory disease, unspecified
CPT/HCPCS: 99283; 96374; 96375; 96376; 96361; 80053; 80306; 81003; 81015; 83605; 84703; 85025; 93005; J1790

== ENCOUNTER 2024-08-24 08:18 | Inpatient (IN) | payer OTHER, SELFPAY ==
[2024-08-22 18:03] VITALS: BP 176/107
[2024-08-22 19:59] VITALS: BMI 18.6
[2024-08-22 20:13] LABS: Lactic Acid 1.7 mmol/L (0.7-2.0)
[2024-08-22 20:30] LABS: Hematocrit 39.5 % (37.0-47.0); Hemoglobin 14.6 g/dL (12.0-16.0); Mean Corpuscular Hgb 30.5 pg (27.0-31.0); Mean Corpuscular Volume 82.6 fL (81.0-99.0); Red Blood Cell Count 4.78 10^6/uL (4.20-5.40); Red Cell Dist. Width 12.1 % (11.5-14.5); White Blood Cell Count 12.7 10^3/uL (4.8-10.8)
[2024-08-22 20:31] LABS: % Basophils 0.2 % (0-2); % Immature Granulocytes 0.3 % (0-0.5); % Lymphocytes 7.7 % (20.5-51.1); % Monocytes 4.3 % (1.7-9.3); % Neutrophils 87.5 % (42.2-75.2); Absolute Monocytes 0.5 10^3/uL (0.1-0.6); Absolute Neutrophils 11.1 10^3/uL (1.4-6.5)
[2024-08-22 20:32] LABS: ALT (SGPT) 47 U/L (0-35); AST (SGOT) 38 U/L (14-36); Albumin 4.3 g/dl (3.5-5.0); Alkaline Phosphatase 53 U/L (38-126); Blood Urea Nitrogen 14 mg/dl (7-17); Calcium 9.1 mg/dl (8.4-10.2); Carbon Dioxide 20 mmol/L (22-30); Chloride 105 mmol/L (98-107); Estimated Creatinine Clearance 101 ml/min; Glucose 99 mg/dl (70-99); Lipase 227 U/L (23-300); Nucleated Red Blood Cells % 0 %; Potassium 3.8 mmol/L (3.5-5.1); Sodium 137 mmol/L (135-145); Total Bilirubin 1.2 mg/dl (0.2-1.3); Total Protein 7.4 g/dl (6.3-8.2); eGFR > 60.00
[2024-08-22] MEDS: HALDOL 2 MG IV (20:32)
[2024-08-22 20:42] LABS: Platelet Count 278 10^3/uL (130-400)
[2024-08-22 20:43] LABS: Mean Platelet Volume 10.3 fL (7.4-10.4)
[2024-08-22 22:13] VITALS: BP 180/108
[2024-08-22 23:00] VITALS: BP 133/94
--- NOTE | 2024-08-23 00:21 | ED.GENMED ---
History of Present Illness
General
Chief Complaint: Abdominal Pain
Source: patient and family
Time Seen by Provider: 08/22/24 19:17
History of Present Illness
History of Present Illness:
This a 24-year-old female who again re-presents with severe unrelenting abdominal pain. Patient was seen this morning. She also was recently at [facility] admitted for several days. She has also been seen at other local hospitals. She
was transferred from [place] where she goes to school at [employer] [address]. Patient has had recurrence of this over the last year. Dad at bedside states they have been frustrated because in not had any answers. They also state they really have not
seen a specialist as an outpatient. He questions whether this could be endometriosis versus the need for an endoscopy. Patient states in private that she only smokes marijuana socially. She does continue to smoke marijuana but has not smoked in
several weeks. According to previous history taking she used to be a heavier smoker. No hematemesis. No fevers. Patient admits that her blood pressure is often very high during these events. Patient states that in between events she does feel
okay and the symptoms usually last about a week
Past History
Past History
ED Past Medical History: Psychiatric (anxiety ) and Other (PID, ruptured ovarian cyst, cyclic vomiting)
ED Past Surgical History: Other (wisdom teeth)
Social History
Tobacco: Non-smoker
Alcohol: Occasional
Drug: Marijuana
Personal: Single
Living: with family
Employment: Student
Phy Exam
Physical Exam
Physical Exam:
CONSTITUTIONAL Patient alert and oriented to person, place and time. Severe pain distress. Patient writhing in the bed. Vital signs reviewed.
HEAD atraumatic, normocephalic.
EYES eyelids normal to inspection, Extraocular muscles intact, Conjunctiva normal, Sclera normal.
NECK normal range of motion, Trachea midline, no jugular venous distention.
RESPIRATORY CHEST No respiratory distress noted, Chest expansion equal
ABDOMEN moderate upper abdominal tenderness, Bowel sounds normal. No distention.
BACK normal inspection, no obvious deformities
UPPER EXTREMITY range of motion normal, Motor strength normal, no cyanosis, no edema.
LOWER EXTREMITY range of motion normal, Motor strength normal, no cyanosis, no edema.
NEURO Speech normal, No focal motor deficits, Jennifer coma scale 15, Memory normal, Cranial Nerves intact to screening exam.
SKIN skin warm, dry, and normal in color.
Course
Orders/Labs/Results
Orders:
Orders
08/22/24 19:38
Electrocardiogram (*1) Stat
Reason for Study: Abdominal Pain
EKG- Treatment ONCE
08/22/24 19:56
Complete Blood Count/With Diff Urgent
Comprehensive Metabolic Panel Urgent
Lipase Urgent
08/22/24 19:57
Lactic Acid Urgent
08/22/24 20:11
Haloperidol Lactate [Haldol] 2 mg IV NOW STA
08/23/24 00:20
Ketorolac [Toradol] 15 mg IV NOW STA
Abnormal Lab Results
08/22/24
19:56
WBC 12.7 H 10^3/uL
(4.8-10.8)
Absolute Neuts (auto) 11.1 H 10^3/uL
(1.4-6.5)
Absolute Lymphs (auto) 1.0 L 10^3/uL
(1.2-3.4)
Neutrophils % 87.5 H %
(42.2-75.2)
Lymphocytes % 7.7 L %
(20.5-51.1)
Carbon Dioxide 20 L mmol/L
(22-30)
AST 38 H U/L
(14-36)
ALT 47 H U/L
(0-35)
08/22/24 19:56
08/22/24 19:56
Vital Signs
Initial and Last Documented VS:
Initial Vital Signs
Pulse Resp BP Pulse Ox
77 18 176/107 100
08/22/24 18:03 08/22/24 18:03 08/22/24 18:03 08/22/24 18:03
Last Documented Vital Signs
Pulse Resp BP Pulse Ox
97 19 180/108 100
08/22/24 22:15 08/22/24 22:15 08/22/24 22:13 08/22/24 22:15
MDM/Problems Addressed
Differential Diagnosis Includes:
Pancreatitis, duodenitis, peptic ulcer disease, bowel obstruction, cannabinoid hyperemesis syndrome
MDM/Problems Addressed:
Suspected cannabinoid hyperemesis syndrome, intractable abdominal pain
*Pulse Oximetry
Patient hypoxic: no
*Critical Care Note
Total Time (30-74mins, 75-104mins- exclusive of procedures): Not Applicable
Data Reviewed
Review of Other/Old Records Reveals: Progress Notes (Surgical progress notes from February 2024 reviewed) and Discharge Summary (Discharge summary from February 2024 reviewed)
Source: patient and family (Father)
Prescriptions/Medications Considered But Not Given:
Consider narcotics with patient had narcotics this morning and symptoms persist
Further Testing Considered But Not Given:
Consider CT imaging however patient has had multiple CTs without any obvious pathology.
Patient Management
Discussion with other providers: Hospitalist
Escalation/DeEscalation of care consider admission/obs:
Patient was able to sleep after IV Haldol. However upon awakening her pain persist and patient is writhing again. Given the fact this is her second visit today she has been here almost 7 hours with persistent pain, admit for ops. I am holding off
on narcotics at this point. Trial NSAIDs and Bentyl. Continue nausea control with patient did tolerate ice chips and nausea seems improved. Long discussions with both patient and father. Father does state that he has to get her into see some
specialist. I do agree that perhaps a GI evaluation could be warranted. However I do strongly suspect cannabinoid hyperemesis syndrome. She states that she only uses socially but does continue to use it. Her last use was several weeks ago. She
continues to test positive for THC as per her urine earlier today. I strongly recommended avoiding any exposure to THC
ED Attending Note
-
Portions of this chart may have been created with voice recognition software.� Occasional wrong word or��sound alike� substitutions may have occurred due to the inherent limitations of voice recognition software.
Discharge Plan
Departure
Patient Disposition: Admit
Date of Disposition: 08/23/24
Time of Disposition: 00:21
Admit to: Med/Surg
Presentation/result/management discussed w/ accepting MD/DO: Hospitalist
Discharge Problem:
Cyclical vomiting, Cannabinoid hyperemesis syndrome
Prescriptions:
No Action
ibuprofen 600 mg tablet
600 mg PO Q8H PRN (Reason: Pain) Qty: 30 0RF
dicyclomine 20 mg tablet
20 mg PO QID PRN (Reason: abdominal pain) Qty: 30 0RF
pantoprazole [Protonix] 40 mg tablet,delayed release (DR/EC)
40 mg PO DAILY 28 Days Qty: 28 0RF
Referrals:
UNKNOWN - PT DOES,NOT KNOW [Family Provider] -
Interventions
Interventions:
*Risk Screen - Suicide Last Done: 08/22/24 18:05
*Neglect/Abuse Screening Last Done: 08/22/24 18:05
*ED COVID-19 Vaccine History Last Done: 08/22/24 18:08
GW-Fkorpn-Icitabgidd Assessment Last Done: 08/22/24 20:07
Discharge Date and Time
Print Language: YORUBA
[2024-08-23] MEDS: BENTYL 20 MG IM ×2 (00:30→08:47)
[2024-08-23] MEDS: TORADOL 15 MG IV (00:30)
[2024-08-23] MEDS: NSS 1000 IV (00:31)
--- NOTE | 2024-08-23 01:37 | HPS.HSE ---
Family Physician
-
Family Physician: NOT KNOW UNKNOWN - PT DOES
Chief Complaint
-
Abdominal pain
History of Present Illness
This is a 24-year-old who presents to the emergency department with continued abdominal pain. She has past medical history significant for recurrent abdominal pain and vomiting thought to be secondary to cannabis hyperemesis. She was admitted to
the hospital here in February for similar symptoms and over the last few days she was recently seen at [facility] and admitted for several days.
Was getting hospital. That the patient did have a CT abdomen and pelvis with contrast which was unremarkable except for subtle abnormalities of the gallbladder. He then did a ultrasound which showed no abnormalities. The patient had an ultrasound
of the pelvis in March which did not show any uterine abnormalities. She has a follow-up pending with gynecology at [facility]. She has not been able to set up an appointment with GI.
Patient is mostly complaining of abdominal pain and not so much vomiting. She is intolerant of p.o. due to the pain. She is not having any diarrhea. She is not having any fevers or chills. The pain is generally diffuse but localized to the lower
quadrants bilaterally. She is essentially anorexic because of this. She currently denies cannabis use stating that last use was several weeks ago. And that she only smokes socially. The urine drug screen that was done on 08/22 did show positive
cannabis. The patient presentation is certainly out of proportion to the examination. During her stay at [facility] appears to she benefited from droperidol with avoidance of opioids.
In the emergency department she was afebrile, blood pressure was 183/84 with a pulse of 72 and satting 100% on room air. ECG shows a sinus rhythm at rate of 75 with normal QTc. She has a white count of 0.7 otherwise hemogram platelets were normal.
Electrolytes BUN/creatinine were normal. LFTs were marginally elevated l. Lipase was normal.
Medical History
Past Medical History
Past Medical History: Reports None
Past Surgical History: Reports None
Social History
Tobacco: Non-smoker
Alcohol: Occasional
Drug: Marijuana
Family History
Family History: Adopted
Allergies / Home Medications
Allergies reflects when Allergies were last updated in [employer].
Home Medications with original date entered in [employer]
Allergy/Medication List:
Allergies
Allergy/AdvReac Type Severity Reaction Status Date / Time
hydroxyzine [From Atarax] Allergy Mild Rash Verified 08/22/24 18:05
Home Medications
ibuprofen 600 mg tablet 600 mg PO Q8H PRN Pain #30 tabs 03/31/24
dicyclomine 20 mg tablet 20 mg PO QID PRN abdominal pain #30 tabs 08/22/24
pantoprazole 40 mg tablet,delayed release (Protonix) 40 mg PO DAILY 4 weeks #28 tabs 08/22/24
Review of Systems
-
History Source: Patient
Constitutional: Reports No Symptoms
EENT: Reports No Symptoms
Respiratory: Reports No Symptoms
Cardiac: Reports No Symptoms
Abdomen/GI: Reports Abdominal Pain and Nausea
: Reports No Symptoms
Musculoskeletal: Reports No Symptoms
Skin: Reports No Symptoms
Neurological: Reports No Symptoms
Endocrine: Reports No Symptoms
Hematologic/Lymphatic: Reports No Symptoms
Psych: Reports No Symptoms
Physical Exam
Vital Signs
Vital Signs
Temp Pulse Resp BP Pulse Ox
98.4 F 72 22 133/94 100
08/23/24 00:40 08/23/24 01:00 08/23/24 01:00 08/22/24 23:00 08/23/24 00:30
Physical Exam
General: Well Developed, Conversant and Poor Appetite
HEENT: NormoCephalic, Anicteric and Moist mucous membranes
Respiratory: Clear
Cardiac: S1/S2 and Regular Rhythm
Breast: Deferred by me
GI: Soft, Non Tender, Non Distended and Normal Bowel Sounds
Rectal: Deferred by Provider
Genito-urinary: Deferred by me
Musculoskeletal: No Clubbing, No Cyanosis and No Edema
Skin: Warm
Neuro: AO x 3 and Nonfocal/grossly intact
Hematologic/Lymphatic: No Lymphadenopathy
Psych: Calm
Laboratory Results
-
08/22/24 19:56
08/22/24 19:
Laboratory Results
Lactic Acid 1.7 mmol/L (0.7-2.0) 08/22/24 19:57
Total Bilirubin 1.2 mg/dl (0.2-1.3) 08/22/24 19:56
AST 38 U/L (14-36) H 08/22/24:
ALT 47 U/L (0-35) H 08/22/24:56
Alkaline Phosphatase 53 U/L (38-126) 08/22/24:
Lipase 227 U/L (23-300) 08/22/24 19:56
Data Reviewed
-
Medical Tests (Nuc Med, Echo, EKG etc): Image Personally Visualized and interpreted
Lab Data: Labs Reviewed by me
Old Records: Reviewed
Impression/Plan
-
IMPRESSION:
24 y.o with recurrent intractable nausea and abdominal pain with recent admission at [facility] for several days. Her labs are normal and she is non-toxic and hemodynamically stable. She endorsed chronic recreational marijuana but last use
was several weeks ago. test negative. U/A without UTI. Prior imaging without acute anomaly. THC positive on UDS today. She has had multiple CT scans over the last year without any findings. The UDS is again positive for cannabis
today.
PLAN:
1. Intractable N/ abdominal pain - Cannabis hyperemesis versus gastroparesis.
- admit to med/surg
- advance to clears
- start haldol q 6 hours prn
- bentyl q 6 standing
- toradol q 6 prn
- ppi iv daily
- obtain records from [facility] in am
- GI consultation
DVT PPX - SCDs
Code status - Full Code
[2024-08-23 04:45] VITALS: BP 174/108
--- NOTE | 2024-08-23 04:45 | PTCARENOTE ---
Pt ambulated from stretcher to bed independently into rm [id number]. Pt is AAOx3, very anxious and tearful and requesting medication for severe pain in her middle upper abdomen. PRN IV Toradol provided. Pt oriented to room, call pederson within reach.
BP elevated at 174/108, HR 70, afebrile.
[2024-08-23 04:52] VITALS: BMI 18.7
[2024-08-23] MEDS: TORADOL 10 MG IV ×2 (04:53→21:55)
[2024-08-23] MEDS: D5LR 1000 IV (06:23)
[2024-08-23] MEDS: TYLENOL 650 MG PO ×2 (06:23→12:30)
[2024-08-23] MEDS: HALDOL 2 MG IV (06:23)
[2024-08-23 07:25] LABS: Hematocrit 38.6 % (37.0-47.0); Hemoglobin 14.3 g/dL (12.0-16.0); Mean Corpuscular Hgb 30.5 pg (27.0-31.0); Mean Corpuscular Volume 82.3 fL (81.0-99.0); Mean Platelet Volume 10.9 fL (7.4-10.4); Platelet Count 261 10^3/uL (130-400); Red Blood Cell Count 4.69 10^6/uL (4.20-5.40); Red Cell Dist. Width 11.9 % (11.5-14.5); White Blood Cell Count 11.6 10^3/uL (4.8-10.8)
[2024-08-23 07:30] VITALS: BP 145/91
[2024-08-23 07:57] LABS: Blood Urea Nitrogen 9 mg/dl (7-17); Calcium 8.5 mg/dl (8.4-10.2); Carbon Dioxide 15 mmol/L (22-30); Chloride 106 mmol/L (98-107); Estimated Creatinine Clearance 118 ml/min; Glucose 78 mg/dl (70-99); Potassium 3.1 mmol/L (3.5-5.1); Sodium 137 mmol/L (135-145); eGFR > 60.00
[2024-08-23] MEDS: PROTONIX IV 40 MG IV (08:15)
[2024-08-23] MEDS: NSS (PRESERVATIVE FREE) 10 ML IV (08:15)
[2024-08-23] MEDS: DILAUDID 0.5 MG IV (08:47)
--- NOTE | 2024-08-23 09:47 | W.PN.HOSP.TC ---
Addendum entered and electronically signed by Henry Reynolds MD 08/23/24 14:04:
Metabolic acidosis likely due to GI losses--> started on IV bicarb drip and reevaluate acid-base status later this afternoon.
Original Note:
Today's Communication/Plan
-
Plan for EGD in a.m.
Assessment / Plan
Assessment / Plan
Physical exam:
General: Well Developed, Well Nourished and No Apparent Distress
HEENT: Normocephalic, Atraumatic and Moist Mucous Membranes
Respiratory: Clear to Auscultation; Negative Wheezes, Rales or Rhonchi
Cardiac: Regular Rhythm and S1/S2
GI: Soft, tender and Nondistended
Musculoskeletal: No Clubbing, No Cyanosis and No Edema
Neuro: Awake, Alert and Oriented
Psych: Calm
A/P:
24 y.o with recurrent intractable nausea and abdominal pain with recent admission at [facility] for several days. Her labs are normal and she is non-toxic and hemodynamically stable. She endorsed chronic recreational marijuana but last use
was several weeks ago. test negative. U/A without UTI. Prior imaging without acute anomaly. THC positive on UDS today. She has had multiple CT scans over the last year without any findings. The UDS is again positive for cannabis
today.
PLAN:
1. Intractable N/ abdominal pain -workup in progress
- admit to med/surg
- advance to clears and n.p.o. after midnight for procedure
- start haldol q 6 hours prn
- bentyl q 6 standing
- toradol q 6 prn
- ppi iv daily
- obtain records from [facility] in am
- GI consultation appreciated and plan for upper endoscopy tomorrow
- Add IV Dilaudid as needed for 24 hours
- Discussed with father at bedside today
DVT PPX - SCDs
Code status - Full Code
Anticipated Discharge: 24 - 48 hours
Subjective/Interval History
-
Date of Service: August 23, 2024
Patient still having abdominal pain on and off associated with nausea. No vomiting. Afebrile
Objective Data
-
Labs:
Laboratory Results
08/23/24
06:16
WBC 11.6 H
Hgb 14.3
Hct 38.6
Plt Count 261
Sodium 137
Potassium 3.1 L
Chloride 106
Carbon Dioxide 15 L
BUN 9
Creatinine 0.6
Glucose 78
Calcium 8.5
Vital Signs:
Vital Signs
Temp Pulse Resp BP Pulse Ox
98.9 F 71 18 145/91 100
08/23/24 07:30 08/23/24 07:30 08/23/24 07:30 08/23/24 07:30 08/23/24 07:30
--- NOTE | 2024-08-23 10:13 | CON.GI ---
Consultation
-
Date/Time Consultation Performed: 08/23/24
Performing Provider: Mathieu Zaidi MD
Reason for Consultation: abdominal pain, N/V
Medical History
Chief Complaint / HPI
Chief Complaint: abdominal pain, N/V
History of Present Illness:
The patient is a 24-year-old female past medical history as noted with abdominal pain, nausea and vomiting. She has had the symptoms going on for more than a year, with pain which describes in the epigastric/right upper quadrant but then nausea and
vomiting which is intractable when it lasts for several days. She has had multiple hospitalizations and studies which have been unremarkable. More recently she had a severe episode and had CT scan with questionable air in the chest by report and
was helicoptered to [place], though apparently this was thought to be from a small spontaneous pneumothorax. She went home and was eating well up until the last couple days when she had recurrent symptoms. The symptoms are intermittent, usually
once every few weeks, and definitely parallel her menstrual course. She did see COMPUTER ASSEMBLER in the past and was diagnosed with probable endometriosis and started on control, though really no significant improvement. She does smoke marijuana though
on occasion, and in the interim between these more severe symptoms does well with no early satiety, James pain, nausea or vomiting. She has lost significant weight around this time.
Past Medical History
Past Medical History: None
Past Surgical History: None
Social History
Tobacco: Non-Smoker
Alcohol: Occasional
Drug: Marijuana
Family History
Family History: Reviewed & Not Pertinent
Allergies / Home Medications
Allergy/AdvReac Type Severity Reaction Status Date / Time
hydroxyzine [From Atarax] Allergy Mild Rash Verified 08/22/24 18:05
�Medication �Instructions �Recorded
ibuprofen 600 mg tablet 600 mg PO Q8H PRN Pain #30 tabs 03/31/24
dicyclomine 20 mg tablet 20 mg PO QID PRN abdominal pain 08/22/24
#30 tabs
pantoprazole 40 mg tablet,delayed 40 mg PO DAILY 4 weeks #28 tabs 08/22/24
release (Protonix)
Review of Systems
-
All other systems: A 12 pt ROS was Negative except as stated above in HPI
Vital Signs
Temp Pulse Resp BP Pulse Ox
98.9 F 71 18 145/91 100
08/23/24 07:30 08/23/24 07:30 08/23/24 07:30 08/23/24 07:30 08/23/24 07:30
Physical Exam
Results
WBC 11.6 10^3/uL (4.8-10.8) H 08/23/24 06:16
Hgb 14.3 g/dL (12.0-16.0) 08/23/24 06:16
Hct 38.6 % (37.0-47.0) 08/23/24 06:16
MCV 82.3 fL (81.0-99.0) 08/23/24 06:16
Plt Count 261 10^3/uL (130-400) 08/23/24 06:16
Absolute Neuts (auto) 11.1 10^3/uL (1.4-6.5) H 08/22/24 19:56
Sodium 137 mmol/L (135-145) 08/23/24 06:16
Potassium 3.1 mmol/L (3.5-5.1) L 08/23/24 06:16
Chloride 106 mmol/L (98-107) 08/23/24 06:16
Carbon Dioxide 15 mmol/L (22-30) L 08/23/24 06:16
BUN 9 mg/dl (7-17) 08/23/24 06:16
Creatinine 0.6 mg/dL (0.6-1.0) 08/23/24 06:16
Calcium 8.5 mg/dl (8.4-10.2) 08/23/24 06:16
Total Bilirubin 1.2 mg/dl (0.2-1.3) 08/22/24 19:56
AST 38 U/L (14-36) H 08/22/24 19:56
ALT 47 U/L (0-35) H 08/22/24 19:56
Alkaline Phosphatase 53 U/L (38-126) 08/22/24 19:56
Lipase 227 U/L (23-300) 08/22/24 19:56
Diagnostic Image Results:
Prior GI Procedures:
EGD:
Colonoscopy:
Assessment / Plan
-
1. Abdominal pain: With nausea and vomiting, with episodic symptoms over the past more than a year, though in the interim does well with no GI symptoms and eating okay. Given the intermittent nature, possible etiologies to include endometriosis
given its relationship to her menstrual cycle pretty specifically, or hormonally related motility changes. Other GI issues including peptic ulcer disease, SMA syndrome, inflammatory bowel disease etc. seem unlikely given the intermittent nature of
the symptoms. She does smoke marijuana though cannabis hyperemesis also seems a little less likely though not completely excluded. At this point we discussed continued supportive care, fluids, antiemetics, clear liquid diet for now. Will plan EGD
tomorrow, and discussed cannabis abstinence. She has an appoint with [facility]ER at the [facility], and if all above negative do think laparoscopy would be of benefit.
-
-
Thank you for consultation and allowing me to participate in the patient's care. Please call the specialist employee labor relations GI physician during the after hours with any questions or concerns.
--- NOTE | 2024-08-23 10:53 | CM ---
CM reviewed chart, patient admitted to Hospital for severe abdominal pain. Patient seen asleep with patients boyfriends father, initial assessment completed by boyfriends father. Patient resides with boyfriend, boyfriends mother, father in a two
story home. Patient is independent with ADLs/IADLs, denies use of DME, no VN history. Patient PCP through [facility], pharmacy [facility]. OBS form reviewed, refused to sign, placed in chart, provided with copy. GI
consulted, plan for EGD tomorrow. CM will continue to follow for all discharge planning needs.
Plan; home no needs likely.
[2024-08-23] MEDS: SODIUM BICARBONATE 1075 MEQ IV (11:37)
[2024-08-23 15:06] VITALS: BP 125/84
--- NOTE | 2024-08-23 15:14 | CM ---
CM reviewed chart, patient admitted to Hospital for severe abdominal pain. Patient seen asleep with patients father, initial assessment completed by father. Per father, patient resides with father, mother, and brother in a two story home. Patient
is independent with ADLs/IADLs, denies use of DME, no VN history. Patient PCP through [facility], pharmacy [facility]. OBS form reviewed, refused to sign, placed in chart, provided with copy. GI consulted, plan for EGD
tomorrow. CM will continue to follow for all discharge planning needs.
Plan; home no needs likely.
[2024-08-23] MEDS: DILAUDID 0.25 MG IV (20:32)
[2024-08-23 21:32] LABS: Blood Urea Nitrogen 11 mg/dl (7-17); Carbon Dioxide 24 mmol/L (22-30); Chloride 105 mmol/L (98-107); Estimated Creatinine Clearance 118 ml/min; Glucose 101 mg/dl (70-99); Potassium 2.9 mmol/L (3.5-5.1); Sodium 135 mmol/L (135-145); eGFR > 60.00
[2024-08-23] MEDS: LR 1000 IV (21:51)
[2024-08-23] MEDS: BENTYL 10 MG PO (22:03)
[2024-08-23 23:06] VITALS: BP 108/68
[2024-08-24] VITALS (23 sets, daily range): BP systolic 12–212; BP diastolic 69–182
[2024-08-24 07:37] LABS: Hematocrit 34.7 % (37.0-47.0); Hemoglobin 12.8 g/dL (12.0-16.0); Mean Corp Hgb Conc. 36.9 g/dL (33.0-37.0); Mean Corpuscular Hgb 31.1 pg (27.0-31.0); Mean Corpuscular Volume 84.2 fL (81.0-99.0); Mean Platelet Volume 9.9 fL (7.4-10.4); Platelet Count 230 10^3/uL (130-400); Red Blood Cell Count 4.12 10^6/uL (4.20-5.40); Red Cell Dist. Width 11.9 % (11.5-14.5); White Blood Cell Count 5.8 10^3/uL (4.8-10.8)
--- NOTE | 2024-08-24 08:18 | W.PN.HOSP.TC ---
Today's Communication/Plan
-
Added Reglan
Assessment / Plan
Assessment / Plan
Impression:
24 y.o with recurrent intractable nausea and abdominal pain with recent admission at [facility] for several days. Her labs are normal and she is non-toxic and hemodynamically stable. She endorsed chronic recreational marijuana but last use
was several weeks ago. test negative. U/A without UTI. Prior imaging without acute anomaly. THC positive on UDS today. She has had multiple CT scans over the last year without any findings. The UDS is again positive for cannabis.
GI consulted, EGD done which came back unremarkable
Assessment/plan:
Intractable N/ abdominal pain -workup in progress
Multiple recurrent admission with the same.
Possible cannabinoid hyperemesis syndrome.
EGD unremarkable
continue haldol q 6 hours prn
bentyl q 6 standing
toradol q 6 prn
ppi iv daily
Added Reglan 10 mg every 6 hours
Hypertensive emergency
At PACU.
No history of hypertension, possible secondary to pain and anxiety
Received hydralazine
Continue to monitor
History of endometriosis
Continue follow-up as outpatient with gynecology
CODE STATUS: Full code
DVT prophylaxis: SCD
Diet: Clear liquid diet.
Total time spent on today's encounter was 65 minutes which included time spent in counseling the patient/family regarding diagnosis and treatment plan as listed above, goals of care, and symptom management. Case was discussed with nursing staff,
specialists, and care coordinators/case management. All labs and imaging personally reviewed by me. Remainder the time spent in detailed review of previous records, lab data, imaging, and other medical provider documentation.
Anticipated Discharge: Within 24 hours
Subjective/Interval History
-
Date of Service: August 24, 2024
Discussed with father in the morning at bedside.
Patient seen at the PACU, was complaining of severe epigastric pain, also blood pressure was elevated.
Patient seen again at her room, mother at bedside.
Still complaining of epigastric pain, ordered Prince Regjose every 6 hours.
Objective Data
-
Labs:
Laboratory Results
08/23/24 08/24/24
21:11 06:32
WBC 5.8
Hgb 12.8
Hct 34.7 L
Plt Count 230
Sodium 135 Pending
Potassium 2.9 L Pending
Chloride 105 Pending
Carbon Dioxide 24 Pending
BUN 11 Pending
Creatinine 0.6 Pending
Glucose 101 H Pending
Calcium 8.0 L Pending
Vital Signs:
Vital Signs
Temp Pulse Resp BP Pulse Ox
98.8 F 75 20 114/69 100
08/24/24 07:00 08/24/24 07:00 08/24/24 07:00 08/24/24 07:00 08/24/24 07:00
I&O
08/23/24 08/24/24 08/25/24
06:59 06:59 06:59
Intake Total 2650 / 2650
Balance 2650 / 2650
Physical Exam
-
General: Well Developed, Well Nourished, No Apparent Distress and Comfortable
HEENT: Normocephalic, Atraumatic, Moist Mucous Membranes, No Ptosis, PERRLA and Nose Appears Normal
Respiratory: Clear to Auscultation and Non Labored Respirations
Cardiac: Regular Rhythm and S1/S2
Breast: Deferred by me
GI: Soft, Normal Bowel Sounds and Tender
Genito-urinary: No Costovertebral Tender
Musculoskeletal: No Clubbing, No Cyanosis and No Edema
Skin: Warm
Neuro: Awake, Alert, Oriented, AO x 3 and No Motor Deficits
Psych: Calm
Data Reviewed
-
Diagnostic Radiology: Image personally visualized and interpreted and Report Reviewed by me
CT Scan: Image personally visualized and interpreted and Report Reviewed by me
Ultrasound: Image personally visualized and interpreted and Report Reviewed by me
MRI: Image personally visualized and interpreted and Report Reviewed by me
Medical Tests (Nuc Med, Echo etc): Image personally visualized and interpreted and Report Reviewed by me
Labs: Labs Reviewed by me
Old Records: Reviewed
[2024-08-24 08:24] LABS: Blood Urea Nitrogen 10 mg/dl (7-17); Calcium 8.5 mg/dl (8.4-10.2); Carbon Dioxide 26 mmol/L (22-30); Chloride 104 mmol/L (98-107); Estimated Creatinine Clearance 101 ml/min; Glucose 78 mg/dl (70-99); Potassium 3.2 mmol/L (3.5-5.1); Sodium 137 mmol/L (135-145); eGFR > 60.00
[2024-08-24] MEDS: NSS (PRESERVATIVE FREE) 10 ML IV (08:29)
[2024-08-24] MEDS: PROTONIX IV 40 MG IV (08:29)
[2024-08-24] MEDS: DILAUDID 0.25 MG IV (10:36)
[2024-08-24] MEDS: LR 1000 IV (10:37)
[2024-08-24] MEDS: DILAUDID 0.5 MG IV ×3 (13:23→21:33)
[2024-08-24] MEDS: TORADOL 10 MG IV ×2 (13:53→21:33)
[2024-08-24] MEDS: APRESOLINE 5 MG IV ×2 (14:04→14:16)
--- NOTE | 2024-08-24 14:34 | SUR.PHASEI ---
patient with high anxiety, anxious, hyperventilates, c/o of abd pain with negative endo, BP very elevated, spoke with Dr Banuelos, treated with dilaudid or pain, some improvement, remains anxious, c/o wander from pain to tingling hands to wave of
nausea to thirst. on and off bedpan for total of 900 cc out. toradol for pain. hydralazine 5mg x2 for bp with improvement to 178/98. Dr Latham at bedside. Wants pt to return to 4 th floor and receive haldol. Patient agrees to same. Report to
[facility] and transported by stretcher to room
[2024-08-24] MEDS: HALDOL 2 MG IV (14:49)
[2024-08-24] MEDS: REGLAN 10 MG IV ×2 (15:25→21:33)
[2024-08-24] MEDS: BENTYL 10 MG PO (21:33)
[2024-08-25] MEDS: HALDOL 2 MG IV (00:04)
[2024-08-25] MEDS: TYLENOL 650 MG PO (00:04)
[2024-08-25] MEDS: DILAUDID 0.5 MG IV (02:09)
[2024-08-25] MEDS: LR 1000 IV (03:16)
[2024-08-25] MEDS: REGLAN 10 MG IV ×4 (03:16→13:49)
[2024-08-25 03:25] VITALS: BP 105/59
[2024-08-25 07:00] VITALS: BP 143/80
[2024-08-25 08:03] LABS: Hematocrit 35.9 % (37.0-47.0); Hemoglobin 13.4 g/dL (12.0-16.0); Mean Corp Hgb Conc. 37.3 g/dL (33.0-37.0); Mean Corpuscular Hgb 30.6 pg (27.0-31.0); Mean Platelet Volume 9.5 fL (7.4-10.4); Platelet Count 271 10^3/uL (130-400); Red Blood Cell Count 4.38 10^6/uL (4.20-5.40); Red Cell Dist. Width 11.8 % (11.5-14.5)
[2024-08-25] MEDS: PROTONIX IV 40 MG IV (08:04)
[2024-08-25] MEDS: NSS (PRESERVATIVE FREE) 10 ML IV (08:05)
[2024-08-25 08:30] LABS: Blood Urea Nitrogen 9 mg/dl (7-17); Calcium 8.8 mg/dl (8.4-10.2); Carbon Dioxide 20 mmol/L (22-30); Chloride 108 mmol/L (98-107); Estimated Creatinine Clearance 118 ml/min; Glucose 75 mg/dl (70-99); Potassium 3.2 mmol/L (3.5-5.1); Sodium 135 mmol/L (135-145); eGFR > 60.00
--- NOTE | 2024-08-25 10:35 | W.PN.GI.CBS2 ---
Today's Communication / Plan
-
Etiology of symptoms related to endometriosis with symptoms worse with menstrual cycle, cannabis induced, anxiety, biliary vs other
pt currently on reglan 10mg IV AC, PPI daily, with Bentyl PRN and Toradol PRN
discussed trial of small frequent meals with low fat, low fiber, avoid fizzy soda
absolute Cannibis abstinence for several months
repeat AST/ALT
stress reduction
cont to replete K per hospitalist
family updated
reviewed with nursing staff
Assessment / Plan
-
The patient is a 24-year-old female past medical history as noted with abdominal pain, nausea and vomiting. She has had the symptoms going on for more than a year, with pain which describes in the epigastric/right upper quadrant but then nausea and
vomiting which is intractable when it lasts for several days. She has had multiple hospitalizations and studies which have been unremarkable. More recently she had a severe episode and had CT scan with questionable air in the chest by report and
was helicoptered to [facility], though apparently this was thought to be from a small spontaneous pneumothorax. She went home and was eating well up until the last couple days when she had recurrent symptoms. The symptoms are intermittent, usually
once every few weeks, and definitely parallel her menstrual course. She did see [facility]GET[facility] WORK[facility] in the past and was diagnosed with probable endometriosis and started on control, though really no significant improvement. She does smoke marijuana though
on occasion.
08/24- EGD normal esophagus, stomach, duodenum
02/2024 CT A/p
Evaluation of the intestinal tract again markedly limited due to marked paucity of intra-abdominal/pelvic fat and lack of oral contrast opacification of the distal small bowel and entire large bowel. Appendix again not definitively identified and on
the basis of this study acute appendicitis cannot be excluded. Although not discretely seen, an acute inflammatory/infectious process of the intestinal tract, particularly the large bowel cannot be excluded. Follow-up CT with increased volume oral
contrast and delayed imaging suggested, if clinically warranted.
Small volume complex free fluid seen within the right dependent true pelvis has decreased in volume and small right adnexal/ovarian cyst seen on recent prior study is no longer discretely identified.
08/25 US There is no sonographic evidence of cholelithiasis, acute cholecystitis or biliary duct dilation.
The liver appears mildly hypoechoic with slight prominence of the portal veins which is nonspecific however can be seen with hepatitis. Consider correlation with lab values.
-abdominal pain with nausea and vomiting with recurrent episodes
-hx possible air in chest with small spontaneous pneumothorax
-increased AST/ALT on admission
US with slight prominence portal veins
-hx endometriosis
-hx Cannibis use
-hypokalemia
PLAN:
Etiology of symptoms related to endometriosis with symptoms worse with menstrual cycle, cannabis induced, anxiety, biliary vs other
pt currently on reglan 10mg IV AC, PPI daily, with Bentyl PRN and Toradol PRN
discussed trial of small frequent meals with low fat, low fiber, avoid fizzy soda
absolute Cannibis abstinence for several months
repeat AST/ALT
stress reduction
cont to replete K per hospitalist
family updated
reviewed with nursing staff
Subjective
Subjective
Date of Service: August 25, 2024
on clear diet, no stools feeling better and tolerating diet
Objective
Data Reviewed
Laboratory Data:
Laboratory Results
08/25/24 07:42
08/25/24 07:42
Laboratory Results
Total Bilirubin 1.2 mg/dl (0.2-1.3) 08/22/24 19:56
AST 38 U/L (14-36) H 08/22/24 19:56
ALT 47 U/L (0-35) H 08/22/24 19:56
Alkaline Phosphatase 53 U/L (38-126) 08/22/24 19:56
Lipase 227 U/L (23-300) 08/22/24 19:56
Vital Signs and I&O:
Vital Signs
Temp Pulse Resp BP Pulse Ox
98.7 F 80 19 143/80 99
08/25/24 07:00 08/25/24 07:00 08/25/24 07:00 08/25/24 07:00 08/25/24 08:05
I&O
08/24/24 08/25/24 08/26/24
06:59 06:59 06:59
Intake Total 2650 / 2650 1360 / 1360
Balance 2650 / 2650 1360 / 1360
Physical Exam
Physical Exam
HEENT: Anicteric and Moist mucous membranes
Cardiology: Normal Sinus Rhythm
Pulmonary: Clear
GI: Soft, Non Distended and Non Tender
Extremities: No Edema
Neuro: Non Focal
[2024-08-25] MEDS: KCL 40 MEQ PO (11:13)
--- NOTE | 2024-08-25 11:23 | W.PN.HOSP.TC ---
Today's Communication/Plan
-
Discharge home today if tolerates lunch
Assessment / Plan
Assessment / Plan
Impression:
24 y.o with recurrent intractable nausea and abdominal pain with recent admission at [facility] for several days. Her labs are normal and she is non-toxic and hemodynamically stable. She endorsed chronic recreational marijuana but last use
was several weeks ago. test negative. U/A without UTI. Prior imaging without acute anomaly. THC positive on UDS today. She has had multiple CT scans over the last year without any findings. The UDS is again positive for cannabis.
GI consulted, EGD done which came back unremarkable
Ultrasound abdomen done showed:
There is no sonographic evidence of cholelithiasis, acute cholecystitis or biliary duct dilation.
The liver appears mildly hypoechoic with slight prominence of the portal veins which is nonspecific however can be seen with hepatitis. Consider correlation with lab values.
Overall symptoms improved and patient tolerating diet.
Discharge home today after lunch.
Assessment/plan:
Intractable N/ abdominal pain -workup in progress
Multiple recurrent admission with the same.
Possible cannabinoid hyperemesis syndrome.
EGD unremarkable
Ultrasound abdomen done showed:
There is no sonographic evidence of cholelithiasis, acute cholecystitis or biliary duct dilation.
The liver appears mildly hypoechoic with slight prominence of the portal veins which is nonspecific however can be seen with hepatitis. Consider correlation with lab values.
Overall symptoms improved and patient tolerating diet.
Discharge home today after lunch.
Discharge patient on Bentyl/Toradol/pantoprazole/Reglan
Hypertensive emergency
At PACU.
No history of hypertension, possible secondary to pain and anxiety
Received hydralazine
Continue to monitor
08/25
Resolved
Hypokalemia.
Replaced
Elevated LFTs.
Mild.
Follow-up labs
History of endometriosis
Continue follow-up as outpatient with gynecology
CODE STATUS: Full code
DVT prophylaxis: SCD
Diet: LRD.
Total time spent on today's encounter was 65 minutes which included time spent in counseling the patient/family regarding diagnosis and treatment plan as listed above, goals of care, and symptom management. Case was discussed with nursing staff,
specialists, and care coordinators/case management. All labs and imaging personally reviewed by me. Remainder the time spent in detailed review of previous records, lab data, imaging, and other medical provider documentation.
Anticipated Discharge: Today
Subjective/Interval History
-
Date of Service: August 25, 2024
Patient seen and examined at bedside, discussed with mother at bedside, overall feeling better, denies any chest pain or shortness of breath, no abdominal pain, no nausea, no vomiting, no diarrhea or constipation.
Advance diet.
Objective Data
-
Labs:
Laboratory Results
08/25/24
07:42
WBC 9.0
Hgb 13.4
Hct 35.9 L
Plt Count 271
Sodium 135
Potassium 3.2 L
Chloride 108 H
Carbon Dioxide 20 L
BUN 9
Creatinine 0.5 L
Glucose 75
Calcium 8.8
Total Bilirubin Pending
AST Pending
ALT Pending
Alkaline Phosphatase Pending
Vital Signs:
Vital Signs
Temp Pulse Resp BP Pulse Ox
98.7 F 80 19 143/80 99
08/25/24 07:00 08/25/24 07:00 08/25/24 07:00 08/25/24 07:00 08/25/24 08:05
I&O
08/24/24 08/25/24 08/26/24
06:59 06:59 06:59
Intake Total 2650 / 2650 1360 / 1360
Balance 2650 / 2650 1360 / 1360
Physical Exam
-
General: Well Developed, Well Nourished, No Apparent Distress and Comfortable
HEENT: Normocephalic, Atraumatic, Moist Mucous Membranes, No Ptosis, PERRLA and Nose Appears Normal
Respiratory: Clear to Auscultation and Non Labored Respirations
Cardiac: Regular Rhythm and S1/S2
Breast: Deferred by me
GI: Soft and Normal Bowel Sounds
Genito-urinary: No Costovertebral Tender
Musculoskeletal: No Clubbing, No Cyanosis and No Edema
Skin: Warm
Neuro: Awake, Alert, Oriented, AO x 3 and No Motor Deficits
Psych: Calm
Data Reviewed
-
Diagnostic Radiology: Image personally visualized and interpreted and Report Reviewed by me
CT Scan: Image personally visualized and interpreted and Report Reviewed by me
Ultrasound: Image personally visualized and interpreted and Report Reviewed by me
MRI: Image personally visualized and interpreted and Report Reviewed by me
Medical Tests (Nuc Med, Echo etc): Image personally visualized and interpreted and Report Reviewed by me
Labs: Labs Reviewed by me
Old Records: Reviewed
[2024-08-25 11:38] LABS: ALT (SGPT) 44 U/L (0-35); AST (SGOT) 28 U/L (14-36); Albumin 3.4 g/dl (3.5-5.0); Alkaline Phosphatase 44 U/L (38-126); Direct Bilirubin 0.4 mg/dl (0.0-0.4); Total Bilirubin 1.1 mg/dl (0.2-1.3)
[2024-08-25] MEDS: LR IV (12:50)
--- NOTE | 2024-08-25 13:58 | W.DCSUMMARY ---
Discharge Summary
Discharge Data
Date of Admission: 08/24/24
Date of Discharge: 08/25/24
-
Pending Results: No
Hospital Course
Hospital course
24 y.o with recurrent intractable nausea and abdominal pain with recent admission at [facility] for several days. Her labs are normal and she is non-toxic and hemodynamically stable. She endorsed chronic recreational marijuana but last use
was several weeks ago. test negative. U/A without UTI. Prior imaging without acute anomaly. THC positive on UDS today. She has had multiple CT scans over the last year without any findings. The UDS is again positive for cannabis.
GI consulted, EGD done which came back unremarkable
Ultrasound abdomen done showed:
There is no sonographic evidence of cholelithiasis, acute cholecystitis or biliary duct dilation.
The liver appears mildly hypoechoic with slight prominence of the portal veins which is nonspecific however can be seen with hepatitis. Consider correlation with lab values.
Overall symptoms improved and patient tolerating diet.
Discharge home today after lunch.
During hospitalization patient was treated from the following
Intractable N/ abdominal pain -workup in progress
Multiple recurrent admission with the same.
Possible cannabinoid hyperemesis syndrome.
EGD unremarkable
Ultrasound abdomen done showed:
There is no sonographic evidence of cholelithiasis, acute cholecystitis or biliary duct dilation.
The liver appears mildly hypoechoic with slight prominence of the portal veins which is nonspecific however can be seen with hepatitis. Consider correlation with lab values.
Overall symptoms improved and patient tolerating diet.
Discharge home today after lunch.
Discharge patient on Bentyl/Toradol/pantoprazole/Reglan
Hypertensive emergency
At PACU.
No history of hypertension, possible secondary to pain and anxiety
Received hydralazine
Continue to monitor
08/25
Resolved
Hypokalemia.
Replaced
Elevated LFTs.
Mild.
Follow-up labs
History of endometriosis
Continue follow-up as outpatient with gynecology
CODE STATUS: Full code
DVT prophylaxis: SCD
Diet: LRD.
Total time spent on today's encounter was 40 minutes which included time spent in counseling the patient/family regarding diagnosis and treatment plan as listed above, goals of care, and symptom management. Case was discussed with nursing staff,
specialists, and care coordinators/case management. All labs and imaging personally reviewed by me. Remainder the time spent in detailed review of previous records, lab data, imaging, and other medical provider documentation.
Anticipated Discharge: Today
Discharge Plan
-
Patient Disposition: Home (Routine Discharge)
Discharge Diagnosis/Procedures: Intractable nausea and vomiting.
Possible gastroparesis.
Possible cannabinoid hyperemesis syndrome.
Endometriosis
Diet: Low Residue
Activity: As tolerated
Others Tests: May need gastric emptying study as outpatient.
Stand Alone Forms: Back to School
Referrals:
Benson Zaidi MD [Active] - in two to three days
UNKNOWN - PT DOES,NOT KNOW [Family Provider] -
Prescriptions:
New
metoclopramide HCl [Reglan] 10 mg tablet
10 mg PO AC Qty: 30 0RF
Rx Instructions:
30 minutes before meals
ketorolac 10 mg tablet
10 mg PO Q6H PRN (Reason: Pain) 5 Days Qty: 20 0RF
Rx Instructions:
Please do not take with Ibuprofen
Continued
dicyclomine 20 mg tablet
20 mg PO QID PRN (Reason: abdominal pain) Qty: 30 0RF
pantoprazole [Protonix] 40 mg tablet,delayed release (DR/EC)
40 mg PO DAILY 28 Days Qty: 28 0RF
Discontinued
ibuprofen 600 mg tablet
600 mg PO Q8H PRN (Reason: Pain) Qty: 30 0RF
Discharge Orders:
Discharge Patient (As Directed); Ordered 08/25/24
Ordered By: Rajeev Latham
Discharge Date and Time
Print Language: SOLOM[place] ISLANDER
--- NOTE | 2024-08-25 14:01 | CM ---
Chart reviewed. Discharge home today if tolerates lunch.
No CM needs at this time
[2024-08-25 14:51] VITALS: BP 127/82
== END 2024-08-25 14:57 | disposition home or self-care (01) | DRG 392 ==
LOC: 4 WEST ACU 08:18
PROVIDERS: Hospitalist; ADMITTING PHYSICIAN Internal Medicine; ATTENDING PHYSICIAN General Practice; CONSULT PHYSICIAN Internal Medicine Gastroenterology; EMERGENCY PHYSICIAN Emergency Medicine
PROC: 0DJ08ZZ Inspection of Upper Intestinal Tract, Via Natural or Artificial Opening Endoscopic (ICD-10-PCS; 2024-08-24)
DX: R11.2 Nausea with vomiting, unspecified (principal); E87.20 Acidosis, unspecified; I16.1 Hypertensive emergency; K31.84 Gastroparesis; F12.90 Cannabis use, unspecified, uncomplicated; E87.6 Hypokalemia; N80.9 Endometriosis, unspecified
CPT/HCPCS: 76700; 80048; 80053; 82248; 83605; 83690; 85025; 85027; 93005; 96361; 96372; 96374; 96375; 99284; J7030

== ENCOUNTER 2024-08-29 14:00 | Emergency (ER) | payer OTHER, SELFPAY ==
[2024-08-29 14:02] VITALS: BP 167/117
[2024-08-29 14:23] LABS: Urine Albumin Negative (Neg - Trace); Urine Bilirubin Negative (Negative); Urine Character Clear (Clear); Urine Color Yellow; Urine Glucose Negative (Negative); Urine Ketone 3+ (Negative); Urine Leukocyte Negative (Negative); Urine Nitrite Negative (Negative); Urine Occult Blood 4+ (Negative); Urine Specific Gravity 1.015 (<1.030); Urine Urobilinogen Negative (Neg - 1+)
[2024-08-29 14:28] LABS: Urine Bacteria Few (Negative); Urine Red Blood Cell 0-2 /HPF (0-2); Urine Squamous Cell 21-25 /LPF (Few); Urine White Cell 0-2 /HPF (0-5)
[2024-08-29 14:45] LABS: HCG, Serum Qualitative Screen Negative
[2024-08-29 14:47] LABS: ALT (SGPT) 36 U/L (0-35); AST (SGOT) 32 U/L (14-36); Albumin 4.8 g/dl (3.5-5.0); Alkaline Phosphatase 54 U/L (38-126); Blood Urea Nitrogen 9 mg/dl (7-17); Calcium 9.6 mg/dl (8.4-10.2); Carbon Dioxide 20 mmol/L (22-30); Chloride 108 mmol/L (98-107); Glucose 126 mg/dl (70-99); Lipase 396 U/L (23-300); Potassium 3.4 mmol/L (3.5-5.1); Sodium 141 mmol/L (135-145); Total Bilirubin 0.8 mg/dl (0.2-1.3); eGFR > 60.00
[2024-08-29 14:51] LABS: % Basophils 0.4 % (0-2); % Eosinophils 0.1 % (0-6); % Immature Granulocytes 0.5 % (0-0.5); % Lymphocytes 12.2 % (20.5-51.1); % Monocytes 5.3 % (1.7-9.3); % Neutrophils 81.5 % (42.2-75.2); Absolute Basophils 0.1 10^3/uL (0-0.2); Absolute Immature Granulocytes 0.1 10^3/uL (0-0.05); Absolute Lymphocytes 1.9 10^3/uL (1.2-3.4); Absolute Monocytes 0.8 10^3/uL (0.1-0.6); Absolute Neutrophils 12.7 10^3/uL (1.4-6.5); Hematocrit 40.3 % (37.0-47.0); Hemoglobin 15.2 g/dL (12.0-16.0); Mean Corp Hgb Conc. 37.7 g/dL (33.0-37.0); Mean Corpuscular Hgb 30.5 pg (27.0-31.0); Mean Corpuscular Volume 80.9 fL (81.0-99.0); Mean Platelet Volume 9.2 fL (7.4-10.4); Nucleated Red Blood Cells % 0 %; Platelet Count 307 10^3/uL (130-400); Red Blood Cell Count 4.98 10^6/uL (4.20-5.40); White Blood Cell Count 15.6 10^3/uL (4.8-10.8)
[2024-08-29 15:42] LABS: Amphetamines Negative (Negative); Barbiturates Negative (Negative); Benzodiazepines Negative (Negative); Buprenorphine Negative (Negative); Cocaine Negative (Negative); Marijuana Positive (Negative); Methadone Negative (Negative); Methamphetamines Negative (Negative); Opiates Negative (Negative); Phencyclidine Negative (Negative); Tricyclic Antidepressants Negative (Negative)
--- NOTE | 2024-08-29 17:54 | ED.GENMED ---
History of Present Illness
<Avinash Cee PA-C - Last Filed: 08/29/24 20:36>
General
Chief Complaint: Abdominal Pain
Source: patient
Exam Limitations: none
Time Seen by Provider: 08/29/24 17:41
History of Present Illness
History of Present Illness:
24-year-old female presents with intractable pain and vomiting and starting around noon today. Her abdominal pain is midline. She has had similar presentations in the past. She was just discharged from this hospital 4 days ago for presumed
cannabis hyperemesis syndrome. She has had full workups including imaging studies EGD. No fever. No other complaints
Past History
<Avinash Cee PA-C - Last Filed: 08/29/24 20:36>
Past History
ED Past Medical History: Psychiatric (anxiety ) and Other (PID, ruptured ovarian cyst, cyclic vomiting)
ED Past Surgical History: Other (wisdom teeth)
Social History
Tobacco: Non-smoker
Alcohol: Occasional
Drug: Marijuana
Personal: Single
Living: with family
Employment: Student
Phy Exam
<Avinash Cee PA-C - Last Filed: 08/29/24 20:36>
Physical Exam
Physical Exam:
General: Uncomfortable appearing female no acute distress HEENT normocephalic atraumatic
Heart: Regular rate and rhythm
Lungs: Clear no wheeze
Abdomen soft mildly diffusely tender no guarding or rebound
Extremities: No
Course
<MANFRED Gil Last Filed: 08/29/24 20:36>
Orders/Labs/Results
Orders:
Orders
08/29/24 14:02
Test Result ONCE
08/29/24 14:13
Complete Blood Count/With Diff Urgent
Comprehensive Metabolic Panel Urgent
HCG, Serum Qualitative Screen Urgent
Comment: Notify provider if positive test present
Lipase Urgent
Urinalysis Reflex To Culture Urgent
Date Specimen was Collected: 08/29/24
Time Specimen was Collected: 14:02
Urine Drug Abuse Screen Urgent
Date Specimen was Collected: 08/29/24
Time Specimen was Collected: 14:02
Urine Microscopic Reflex Cult Urgent
08/29/24 14:29
Add On- LAB Urgent
Tests Added?: UDS
08/29/24 17:47
Haloperidol Lactate [Haldol] 2 mg IV NOW STA
08/29/24 17:48
0.9% Sodium Chloride 1000 ml [Nss] 1,000 ml IV BOLUS
08/29/24 18:06
Electrocardiogram (*1) Urgent
Reason for Study: QTc Monitoring
08/29/24 18:07
EKG- Treatment ONCE
08/29/24 18:33
HYDROmorphone [Dilaudid] 1 mg IV NOW STA
08/29/24 20:23
HYDROmorphone [Dilaudid] 0.5 mg IV NOW STA
Abnormal Lab Results
08/29/24
14:13
WBC 15.6 H 10^3/uL
(4.8-10.8)
MCV 80.9 L fL
(81.0-99.0)
MCHC 37.7 H g/dL
(33.0-37.0)
Abs Immat Gran (auto) 0.1 H 10^3/uL
(0-0.05)
Absolute Neuts (auto) 12.7 H 10^3/uL
(1.4-6.5)
Absolute Monos (auto) 0.8 H 10^3/uL
(0.1-0.6)
Neutrophils % 81.5 H %
(42.2-75.2)
Lymphocytes % 12.2 L %
(20.5-51.1)
Potassium 3.4 L mmol/L
(3.5-5.1)
Chloride 108 H mmol/L
(98-107)
Carbon Dioxide 20 L mmol/L
(22-30)
Glucose 126 H mg/dl
(70-99)
ALT 36 H U/L
(0-35)
Lipase 396 H U/L
(23-300)
Urine Ketones 3+ A
(Negative)
Ur Occult Blood Reflex 4+ A
(Negative)
Urine Bacteria (Reflex) Few A
(Negative)
U Marijuana (THC) Screen Positive H
(Negative)
08/29/24 14:13
08/29/24 14:13
Vital Signs
Initial and Last Documented VS:
Initial Vital Signs
Temp Pulse Resp BP Pulse Ox
97.5 F 82 16 167/117 100
08/29/24 14:02 08/29/24 14:02 08/29/24 14:02 08/29/24 14:02 08/29/24 14:02
Last Documented Vital Signs
Temp Pulse Resp BP Pulse Ox
97.5 F 77 16 151/121 100
08/29/24 14:02 08/29/24 19:45 08/29/24 19:45 08/29/24 19:08 08/29/24 14:02
<Jessica Wolff, DO - Last Filed: 08/29/24 21:21>
Orders/Labs/Results
Orders:
Orders
08/29/24 14:02
Test Result ONCE
08/29/24 14:13
Complete Blood Count/With Diff Urgent
Comprehensive Metabolic Panel Urgent
HCG, Serum Qualitative Screen Urgent
Comment: Notify provider if positive test present
Lipase Urgent
Urinalysis Reflex To Culture Urgent
Date Specimen was Collected: 08/29/24
Time Specimen was Collected: 14:02
Urine Drug Abuse Screen Urgent
Date Specimen was Collected: 08/29/24
Time Specimen was Collected: 14:02
Urine Microscopic Reflex Cult Urgent
08/29/24 14:29
Add On- LAB Urgent
Tests Added?: UDS
08/29/24 17:47
Haloperidol Lactate [Haldol] 2 mg IV NOW STA
08/29/24 17:48
0.9% Sodium Chloride 1000 ml [Nss] 1,000 ml IV BOLUS
08/29/24 18:06
Electrocardiogram (*1) Urgent
Reason for Study: QTc Monitoring
08/29/24 18:07
EKG- Treatment ONCE
08/29/24 18:33
HYDROmorphone [Dilaudid] 1 mg IV NOW STA
08/29/24 20:23
HYDROmorphone [Dilaudid] 0.5 mg IV NOW STA
Abnormal Lab Results
08/29/24
14:13
WBC 15.6 H 10^3/uL
(4.8-10.8)
MCV 80.9 L fL
(81.0-99.0)
MCHC 37.7 H g/dL
(33.0-37.0)
Abs Immat Gran (auto) 0.1 H 10^3/uL
(0-0.05)
Absolute Neuts (auto) 12.7 H 10^3/uL
(1.4-6.5)
Absolute Monos (auto) 0.8 H 10^3/uL
(0.1-0.6)
Neutrophils % 81.5 H %
(42.2-75.2)
Lymphocytes % 12.2 L %
(20.5-51.1)
Potassium 3.4 L mmol/L
(3.5-5.1)
Chloride 108 H mmol/L
(98-107)
Carbon Dioxide 20 L mmol/L
(22-30)
Glucose 126 H mg/dl
(70-99)
ALT 36 H U/L
(0-35)
Lipase 396 H U/L
(23-300)
Urine Ketones 3+ A
(Negative)
Ur Occult Blood Reflex 4+ A
(Negative)
Urine Bacteria (Reflex) Few A
(Negative)
U Marijuana (THC) Screen Positive H
(Negative)
08/29/24 14:13
08/29/24 14:13
Vital Signs
Initial and Last Documented VS:
Initial Vital Signs
Temp Pulse Resp BP Pulse Ox
97.5 F 82 16 167/117 100
08/29/24 14:02 08/29/24 14:02 08/29/24 14:02 08/29/24 14:02 08/29/24 14:02
Last Documented Vital Signs
Temp Pulse Resp BP Pulse Ox
97.5 F 77 16 151/121 100
08/29/24 14:02 08/29/24 19:45 08/29/24 19:45 08/29/24 19:08 08/29/24 14:02
<Avinash Cee PA-C - Last Filed: 08/29/24 20:36>
MDM/Problems Addressed
Differential Diagnosis Includes:
Patient with intractable nausea vomiting with associated abdominal pain very similar to prior presentations. She has had full workups in the past most recently had an EGD while admitted in the hospital. Central cannabis hyperemesis versus viral
illness versus gastroparesis. Will check for electrolyte abnormality.
<Avinash Cee PA-C - Last Filed: 08/29/24 20:36>
*Critical Care Note
Total Time (30-74mins, 75-104mins- exclusive of procedures): Not Applicable
<Avinash Cee PA-C - Last Filed: 08/29/24 20:36>
Update Note
Update Note:
Patient reevaluated multiple times. Given multiple rounds of medication. She has had full workups in the past. No indication for any new workup at this time. Patient wishes to go home. Will advise continued follow-up with GI and TEST CLERK as planned.
Discussed with ED attending
ED Attending Note
<Avinash Cee PA-C - Last Filed: 08/29/24 20:36>
-
Portions of this chart may have been created with voice recognition software.� Occasional wrong word or��sound alike� substitutions may have occurred due to the inherent limitations of voice recognition software.
<Jessica Wolff DO - Last Filed: 08/29/24 21:21>
ED Attending Note
Patient seen and examined by attending physician: Yes
I performed the substantive portion of visit, reviewed & personally made and approve the management plan that is documented in note by myself or ALEJANDRO.: Yes
I performed a history and physical exam of patient and discussed management with resident, I reviewed resident's note and agree with documented findings and plan of care.: Yes
ED Attending Note:
24-year-old female presenting to the emergency department for nausea and vomiting which started at 11 AM. Patient reports she has been having frequent episodes of this in the past year. Has undergone a workup for this, suspected endometriosis
versus hyperemesis cannabinoid syndrome versus gastroparesis. Recent admission on 08/23 to 08/25. Patient did have an EGD at that time, unremarkable. Patient has also had unremarkable abdominal imaging. Patient has also been admitted in the past
to [facility] for the symptoms. Reports generalized abdominal pain. Does admit to marijuana abuse, however notes that she quit after recent admission. Denies fever. Vital signs significant for hypertension, however patient is actively vomiting.
On exam patient is in no acute distress, however is actively retching, no contents. Abdomen is soft, nondistended with generalized nonfocal tenderness. Continue to suspect hyperemesis versus gastroparesis as etiology of symptoms. Patient is
requesting Dilaudid. Will start with Haldol, which has helped in the past. She is otherwise nontoxic, afebrile, without concern for systemic infection. Holding off on any advanced imaging, with low utility to find new acute process.
22:30 -patient has improved overall. Does have leukocytosis, suspected to be reactive. Ultimately feel stable for discharge with continued outpatient supportive therapy.
Discharge Plan
Departure
Patient Disposition: Home (Routine Discharge)
Date of Disposition: 08/29/24
Time of Disposition: 20:35
Patient with high blood pressure during this ER visit?: No
Discharge Problem:
Abdominal pain
Instructions: Abdominal Pain
Prescriptions:
No Action
dicyclomine 20 mg tablet
20 mg PO QID PRN (Reason: abdominal pain) Qty: 30 0RF
pantoprazole [Protonix] 40 mg tablet,delayed release (DR/EC)
40 mg PO DAILY 28 Days Qty: 28 0RF
metoclopramide HCl [Reglan] 10 mg tablet
10 mg PO AC Qty: 30 0RF
Rx Instructions:
30 minutes before meals
ketorolac 10 mg tablet
10 mg PO Q6H PRN (Reason: Pain) 5 Days Qty: 20 0RF
Rx Instructions:
Please do not take with Ibuprofen
Referrals:
Christina Marinelli MD [Primary Care Provider] -
Raúl Colin MD, Resident [Family Provider] -
Activity Restrictions/Additional Instructions:
Continue current plan. Continue to follow-up with GI and TEST CLERK as planned. Return if needed
Interventions
Interventions:
*Risk Screen - Suicide Last Done: 08/29/24 14:02
*General Assessment Last Done: 08/29/24 18:18
*Neglect/Abuse Screening Last Done: 08/29/24 14:02
*ED- Fall Risk Assessment Last Done: 08/29/24 14:02
*ED COVID-19 Vaccine History Last Done: 08/29/24 18:18
IH-Mzqgmn-Osgrsrhbei Assessment Last Done: 08/29/24 19:56
Discharge Date and Time
Print Language: MALAWIAN
[2024-08-29] MEDS: NSS 1000 IV (18:05)
[2024-08-29] MEDS: HALDOL 2 MG IV (18:05)
[2024-08-29] MEDS: DILAUDID 1 MG IV (19:03)
[2024-08-29 19:08] VITALS: BP 151/121
[2024-08-29] MEDS: DILAUDID 0.5 MG IV (20:58)
== END 2024-08-29 23:30 | disposition home or self-care (01) ==
LOC: EMR 14:00
PROVIDERS: Student in an Organized Health Care Education/Training Program; EMERGENCY PHYSICIAN Student in an Organized Health Care Education/Training Program; FAMILY PHYSICIAN Student in an Organized Health Care Education/Training Program; PRIMARYCARE PHYSICIAN Family Medicine
DX: R10.9 Unspecified abdominal pain (principal); R11.2 Nausea with vomiting, unspecified; N73.9 Female pelvic inflammatory disease, unspecified; F41.9 Anxiety disorder, unspecified; Z88.8 Allergy status to other drugs, medicaments and biological substances
CPT/HCPCS: 99284; 96374; 96375; 96361; 96376; 80053; 80306; 81003; 81015; 83690; 84703; 85025

== ENCOUNTER 2024-08-30 11:14 | Inpatient (IN) | payer OTHER, SELFPAY ==
[2024-08-30] VITALS (14 sets, daily range): BP systolic 113–188; BP diastolic 72–125; BMI 18.5
--- NOTE | 2024-08-30 03:19 | EDRN ---
Patient educational diagnostician dacia asking to get pain meds, informed patient provider has to see them first, she asked when the doctor will be in to see her, informed her that the provider is moving as quickly as they can but it is busy
--- NOTE | 2024-08-30 03:57 | EDRN ---
Patient carton stamper pederson again asking when her doctor will be coming in, updated her on status, call pederson in hand mom is at bedside with her.
[2024-08-30] MEDS: NSS 1000 IV (06:04)
[2024-08-30] MEDS: ZOFRAN 4 MG IV ×2 (06:04→23:29)
[2024-08-30] MEDS: HALDOL 2 MG IV (06:04)
--- NOTE | 2024-08-30 06:12 | EDRN ---
Asked Dr. Mendoza about the IV haldol if an EKG needed, was informed she just had one done recently a few days ago and doesn't require another one
[2024-08-30 06:18] LABS: HCG, Serum Qualitative Screen Negative
[2024-08-30 06:36] LABS: ALT (SGPT) 59 U/L (0-35); AST (SGOT) 43 U/L (14-36); Albumin 5.1 g/dl (3.5-5.0); Alkaline Phosphatase 56 U/L (38-126); Blood Urea Nitrogen 8 mg/dl (7-17); Calcium 10.1 mg/dl (8.4-10.2); Carbon Dioxide 13 mmol/L (22-30); Chloride 108 mmol/L (98-107); Estimated Creatinine Clearance 117 ml/min; Glucose 107 mg/dl (70-99); Lipase 326 U/L (23-300); Potassium 3.9 mmol/L (3.5-5.1); Sodium 139 mmol/L (135-145); Total Protein 8.8 g/dl (6.3-8.2); eGFR > 60.00
--- NOTE | 2024-08-30 07:29 | ED.GENMED ---
History of Present Illness
General
Chief Complaint: Abdominal Pain
Time Seen by Provider: 08/30/24 05:28
Past History
Past History
ED Past Medical History: Psychiatric (anxiety ) and Other (PID, ruptured ovarian cyst, cyclic vomiting)
ED Past Surgical History: Other (wisdom teeth)
Social History
Tobacco: Non-smoker
Alcohol: Occasional
Drug: Marijuana
Personal: Single
Living: with family
Employment: Student
Course
Orders/Labs/Results
Orders:
Orders
08/30/24 05:34
Cardiac Monitoring- Treatment ONCE
0.9% Sodium Chloride 1000 ml [Nss] 1,000 ml IV BOLUS
Test Result ONCE
08/30/24 05:36
Haloperidol Lactate [Haldol] 2 mg IV NOW STA
Ondansetron Injectable [Zofran] 4 mg IV NOW STA
08/30/24 05:43
Complete Blood Count/No Diff Urgent
Comprehensive Metabolic Panel Urgent
HCG, Serum Qualitative Screen Urgent
Lipase Urgent
08/30/24 07:26
droPERidol [Inapsine] 1.25 mg IV NOW STA
Abnormal Lab Results
08/30/24
05:43
Chloride 108 H mmol/L
(98-107)
Carbon Dioxide 13 L* mmol/L
(22-30)
Glucose 107 H mg/dl
(70-99)
AST 43 H U/L
(14-36)
ALT 59 H U/L
(0-35)
Total Protein 8.8 H g/dl
(6.3-8.2)
Albumin 5.1 H g/dl
(3.5-5.0)
Lipase 326 H U/L
(23-300)
08/30/24 05:43
Vital Signs
Initial and Last Documented VS:
Initial Vital Signs
Temp Pulse Resp BP Pulse Ox
97.8 F 110 30 170/124 100
08/30/24 02:27 08/30/24 02:27 08/30/24 02:27 08/30/24 02:27 08/30/24 02:27
Last Documented Vital Signs
Temp Pulse Resp BP Pulse Ox
97.8 F 115 28 174/104 100
08/30/24 02:27 08/30/24 07:15 08/30/24 07:15 08/30/24 07:15 08/30/24 07:14
ED Attending Note
-
Portions of this chart may have been created with voice recognition software.� Occasional wrong word or��sound alike� substitutions may have occurred due to the inherent limitations of voice recognition software.
Discharge Plan
Departure
Patient Disposition: Admit
Date of Disposition: 08/30/24
Time of Disposition: 07:29
Admit to: Telemetry
Presentation/result/management discussed w/ accepting MD/DO: Hospitalist
Condition: Fair
Discharge Problem:
Cyclical vomiting
Prescriptions:
No Action
dicyclomine 20 mg tablet
20 mg PO QID PRN (Reason: abdominal pain) Qty: 30 0RF
pantoprazole [Protonix] 40 mg tablet,delayed release (DR/EC)
40 mg PO DAILY 28 Days Qty: 28 0RF
metoclopramide HCl [Reglan] 10 mg tablet
10 mg PO AC Qty: 30 0RF
Rx Instructions:
30 minutes before meals
ketorolac 10 mg tablet
10 mg PO Q6H PRN (Reason: Pain) 5 Days Qty: 20 0RF
Rx Instructions:
Please do not take with Ibuprofen
Referrals:
NONE,* [Family Provider] -
Interventions
Interventions:
*Risk Screen - Suicide Last Done: 08/30/24 02:27
*General Assessment Last Done: 08/30/24 02:47
*Neglect/Abuse Screening Last Done: 08/30/24 02:27
*ED- Fall Risk Assessment Last Done: 08/30/24 02:47
*ED COVID-19 Vaccine History Last Done: 08/30/24 02:47
JE-Xhkazm-Wirskrrbcb Assessment Last Done: 08/30/24 07:14
Discharge Date and Time
Print Language: BERMUDIAN
[2024-08-30] MEDS: INAPSINE 1.25 MG IV (07:42)
[2024-08-30 08:14] LABS: Hematocrit 41.7 % (37.0-47.0); Hemoglobin 15.7 g/dL (12.0-16.0); Mean Corp Hgb Conc. 37.6 g/dL (33.0-37.0); Mean Corpuscular Hgb 30.3 pg (27.0-31.0); Mean Corpuscular Volume 80.3 fL (81.0-99.0); Platelet Count 272 10^3/uL (130-400); Red Blood Cell Count 5.19 10^6/uL (4.20-5.40); Red Cell Dist. Width 12.1 % (11.5-14.5); White Blood Cell Count 12.1 10^3/uL (4.8-10.8)
--- NOTE | 2024-08-30 08:58 | HPS.HSE ---
Family Physician
-
Family Physician: * NONE
Chief Complaint
-
Nausea, vomiting, abdominal pain
History of Present Illness
24-year-old female with past medical history of cannabis hyperemesis syndrome, PID, endometriosis, anxiety disorder presents to the hospital reporting intractable nausea, vomiting and abdominal pain. She had a recent hospital admission for similar
complaints, 1 week ago with full GI workup including EGD which was unremarkable . Patient was seen in the ER yesterday evening for vomiting and abdominal pain, and was discharged home after getting a dose of Haldol and Dilaudid. Patient's symptoms
have worsened after going home and she is back to the ER. Patient's father at bedside reports that she had multiple hospital admissions in the past year for similar complaint. Patient has been using recreational marijuana, last use was 2 weeks
ago. ER workup�Labs with WBC 12.1, hemoglobin 15.7, bicarb 13, AST 43, ALT 59, albumin 5.1, lipase 326, beta-hCG negative. In the ED was given 1 L D5W with sodium bicarb, haloperidol, Zofran, droperidol with improvement to her symptoms.
Medical History
Past Medical History
Past Medical History: Reports Other (Anxiety, cyclical vomiting syndrome, PID)
Additional Past Medical History:
Anxiety, endometriosis, PID, cannabis hyperemesis syndrome
Past Surgical History: Reports None
Social History
Alcohol: Occasional
Drug: Marijuana
Personal: Single
Living: With Family
Family History
Family History: Adopted
Allergies / Home Medications
Allergies reflects when Allergies were last updated in [facility].
Home Medications with original date entered in [facility]
Allergy/Medication List:
Allergies
Allergy/AdvReac Type Severity Reaction Status Date / Time
hydroxyzine [From Atarax] Allergy Mild Rash Verified 08/30/24 02:30
Home Medications
dicyclomine 20 mg tablet 20 mg PO QID PRN abdominal pain #30 tabs 08/22/24
pantoprazole 40 mg tablet,delayed release (Protonix) 40 mg PO DAILY 4 weeks #28 tabs 08/22/24
ketorolac 10 mg tablet 10 mg PO Q6H PRN Pain 5 days #20 tabs 08/25/24
metoclopramide HCl 10 mg tablet (Reglan) 10 mg PO AC #30 tabs 08/25/24
Control Pill 1 tab PO DAILY 08/30/24
Review of Systems
-
A 12 point ROS was completed and negative except as noted: Yes
Physical Exam
Vital Signs
Vital Signs
Temp Pulse Resp BP Pulse Ox
97.8 F 115 28 174/104 100
08/30/24 02:27 08/30/24 07:15 08/30/24 07:15 08/30/24 07:15 08/30/24 07:14
Physical Exam
General: Pain
HEENT: NormoCephalic, Anicteric and Moist mucous membranes
Respiratory: Clear
Cardiac: S1/S2, Regular Rhythm and Tachycardia
GI: Soft, Normal Bowel Sounds and Tender
Skin: Warm and Dry
Neuro: Awake, Alert, Oriented and AO x 3
Laboratory Results
-
08/30/24 05:43
08/30/24 05:43
Laboratory Results
Total Bilirubin 1.0 mg/dl (0.2-1.3) 08/30/24 05:43
AST 43 U/L (14-36) H 08/30/24 05:43
ALT 59 U/L (0-35) H 08/30/24 05:43
Alkaline Phosphatase 56 U/L (38-126) 08/30/24 05:43
Lipase 326 U/L (23-300) H 08/30/24 05:43
Impression/Plan
-
IMPRESSION:
24-year-old female with history of cannabis hyperemesis syndrome, endometriosis, PID, anxiety admitted for intractable nausea/vomiting/abdominal pain.
PLAN:
#Intractable nausea/vomiting/abdominal pain
Likely due to cannabis hyperemesis syndrome
History of multiple hospitalizations in the past year
Continue IV fluids�D5 with bicarb
Antiemetics with droperidol
Trend BMP
Check magnesium, phosphorus a.m.
Continue telemetry
#High anion gap metabolic acidosis
#Ketonuria
Likely due to dehydration and starvation
AG�18
Continue IV fluids�D5W with bicarb
Continue antiemetics
Advance diet as tolerated
#Transaminitis
Mild, AST�43, ALT�59
Likely due to dehydration or OCP use
Will monitor LFTs for now
#Elevated lipase
Lipase�326
Will monitor for now
Consider CT scan if symptoms not improving
Patient's father prefer to hold off for CT scan
#Leukocytosis
History of persistent elevation in WBC count
Patient is afebrile
Likely stress-induced
Will monitor for now, monitor temperature curve
#DVT prophylaxis�Lovenox subcu
Full code
Diet�clear liquids for now, advance as tolerated
[2024-08-30] MEDS: SODIUM BICARBONATE 1050 MEQ IV ×2 (13:10→23:34)
--- NOTE | 2024-08-30 13:25 | W.PN.UPDATE ---
Update Note
Progress Note Update
24-year-old female with CVS/hyperemesis syndrome, endometriosis, PID, malnutrition, on control pill who presented to the hospital with the complaint of intractable nausea and vomiting. Patient was seen in the emergency department on 08/29 for
the same issue. Her symptoms started around noon yesterday with abdomen pain at the midline and intractable nausea and vomiting. States she has had multiple occurrences of this with most recent discharge from the hospital 4 days ago related to
presumed hyperemesis syndrome. Underwent workup for organic GI illness, had negative EGD, no signs of infectious etiologies. Was discharged from hospital and felt okay until symptoms recurred. Denies recent marijuana use, has not used in 2 weeks
per her history. Her father was at the bedside and provided supplemental history stating that this is the fifth the sixth time she has been hospitalized for this issue over the last 12 months at either here or at [facility] where she
attends college. States that previous occurrences have felt the exact same as this with midline abdomen pain and intractable nausea vomiting. Tried a warm shower/bath prior that did not help. Home antiemetics were also not beneficial. AFVSS
through ED course though did have tachycardia on arrival that improved. Labs with WBC 12.1, hemoglobin 15.7, bicarb 13, AST 43, ALT 59, albumin 5.1, lipase 326, beta-hCG negative. In the ED was given 1 L D5W with sodium bicarb, haloperidol,
Zofran, droperidol with improvement to her symptoms.
On exam she is quite thin with signs of malnourishment. No acute distress, AO x 4. No FND. Unremarkable cardiopulmonary exam. Mild mid abdomen tenderness though no peritoneal signs. No edema. Moist mucous membranes
Intractable nausea and vomiting. Likely due to cannabis hyperemesis/cyclic vomiting syndrome. 5-6 hospitalizations in last year for this issue. Will continue with maintenance IV fluids, antiemetics with droperidol as needed, and encourage oral
intake as she improves. Will consider starting nightly tricyclic antidepressant for prophylaxis, indicated for >3-4 hospitalizations per calendar year. Trend BMP/mag/Phos. Monitor on telemetry for signs of QTc prolongation. Encourage abstinence
from cannabinoids
High anion gap metabolic acidosis. Likely starvation ketoacidosis and dehydration. Serum bicarb 13 on BMP with anion gap 18. Received IV fluids with D5 and bicarb in the ED. Will continue D5W with 1 amp bicarb at 100 mL/h and trend BMP. Plan to
discontinue IV bicarbonate additive when BMP bicarb >17. Encourage p.o. intake with antiemetics
Elevated lipase. Suspect that this is not true pancreatitis. Lipase mildly elevated, usually close to 3 times UNL when true pancreatitis. Patient and her father preferred to hold off on CT scan due to frequent CTs over the last year. Will
monitor abdomen on supportive IVF and antiemetics. Monitor BUN and hematocrit. Consider CT scan if not improving with supportive care
Leukocytosis. Likely stress response from intractable N/V. Previous labs with persistent elevation in WBC here. Will trend CBC and temperature curve off of antibiotics for now
Transaminitis. Mild at <2 X UNL. Will monitor LFTs for now and consider abdomen ultrasound if worsening. Possibly related to control
DVT prophylaxis with SQ Lovenox
CLD and advance as tolerated
Full code
I will be admitting Nora Forbes to telemetry. She is at high risk for ongoing morbidity due to intractable nausea and vomiting with starvation ketoacidosis. She will require intensive monitoring of her BMP and electrolytes, titration of her
antiemetic regimen. I have discussed this case with the ED attending. I have discussed this case with the resident and agree with all documentation unless otherwise specified. 47 minutes spent on admission.
See resident H&P for more detail when available
--- NOTE | 2024-08-30 15:52 | CHAP ---
Nora was resting quietly; she welcomed the visit and prayer. Emotional and spiritual support provided.
[2024-08-30] MEDS: TORADOL 15 MG IV (23:28)
[2024-08-31] MEDS: ATIVAN 0.5 MG PO (02:06)
[2024-08-31] MEDS: BENTYL 20 MG PO ×4 (02:06→14:39)
[2024-08-31 03:24] VITALS: BP 162/102
[2024-08-31] MEDS: ZOFRAN 4 MG IV (06:12)
[2024-08-31 07:00] VITALS: BP 155/116
[2024-08-31] MEDS: NON-FORMULARY ITEM 1 TABLET PO (07:56)
[2024-08-31 08:29] LABS: ALT (SGPT) 65 U/L (0-35); AST (SGOT) 39 U/L (14-36); Albumin 4.6 g/dl (3.5-5.0); Alkaline Phosphatase 56 U/L (38-126); Blood Urea Nitrogen 2 mg/dl (7-17); Calcium 9.5 mg/dl (8.4-10.2); Carbon Dioxide 23 mmol/L (22-30); Chloride 103 mmol/L (98-107); Estimated Creatinine Clearance 117 ml/min; Glucose 134 mg/dl (70-99); Lipase 320 U/L (23-300); Magnesium 1.7 mg/dl (1.6-2.3); Phosphorus 2.8 mg/dl (2.5-4.5); Potassium 3.4 mmol/L (3.5-5.1); Sodium 136 mmol/L (135-145); Total Bilirubin 0.8 mg/dl (0.2-1.3); Total Protein 7.6 g/dl (6.3-8.2); eGFR > 60.00
[2024-08-31] MEDS: KLOR-CON 40 MEQ PO (09:14)
[2024-08-31 09:26] LABS: % Basophils 0.2 % (0-2); % Immature Granulocytes 0.3 % (0-0.5); % Lymphocytes 8.6 % (20.5-51.1); % Monocytes 3.7 % (1.7-9.3); % Neutrophils 87.2 % (42.2-75.2); Absolute Lymphocytes 1.1 10^3/uL (1.2-3.4); Absolute Monocytes 0.5 10^3/uL (0.1-0.6); Absolute Neutrophils 11.2 10^3/uL (1.4-6.5); Hematocrit 40.5 % (37.0-47.0); Hemoglobin 15.2 g/dL (12.0-16.0); Mean Corp Hgb Conc. 37.5 g/dL (33.0-37.0); Mean Corpuscular Hgb 30.5 pg (27.0-31.0); Mean Corpuscular Volume 81.3 fL (81.0-99.0); Mean Platelet Volume 10.4 fL (7.4-10.4); Nucleated Red Blood Cells % 0 %; Platelet Count 276 10^3/uL (130-400); Red Blood Cell Count 4.98 10^6/uL (4.20-5.40); Red Cell Dist. Width 12.1 % (11.5-14.5); White Blood Cell Count 12.8 10^3/uL (4.8-10.8)
[2024-08-31] MEDS: INAPSINE 0.625 MG IV ×2 (10:04→17:06)
[2024-08-31] MEDS: SODIUM BICARBONATE 1050 MEQ IV (10:06)
[2024-08-31 11:00] VITALS: BP 165/114
[2024-08-31] MEDS: OFIRMEV 100 IV ×2 (11:41→17:07)
--- NOTE | 2024-08-31 11:48 | CM ---
Initial assessment completed. Recent admission (08/24-08/25) for abdominal pain, returned to ED on 08/29, discharged same day, now returning on 08/30.
Patient is a 24-year-old female with past medical history of cannabis hyperemesis syndrome, PID, endometriosis, anxiety disorder presents to the hospital reporting intractable nausea, vomiting and abdominal pain.
Patient resides w/ mother, father and brother in a 2STH. Independent in all areas, no report of DME. No VN hx.
Address, point of contact and insurance verified
PCP: Patient is seen at residency clinic
Pharmacy: [facility]
Plan: Home, no needs when stable
--- NOTE | 2024-08-31 12:34 | W.PN.HOSP.TC ---
Today's Communication/Plan
-
Obtain ECG to assess QTc
Droperidol and Zofran IV as needed
Dicyclomine 4 times daily as needed
Standing Tylenol IV every 6 hours
Start amitriptyline nightly
Advance diet as tolerated
Assessment / Plan
Assessment / Plan
#Cyclic vomiting syndrome/cannabis hyperemesis syndrome
-Presents as intractable nausea and vomiting with abdomen pain
-States this is hospitalization 5-6 over the last 12 calendar months
-Patient stopped using cannabis roughly 2 weeks prior to this hospital stay
-Some improvement in nausea with droperidol and Zofran IV
-Currently on clear liquids, tolerating small sips
Plan
-Serial ECG to assess QTc interval
-Continue as needed IV antiemetics for nausea
-Continue dicyclomine PRN and IV Tylenol Q6 for abdomen pain
-Start amitriptyline 25 mg nightly for maintenance
-CLD for now, ADAT
-IV D5W + HCO3
#Starvation ketoacidosis
#HAGMA
-Due to intractable nausea and vomiting, bicarb 13 on BMP with AG 18 and ketonuria on arrival
-Has since resolved with D5W and bicarb
-Trend BMP
#Hypokalemia
-Secondary to above issues
-Potassium 3.4 today, not tolerating KCl powder
-Ordered 40 mEq of IV KCl
#Transaminitis
-Mild, AST�43, ALT�59
-Likely due to dehydration or OCP use
-Will monitor LFTs for now
#Elevated lipase
-Presented with abdomen pain, lipase 326; low suspicion for acute pancreatitis
-Patient always with similar abdomen pain at time of CVS flare, lipase <3 X UNL
-Patient and her father would prefer to avoid CT, has had multiple CT scans recently
-Low threshold to get CT of abdomen pain worsens or LFTs uptrend
#Leukocytosis
-History of persistent elevation in WBC count
-Likely stress-induced with component of hemoconcentration
-Will monitor for now, monitor temperature curve
DVT prophylaxis�Lovenox subcu
Diet�clear liquids for now, advance as tolerated
Full code
Anticipated Discharge: > 48 hours
Subjective/Interval History
-
Date of Service: August 31, 2024
Seen and examined at the bedside. No acute events reported overnight. Slightly tachycardic this morning secondary to abdomen pain though otherwise stable, on room air, afebrile
White cell count downtrending with IVF. Patient complaining of midline abdomen pain that is severe. She states that this feels exactly the same as previous episodes of CVS, not currently worse than previous. She states that on other
hospitalizations that Dilaudid helped with the pain. Father at bedside, him and daughter are in agreement at trying to abstain from opiates
She denies other complaints this morning. Is tolerating small sips of clears without vomiting
Objective Data
-
Labs:
Laboratory Results
08/31/24
07:22
WBC 12.8 H
Hgb 15.2
Hct 40.5
Plt Count 276
Sodium 136
Potassium 3.4 L
Chloride 103
Carbon Dioxide 23
BUN 2 L
Creatinine 0.6
Glucose 134 H
Calcium 9.5
Total Bilirubin 0.8
AST 39 H
ALT 65 H
Alkaline Phosphatase 56
Vital Signs:
Vital Signs
Temp Pulse Resp BP Pulse Ox
99.1 F 103 22 165/114 100
08/31/24 11:00 08/31/24 11:00 08/31/24 11:00 08/31/24 11:00 08/31/24 11:00
I&O
08/30/24 08/31/24 09/01/24
06:59 06:59 06:59
Intake Total 2280 / 2280
Balance 2279
Review of Systems
-
History Source: Patient
All other systems: Reviewed and negative
Physical Exam
-
General: Well Developed, Appears in Distress, Pain and Cachectic
HEENT: Normocephalic, Atraumatic, Moist Mucous Membranes and Anicteric
Respiratory: Clear to Auscultation and Non Labored Respirations
Cardiac: Regular Rhythm, S1/S2 and Tachycardic; Negative Murmur, Rub or Gallop
GI: Soft, Nondistended, Normal Bowel Sounds and Tender (mild tenderness at midline, supraumbilical)
Musculoskeletal: No Clubbing, No Cyanosis and No Edema
Skin: Warm and Dry; Negative Rash
Neuro: AO x 3 and Nonfocal/Grossly Intact
Psych: Calm
Data Reviewed
-
Labs: Labs Reviewed by me, Discussed with Patient and Discussed with Family
[2024-08-31] MEDS: KCL 270 MEQ IV (13:38)
[2024-08-31 15:00] VITALS: BP 172/106
[2024-08-31 19:47] VITALS: BP 134/86
[2024-08-31] MEDS: KLOR-CON PO (20:15)
[2024-08-31] MEDS: KCL 160 MEQ IV (20:22)
[2024-08-31] MEDS: ELAVIL 25 MG PO (21:48)
[2024-08-31 23:26] VITALS: BP 127/75
[2024-09-01] MEDS: OFIRMEV 100 IV ×2 (00:16→05:11)
[2024-09-01] MEDS: INAPSINE 0.625 MG IV ×4 (01:53→19:47)
[2024-09-01] MEDS: BENTYL 20 MG PO ×2 (01:57→19:48)
[2024-09-01] MEDS: TORADOL 15 MG IV (02:31)
[2024-09-01] MEDS: ZOFRAN 4 MG IV (04:18)
[2024-09-01 04:25] VITALS: BP 169/125
[2024-09-01] MEDS: APRESOLINE 5 MG IV ×2 (04:25→11:00)
[2024-09-01 07:00] VITALS: BP 171/116
[2024-09-01] MEDS: NON-FORMULARY ITEM 1 TABLET PO (07:30)
[2024-09-01 07:42] LABS: % Basophils 0.4 % (0-2); % Immature Granulocytes 0.3 % (0-0.5); % Lymphocytes 12.7 % (20.5-51.1); % Neutrophils 78.6 % (42.2-75.2); Absolute Lymphocytes 1.3 10^3/uL (1.2-3.4); Absolute Monocytes 0.8 10^3/uL (0.1-0.6); Absolute Neutrophils 7.8 10^3/uL (1.4-6.5); Hematocrit 42.5 % (37.0-47.0); Hemoglobin 15.9 g/dL (12.0-16.0); Mean Corp Hgb Conc. 37.4 g/dL (33.0-37.0); Mean Corpuscular Hgb 30.3 pg (27.0-31.0); Mean Corpuscular Volume 81.1 fL (81.0-99.0); Nucleated Red Blood Cells % 0 %; Platelet Count 322 10^3/uL (130-400); Red Blood Cell Count 5.24 10^6/uL (4.20-5.40); Red Cell Dist. Width 11.9 % (11.5-14.5)
[2024-09-01] MEDS: SODIUM BICARBONATE 1050 MEQ IV (07:46)
[2024-09-01 08:31] LABS: ALT (SGPT) 63 U/L (0-35); AST (SGOT) 31 U/L (14-36); Albumin 4.6 g/dl (3.5-5.0); Alkaline Phosphatase 59 U/L (38-126); Blood Urea Nitrogen 3 mg/dl (7-17); Calcium 9.8 mg/dl (8.4-10.2); Carbon Dioxide 21 mmol/L (22-30); Chloride 102 mmol/L (98-107); Direct Bilirubin 0.4 mg/dl (0.0-0.4); Estimated Creatinine Clearance 100 ml/min; Glucose 124 mg/dl (70-99); Magnesium 1.8 mg/dl (1.6-2.3); Phosphorus 2.6 mg/dl (2.5-4.5); Potassium 3.1 mmol/L (3.5-5.1); Sodium 137 mmol/L (135-145); Total Bilirubin 1.1 mg/dl (0.2-1.3); eGFR > 60.00
[2024-09-01 10:05] VITALS: BMI 18.5
[2024-09-01 11:00] VITALS: BP 182/126
[2024-09-01 15:00] VITALS: BP 177/30
--- NOTE | 2024-09-01 15:52 | W.PN.HOSP.TC ---
Today's Communication/Plan
-
ADAT
HIDA - refused midway
Supportive care
TRANSFORMATION ARCHITECT consulted
Assessment / Plan
Assessment / Plan
#Cyclic vomiting syndrome/cannabis hyperemesis syndrome
-Presents as intractable nausea and vomiting with abdomen pain
-States this is hospitalization 5-6 over the last 12 calendar months
-Patient stopped using cannabis roughly 2 weeks prior to this hospital stay
-Some improvement in nausea with droperidol and Zofran IV
-Currently on clear liquids, tolerating small sips
Plan
-Serial ECG to assess QTc interval
-Continue as needed IV antiemetics for nausea
-Continue dicyclomine PRN and IV Tylenol Q6 for abdomen pain
-Start amitriptyline 25 mg nightly for maintenance
-CLD for now, ADAT
#Abdominal pain
- Most likely secondary to above although anxiety may be large component
� See plan above
� HIDA scan ordered to assess any gallbladder issues although patient refused mid study.
� Patient has history of endometriosis, with mild spotting for quite some time�Guynn consulted
� If continued issues with no improvement, may benefit from psychiatry consult
�Mother at this time would like to avoid further imaging secondary to radiation. Has had multiple CT scans in the past as per mother.
#Starvation ketoacidosis
#HAGMA
-Due to intractable nausea and vomiting,
� Resolved
� Continue to monitor
#Hypokalemia
-Secondary to above issues
�Monitor and replete
#Transaminitis
-Mild, AST�43, ALT�59
-Likely due to dehydration or OCP use
-Will monitor LFTs for now
� Hepatitis panel negative
#Elevated lipase
-Presented with abdomen pain, lipase 326; low suspicion for acute pancreatitis
- Probably secondary to vomiting
#Leukocytosis
-History of persistent elevation in WBC count
-Likely stress-induced with component of hemoconcentration
-Will monitor for now, monitor temperature curve
#hx of ?PID
-unclear dx - was just treated empirically although official diagnosis
DVT prophylaxis�Lovenox subcu
Diet�clear liquids for now, advance as tolerated
Full code
Total time spent on today's encounter was 50 minutes which included time spent in counseling the patient/family regarding diagnosis and treatment plan as listed above, goals of care, and symptom management. Case was discussed with nursing staff,
specialists, and care coordinators/case management. All labs and imaging personally reviewed by me. Remainder the time spent in detailed review of previous records, lab data, imaging, and other medical provider documentation.
Anticipated Discharge: > 48 hours
Subjective/Interval History
-
Date of Service: September 01, 2024
still with nonspecific abdominal pain
Objective Data
-
Labs:
Laboratory Results
09/01/24
06:52
WBC 10.0
Hgb 15.9
Hct 42.5
Plt Count 322
Sodium 137
Potassium 3.1 L
Chloride 102
Carbon Dioxide 21 L
BUN 3 L
Creatinine 0.7
Glucose 124 H
Calcium 9.8
Total Bilirubin 1.1
AST 31
ALT 63 H
Alkaline Phosphatase 59
Vital Signs:
Vital Signs
Temp Pulse Resp BP Pulse Ox
97.7 F 123 24 177/30 100
09/01/24 15:00 09/01/24 15:00 09/01/24 15:00 09/01/24 15:00 09/01/24 15:00
I&O
08/31/24 09/01/24 09/02/24
06:59 06:59 06:59
Intake Total 2280 / 2280 1760 / 1760
Balance 2280 / 2280 1760 / 1760
Review of Systems
-
History Source: Patient
All other systems: Reviewed and negative
Physical Exam
-
General: Well Developed, Appears in Distress, Pain and Cachectic
HEENT: Normocephalic, Atraumatic, Moist Mucous Membranes and Anicteric
Respiratory: Clear to Auscultation and Non Labored Respirations
Cardiac: Regular Rhythm, S1/S2 and Tachycardic; Negative Murmur, Rub or Gallop
GI: Soft, Nondistended, Normal Bowel Sounds and Tender (mild tenderness at midline, supraumbilical)
Musculoskeletal: No Clubbing, No Cyanosis and No Edema
Skin: Warm and Dry; Negative Rash
Neuro: AO x 3 and Nonfocal/Grossly Intact
Psych: Calm
Data Reviewed
-
Ultrasound: Report Reviewed by me
Labs: Labs Reviewed by me, Discussed with Patient and Discussed with Family
[2024-09-01] MEDS: KCL 270 MEQ IV (16:42)
[2024-09-01] MEDS: TRANDATE 10 MG IV (19:47)
[2024-09-01 19:53] VITALS: BP 177/137
[2024-09-01] MEDS: ELAVIL 25 MG PO (21:38)
[2024-09-01 22:41] VITALS: BP 134/89
[2024-09-02 03:11] VITALS: BP 116/81
[2024-09-02 07:00] VITALS: BP 123/85
[2024-09-02 08:01] LABS: Hematocrit 42.5 % (37.0-47.0); Hemoglobin 15.7 g/dL (12.0-16.0); Mean Corp Hgb Conc. 36.9 g/dL (33.0-37.0); Mean Corpuscular Hgb 30.4 pg (27.0-31.0); Mean Corpuscular Volume 82.4 fL (81.0-99.0); Mean Platelet Volume 9.7 fL (7.4-10.4); Platelet Count 297 10^3/uL (130-400); Red Blood Cell Count 5.16 10^6/uL (4.20-5.40); Red Cell Dist. Width 12.4 % (11.5-14.5); White Blood Cell Count 8.2 10^3/uL (4.8-10.8)
[2024-09-02 08:35] LABS: ALT (SGPT) 53 U/L (0-35); AST (SGOT) 24 U/L (14-36); Albumin 4.1 g/dl (3.5-5.0); Alkaline Phosphatase 52 U/L (38-126); Blood Urea Nitrogen 10 mg/dl (7-17); Calcium 9.8 mg/dl (8.4-10.2); Carbon Dioxide 22 mmol/L (22-30); Chloride 105 mmol/L (98-107); Estimated Creatinine Clearance 100 ml/min; Glucose 82 mg/dl (70-99); Magnesium 1.8 mg/dl (1.6-2.3); Potassium 3.9 mmol/L (3.5-5.1); Sodium 136 mmol/L (135-145); Total Bilirubin 0.9 mg/dl (0.2-1.3); Total Protein 7.1 g/dl (6.3-8.2); eGFR > 60.00
[2024-09-02] MEDS: NON-FORMULARY ITEM 1 TABLET PO (09:21)
--- NOTE | 2024-09-02 12:37 | W.PN.HOSP.TC ---
Addendum entered and electronically signed by Tapan Swain MD 09/03/24 15:26:
[id number]
Original Note:
Today's Communication/Plan
-
LRD, gastroparesis diet
repeat AST/ALT outpt
gastroparesis diet until cleared by GI; trial of small frequent meals with low fat, low fiber, avoid fizzy soda
absolute Cannibis abstinence for several months
F/u Tank Car Inspector and GI outpt
Symptomatic control
Of note: Droperidol helps patient quite effectively inpatient - can consider for ed visits if needed
Assessment / Plan
Assessment / Plan
#Cyclic vomiting syndrome/cannabis hyperemesis syndrome - improved/resolved today
-Presents as intractable nausea and vomiting with abdomen pain
-States this is hospitalization 5-6 over the last 12 calendar months
-Patient stopped using cannabis roughly 2 weeks prior to this hospital stay
-Some improvement in nausea with droperidol and Zofran IV
-LRD, gastroparesis diet
Plan
-Serial ECG to assess QTc interval
-Continue as needed IV antiemetics for nausea
-Continue dicyclomine PRN and IV Tylenol Q6 for abdomen pain
-Start amitriptyline 25 mg nightly for maintenance
-LRD
#Abdominal pain
- Most likely secondary to above although anxiety may be large component
� See plan above
� HIDA scan ordered to assess any gallbladder issues although patient refused mid study. Appears benign regardless with low risk and with no RUQ tendernessness
� Patient has history of endometriosis, with mild spotting for quite some time�can follow up with Tank Car Inspector; Patient has midepigastric issues that are intermittent, not lower abdomen.
� Psychiatry consult as anxiety may have some component in this as symptoms do parallel level of stress although difficult to be certain
�Mother at this time would like to avoid further imaging secondary to radiation. Has had multiple CT scans in the past as per mother.
#Starvation ketoacidosis
#HAGMA
-Due to intractable nausea and vomiting,
� Resolved
� Continue to monitor
#Hypokalemia
-Secondary to above issues
�Monitor and replete
#Transaminitis
-Mild, AST�43, ALT�59
-Likely due to dehydration or OCP use
-Will monitor LFTs for now
� Hepatitis panel negative
-improving
f/u outpt
#Elevated lipase
-Presented with abdomen pain, lipase 326; low suspicion for acute pancreatitis
- Probably secondary to vomiting
#Leukocytosis
-History of persistent elevation in WBC count
-Likely stress-induced with component of hemoconcentration
-Will monitor for now, monitor temperature curve
#hx of ?PID
-unclear dx - was just treated empirically although no official diagnosis
DVT prophylaxis�Lovenox subcu
Diet�LRD
Full code
More than 30 minutes spent in discharge including
Final examination of the patient
Summarizing hospital stay
Instructions for continuing care to all relevant caregivers
Preparation of discharge records, prescriptions, and referral forms
Total time spent (in minutes): 36
Anticipated Discharge: Today
Subjective/Interval History
-
Date of Service: September 02, 2024
Pain resolved
Objective Data
-
Labs:
Laboratory Results
09/02/24
07:22
WBC 8.2
Hgb 15.7
Hct 42.5
Plt Count 297
Sodium 136
Potassium 3.9 D
Chloride 105
Carbon Dioxide 22
BUN 10
Creatinine 0.7
Glucose 82
Calcium 9.8
Total Bilirubin 0.9
AST 24
ALT 53 H
Alkaline Phosphatase 52
Vital Signs:
Vital Signs
Temp Pulse Resp BP Pulse Ox
98.1 F 108 16 123/85 96
09/02/24 07:00 09/02/24 07:00 09/02/24 07:00 09/02/24 07:00 09/02/24 07:00
I&O
09/01/24 09/02/24 09/03/24
06:59 06:59 06:59
Intake Total 1759 480 / 480
Balance 1759 480 / 480
Review of Systems
-
History Source: Patient
All other systems: Reviewed and negative
Physical Exam
-
General: Well Developed, Appears in Distress, Pain and Cachectic
HEENT: Normocephalic, Atraumatic, Moist Mucous Membranes and Anicteric
Respiratory: Clear to Auscultation and Non Labored Respirations
Cardiac: Regular Rhythm, S1/S2 and Tachycardic; Negative Murmur, Rub or Gallop
GI: Soft, Nondistended, Normal Bowel Sounds and Tender (mild tenderness at midline, supraumbilical)
Musculoskeletal: No Clubbing, No Cyanosis and No Edema
Skin: Warm and Dry; Negative Rash
Neuro: AO x 3 and Nonfocal/Grossly Intact
Psych: Calm
Data Reviewed
-
Ultrasound: Report Reviewed by me
Labs: Labs Reviewed by me, Discussed with Patient and Discussed with Family
--- NOTE | 2024-09-02 14:56 | W.DS.TRANS ---
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
-
Discharge Instructions:
Discharge Diagnosis/Procedures Low residue diet, gastroparesis
Diet Other diet,Low Fiber
Additional Diets gastroparesis diet until cleared by GI; trial of
small frequent meals with low fat, low fiber,
avoid fizzy soda
absolute Cannibis abstinence for several months
Activity As tolerated
Blood Work repeat AST/ALT outpatient
Others Tests As per Gynecology and Gastroenterology
outpatient
Instructions:
Stand-Alone Forms:
Changes to Home Medications: No
Discharge Medications:
DC Medications w/original date entered in [employer]
dicyclomine 20 mg tablet 20 mg PO QID PRN abdominal pain #30 tabs 08/22/24
pantoprazole 40 mg tablet,delayed release (Protonix) 40 mg PO DAILY 4 weeks #28 tabs 08/22/24
ketorolac 10 mg tablet 10 mg PO Q6H PRN Pain 5 days #20 tabs 08/25/24
metoclopramide HCl 10 mg tablet (Reglan) 10 mg PO AC #30 tabs 08/25/24
Control Pill 1 tab PO DAILY BC 08/30/24
Home Medication Changes
no
Pending Results: No
[2024-09-02 15:00] VITALS: BP 126/85
--- NOTE | 2024-09-02 15:02 | CON.MD ---
Consultation - Medical
-
24yr old F presenting with intractable n/v w/ abdominal pain, multiple similar hospitalizations in past year. Pt is regular cannabis user, though stopped using about 2 weeks ago. Pt has hx of endometriosis, however this does not appear to be the
cause of current sxs. Pt with mild transaminitis (improving), mild lipase elevation, leukocytosis - improving steadily since admission, was able to tolerate intake today.
Psychiatry consulted due to concerns of possible anxiety component given multiple similar presentations in recent past. Pt reports some hx of anxiety however describes it as in context of stressors and generally is manageable, can have times where
anxiety is more difficult to manage but denies acute disruptive anxiety on a regular basis. Denies anxiety or mood changes as present prior to physical sxs starting - says that generally starts having abdominal pain first, described as sharp and
severe, can feel anxious when this is happening because pain makes breathing difficulty due to muscles tensing. Pt notes that at times when she is able to 'breathe through the pain' it can help get through it, says mother can be helpful with this at
times as well. Pt reports that nausea & vomiting will generally follow the pain after some time and that she feels nauseous due to the cramps/pain in her stomach - once nausea/vomiting starts however it seems that this then becomes cyclical and/or
intractable.
Pt has GI apt tomorrow for gastroparesis assessment. Has had several imaging studies done thus far, wnl.
MSE: female, good eye contact, cooperative, pleasant. Speech is nl rate & rhythm. Mood is ok, affect appropriate. Denies si/hi/avh/delusions. AAOx3. Memory not formally tested. Insight/judgement good.
Unspecified anxiety
Recommended pt look into lamaze technique for breathing through pain when it happens and to have a few reliable videos on hand to quickly access on her phone when cramps or pain start - pt is also starting diet changes to assess for possible causes
there
It's unlikely that these sxs are due to anxiety, at least not based on the information thus far - it's unlikely to be cyclical vomiting due to cannabis use either as the consistent presentation of pain episodes prior to n/v and the intermittent
nature of these episodes is not typically seen. Nonetheless cannot be ruled out and pt is aware of importance of avoiding cannabis at this time, in particular as it can take many months before improvement is seen following discontinuation of use.
--- NOTE | 2024-09-02 15:15 | CM ---
Patient stable for d/c today
No CM needs identified
Family will transport home
Plan: Home, no needs
== END 2024-09-02 16:06 | disposition home or self-care (01) | DRG 394 ==
LOC: 4 WEST ACU 11:14
PROVIDERS: Student in an Organized Health Care Education/Training Program; ADMITTING PHYSICIAN Internal Medicine; ATTENDING PHYSICIAN Internal Medicine; CONSULT PHYSICIAN Psychiatry & Neurology Psychiatry; EMERGENCY PHYSICIAN Emergency Medicine
DX: R11.15 Cyclical vomiting syndrome unrelated to migraine (principal); E46 Unspecified protein-calorie malnutrition; E87.20 Acidosis, unspecified; R64 Cachexia; Z68.1 Body mass index [BMI] 19.9 or less, adult; F12.90 Cannabis use, unspecified, uncomplicated; E87.6 Hypokalemia
CPT/HCPCS: 78226; 80053; 82248; 83690; 83735; 84100; 84703; 85025; 85027; 96361; 96374; 96375; 99285; A9537; J1790

== ENCOUNTER → 2024-09-16 07:24 | Outpatient (REF) | payer OTHER, SELFPAY | LOC: RAD 07:24 | PROVIDERS: ATTENDING PHYSICIAN Physician Assistant; FAMILY PHYSICIAN Student in an Organized Health Care Education/Training Program | DX: R11.2 Nausea with vomiting, unspecified (principal) | CPT/HCPCS: 78264; A9541 ==

== ENCOUNTER → 2024-09-16 08:08 | Outpatient (REF) | payer OTHER, SELFPAY ==
[2024-09-16 09:10] LABS: HCG, Serum Qualitative Screen Negative
== END ==
LOC: REG 08:08
PROVIDERS: ATTENDING PHYSICIAN Radiology Diagnostic Radiology
DX: Z36.9 Encounter for antenatal screening, unspecified (principal)
CPT/HCPCS: 36415; 84703